=== PATIENT | female | born 1930 | race Caucasian/White ===

== ENCOUNTER 2019-07-16 17:34 | Inpatient (IN) | payer BC ==
[~2019-07-16] VITALS: Ht 167.6 cm; Wt 71.9 kg
[2019-07-16 17:35] VITALS: BP 118/52
[2019-07-16] MEDS ORDERED: Omnipaque-300 100ml vial INJ PRN (18:00)
[2019-07-16 18:04] LABS: HEMATOCRIT 29.1 % (37.0-47.0); HEMOGLOBIN 9.7 G/DL (12.0-16.0); MEAN CORPUSCULAR VOLUME 83 FL (80-99); PLATELET COUNT 836 K/UL (150-450); RED CELL DISTRIBUTION WIDTH 12.9 % (11.6-14.8)
[2019-07-16 18:06] LABS: APPEARANCE,URINE CLOUDY; BILIRUBIN, URINE NEGATIVE (NEGATIVE); COLOR,URINE BROWN; GLUCOSE, URINE (UA) NEGATIVE (NEGATIVE); KETONES,URINE 1+ (NEGATIVE); LEUKOCYTE ESTERASE ,URINE 3+ (NEGATIVE); NITRITE,URINE POSITIVE (NEGATIVE); PH,URINE 5 (4.5-8.0); PROTEIN,URINE 3+ (NEGATIVE); UROBILINOGEN,URINE 1 MG/DL (0.0-1.0)
[2019-07-16 18:11] LABS: WHITE BLOOD COUNT 47.7 K/UL (4.8-10.8)
[2019-07-16 18:21] LABS: ANION GAP 6 mmol/L (5-15); BLOOD UREA NITROGEN 27 mg/dL (7-18); CALCIUM 9.4 MG/DL (8.5-10.1); CARBON DIOXIDE 34 MMOL/L (21-32); CHLORIDE 107 MMOL/L (98-107); CREATININE 0.8 MG/DL (0.55-1.30); SODIUM 146 MMOL/L (136-145)
[2019-07-16 18:22] LABS: AMMONIA 13 umol/L (11-32)
[2019-07-16 18:25] LABS: ALANINE AMINOTRANSFERASE 27 U/L (12-78); ALBUMIN 2.1 G/DL (3.4-5.0); ALBUMIN/GLOBULIN RATIO 0.5 (1.0-2.7); ALKALINE PHOSPHATASE 324 U/L (46-116); ASPARTATE AMINO TRANSFERASE 32 U/L (15-37); BILIRUBIN,TOTAL 0.5 MG/DL (0.2-1.0)
[2019-07-16] MEDS ORDERED: cefTRIAXone 1 GM in NS 55 ML IVPB ONE (19:00)
--- NOTE | 2019-07-16 19:08 | Diagnostic Imaging Report ---
Clinical Indication: Abdominal pain and distention Technique: No oral contrast utilized, per emergency room physician request IV administration nonionic contrast. Venous phase spiral acquisition obtained through the abdomen and pelvis. Multiplanar reconstructions were generated. Total dose length product 1316 mGycm. CTDIvol(s) 20 mGy. Dose reduction achieved using automated exposure control Comparison: none Findings: There is a massive mostly cystic with slight solid component septated mass occupying much of the pelvis and mid to lower abdomen. This measures 33 cm transverse by 14 cm AP by 24 cm craniocaudad. There is an inferior vena cava filter which appears compressed by the mass. It demonstrates a broken off strut that extends into the left common iliac vein. Inferior vena cava appears to be patent. The rectum is distended by feces, measures up to 9.5 cm in diameter. There is no evidence of colonic diverticulosis or diverticulitis. The appendix is not definitely visualized, but no findings to suggest acute appendicitis are evident. No free or loculated intraperitoneal gas or fluid. No small bowel distention. The liver, gallbladder, bile ducts, pancreas, spleen are all unremarkable. The the right adrenal is unremarkable. The left adrenal demonstrates a 2 cm mass which demonstrates nonspecific soft tissue attenuation. Right kidney demonstrates a 7 mm diameter lower pole calyceal calculus. Other smaller calculi are seen in the renal collecting systems bilaterally. There is a left renal cyst. There is mild bilateral hydronephrosis. The bladder is empty, contains a suprapubic catheter. There is bilateral hip and right posterior acetabular surgical hardware. This throws off streak artifact which obscures much of the lower pelvis. The included lung bases demonstrate interstitial septal thickening and groundglass opacity. The heart is enlarged. The bones demonstrate a compression fracture deformity of the L2 vertebral body. There are also compression fracture deformities T7-T8, and large Schmorl's nodes at T11 and 12. 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 Bilateral nonobstructive renal calculi Left renal cyst Postsurgical changes of both hips and the right pelvis Basilar pulmonary interstitial septal thickening and groundglass opacity, may indicate pulmonary edema Mild cardiomegaly Multiple vertebral compression fractures, age indeterminate. Consider MRI for further evaluation if considered clinically relevant This essentially agrees with the preliminary interpretation provided overnight by [facility] service. The CT scanner at [facility] is accredited by the [employer] and the scans are performed using protocols designed to limit radiation exposure to as low as reasonably achievable to attain images of sufficient resolution adequate for diagnostic evaluation.
[2019-07-16 19:55] VITALS: BP 135/45
[2019-07-16] MEDS ORDERED: SYMBICORT 16010.2 G1 IH (20:24)
[2019-07-16] MEDS ORDERED: RISPERDAL0.5 MG ORAL (20:24)
[2019-07-16] MEDS ORDERED: PANTOPRAZOLE SO40 MG ORAL (20:24)
[2019-07-16] MEDS ORDERED: SIMETHICONE80 MG ORAL (20:24)
[2019-07-16] MEDS ORDERED: CELEXA20 MG ORAL (20:24)
[2019-07-16] MEDS ORDERED: ASPIRIN81 MG ORAL (20:24)
[2019-07-16] MEDS ORDERED: PRAVASTATIN SOD20 M1 ORAL (20:24)
[2019-07-16] MEDS ORDERED: CRANBERRY200 M1 PO (20:24)
[2019-07-16 20:40] VITALS: BP 130/59
--- NOTE | 2019-07-16 21:05 | Emergency Room Report ---
History of Present Illness General Chief Complaint: Altered Mental Status Source: Medical Record, EMS Present Illness HPI 89-year-old female presents the ED for evaluation. Brought in by EMS from boarding [facility]. Increased altered level of consciousness x1 day. Also distended abdomen. Unclear how long patient has had a distended abdomen. Afebrile. No signs of distress upon arrival. Unable to find any additional history at this time. No other aggravating relieving factors. Denies any other associated symptoms Allergies: Coded Allergies: No Known Allergies (Unverified , 07/16/19) Patient History Past Medical History: COPD, GERD, dementia Pertinent Family History: none Social History: Denies: smoking, alcohol use, drug use Now: No Immunizations: UTD Reviewed Nursing Documentation: PMH: Agreed; PSxH: Agreed Nursing Documentation-PMH Hx Cardiac Problems: No - pvd Hx COPD: Yes Hx Gastrointestinal Problems: Yes - gerd History Of Psychiatric Problem: Yes - dementia Review of Systems All Other Systems: limited Physical Exam Vital Signs Date Time Temp Pulse Resp B/P (MAP) Pulse Ox O2 Delivery O2 Flow Rate FiO2 07/16/19 17:26 97.5 92 16 118/52 (74) 96 Room Air Sp02 EP Interpretation: reviewed, normal General Appearance: cachetic, lethargic Head: normocephalic Eyes: bilateral eye normal inspection, bilateral eye PERRL ENT: normal ENT inspection Neck: normal inspection Respiratory: chest non-tender, lungs clear, normal breath sounds, speaking full sentences Cardiovascular #1: regular rate, rhythm, no edema Gastrointestinal: normal bowel sounds, non tender, soft, no guarding, no rebound, distended Rectal: deferred Genitourinary: normal inspection Musculoskeletal: back normal Neurologic: other - nonvebral Psychiatric: other - nonverbal Skin: other - see nursing skin notes Lymphatic: normal inspection Medical Decision Making Diagnostic Impression: Primary Impression: AMS (altered mental status) Qualified Codes: R41.82 - Altered mental status, unspecified Additional Impressions: UTI (urinary tract infection) Qualified Codes: N39.0 - Urinary tract infection, site not specified Abdominal mass Qualified Codes: R19.00 - Intra-abdominal and pelvic swelling, mass and lump, unspecified site Sepsis Qualified Codes: A41.9 - Sepsis, unspecified organism ER Course Hospital Course 89 yo F presents with abd distension, AMS Differential diagnoses include: sepsis, dehydration, SBO, ascites Clinical course Patient placed on stretcher. color television console monitor. After initial history and physical I ordered labs, IV fluids, UA, and CT scan Labs - marked leukocytosis, Hb/Hct stable, lactic > 3, UA + bacteria EKG - NSR, no acute ischemic changes interpreted by me CT abdomen and pelvis -large cystic mass. no obstruction Given 30 cc/kg fluid bolus. Given broad-spectrum antibiotics. Patient is DNR/ comfort Case discussed with Dr. Harris and he agreed to accept the patient to his service for further care and support I feel this is a highly complex case requiring extensive working including EKG/ Rhythm strip, Xray/CT/US, Blood/urine lab work, repeat exams while in ED, and administration of strong opiates/narcotics for pain control, admission to hospital or close patient follow up. Diagnosis - AMS, UTI, abdominal mass, sepsis Patient admitted to floor in serious condition Labs Test 07/16/19 17:50 07/16/19 17:57 07/16/19 19:47 White Blood Count 47.7 K/UL (4.8-10.8) Red Blood Count 3.50 M/UL (4.20-5.40) Hemoglobin 9.7 G/DL (12.0-16.0) Hematocrit 29.1 % (37.0-47.0) Mean Corpuscular Volume 83 FL (80-99) Mean Corpuscular Hemoglobin 27.6 PG (27.0-31.0) Mean Corpuscular Hemoglobin Concent 33.3 G/DL (32.0-36.0) Red Cell Distribution Width 12.9 % (11.6-14.8) Platelet Count 836 K/UL (150-450) Mean Platelet Volume 4.7 FL (6.5-10.1) Neutrophils (%) (Auto) % (45.0-75.0) Lymphocytes (%) (Auto) % (20.0-45.0) Monocytes (%) (Auto) % (1.0-10.0) Eosinophils (%) (Auto) % (0.0-3.0) Basophils (%) (Auto) % (0.0-2.0) Differential Total Cells Counted 100 Neutrophils % (Manual) 90 % (45-75) Lymphocytes % (Manual) 6 % (20-45) Monocytes % (Manual) 3 % (1-10) Eosinophils % (Manual) 0 % (0-3) Basophils % (Manual) 0 % (0-2) Band Neutrophils 1 % (0-8) Platelet Estimate Increased Platelet Morphology Normal Polychromasia 1+ Sodium Level 146 MMOL/L (136-145) Potassium Level 4.0 MMOL/L (3.5-5.1) Chloride Level 107 MMOL/L (98-107) Carbon Dioxide Level 34 MMOL/L (21-32) Anion Gap 6 mmol/L (5-15) Blood Urea Nitrogen 27 mg/dL (7-18) Creatinine 0.8 MG/DL (0.55-1.30) Estimat Glomerular Filtration Rate mL/min (>60) Glucose Level 151 MG/DL (74-106) Lactic Acid Level 3.10 mmol/L (0.4-2.0) 3.10 mmol/L (0.66-2.22) Calcium Level 9.4 MG/DL (8.5-10.1) Total Bilirubin 0.5 MG/DL (0.2-1.0) Aspartate Amino Transf (AST/SGOT) 32 U/L (15-37) Alanine Aminotransferase (ALT/SGPT) 27 U/L (12-78) Alkaline Phosphatase 324 U/L (46-116) Ammonia 13 umol/L (11-32) Total Protein 6.6 G/DL (6.4-8.2) Albumin 2.1 G/DL (3.4-5.0) Globulin 4.5 g/dL Albumin/Globulin Ratio 0.5 (1.0-2.7) Lipase 92 U/L (73-393) Urine Color Brown Urine Appearance Cloudy Urine pH 5 (4.5-8.0) Urine Specific [place] 1.015 (1.005-1.035) Urine Protein 3+ (NEGATIVE) Urine Glucose (UA) Negative (NEGATIVE) Urine Ketones 1+ (NEGATIVE) Urine Blood 3+ (NEGATIVE) Urine Nitrite Positive (NEGATIVE) Urine Bilirubin Negative (NEGATIVE) Urine Urobilinogen 1 MG/DL (0.0-1.0) Urine Leukocyte Esterase 3+ (NEGATIVE) Urine RBC 5-10 /HPF (0 - 2) Urine WBC Tntc /HPF (0 - 2) Urine Squamous Epithelial Cells Few /LPF (NONE/OCC) Urine Bacteria Many /HPF (NONE) EKG Diagnostic Results Rate: normal Rhythm: NSR ST Segments: no acute changes ASA given to the pt in ED: No Rhythm Strip Diag. Results EP Interpretation: yes Rhythm: NSR, no PVC's, no ectopy CT/MRI/US Diagnostic Results CT/MRI/US Diagnostic Results : Imaging Test Ordered: CT A/P Impression Impression: Large complex cystic mass measuring 33.3 x 23.6 cm involving the anterior pelvis and abdomen which is difficult to determine its origin but may be arising form an ovary. Additional Findings: Reticular and groundglass opacities within the dependent lower lobes which may be inflammatory or infectious. Hepatic steatosis. Gallbladder is unremarkable. Spleen, pancreas unremarkable. Left adrenal gland nodule measuring up to 2 samaras which is incompletely characterized. Cysts and nonobstructing calculi within both kidneys. Suprapubic Gentile catheter is noted. Uterus is likely surgically absent. Large amount of stool within the rectum which may represent fecal impaction. Appendix is not visualized. IVC filter is noted. Vascular calcifications. Postsurgical changes within the pelvis and both femurs. Last Vital Signs Date Time Temp Pulse Resp B/P (MAP) Pulse Ox O2 Delivery O2 Flow Rate FiO2 07/16/19 19:55 98.5 86 20 135/45 100 Room Air Status: improved Disposition: ADMITTED INPATIENT Condition: Serious Referrals: NON PHYSICIAN (PCP) Medardo Navarro MD Jul 16, 2019 21:05
[2019-07-16 21:34] VITALS: BP 119/78
[2019-07-16] MEDS ORDERED: THEO-24100 MG PO (23:53)
[2019-07-16] MEDS ORDERED: CERTAVITE SR-A1 EACH PO (23:53)
[2019-07-16] MEDS ORDERED: VITAMIN C250 MG ORAL (23:53)
[2019-07-16] MEDS ORDERED: VITAMIN D31000 UNI3 PO (23:53)
[2019-07-17] VITALS (7 sets, daily range): BP systolic 117–161; BP diastolic 55–84
[2019-07-17] MEDS ORDERED: Simethicone 80mg tab ORAL PRN (00:15)
[2019-07-17] MEDS: D5 1/2NS 1,000 ML IV SCH ×2 (00:33→15:59)
[2019-07-17] MEDS ORDERED: Zolpidem 5mg tab ORAL PRN (05:15)
[2019-07-17 05:57] LABS: HEMATOCRIT 24.7 % (37.0-47.0); HEMOGLOBIN 7.7 G/DL (12.0-16.0); MEAN CORPUSCULAR VOLUME 86 FL (80-99); PLATELET COUNT 789 K/UL (150-450); RED BLOOD COUNT 2.88 M/UL (4.20-5.40); RED CELL DISTRIBUTION WIDTH 14.4 % (11.6-14.8)
[2019-07-17 06:05] LABS: WHITE BLOOD COUNT 36.5 K/UL (4.8-10.8)
[2019-07-17 06:19] LABS: ANION GAP 3 mmol/L (5-15); BLOOD UREA NITROGEN 20 mg/dL (7-18); CALCIUM 8.8 MG/DL (8.5-10.1); CARBON DIOXIDE 32 MMOL/L (21-32); CHLORIDE 111 MMOL/L (98-107); CREATININE 0.7 MG/DL (0.55-1.30); SODIUM 146 MMOL/L (136-145)
--- NOTE | 2019-07-17 06:26 | Consultation ---
History of Present Illness General Chief Complaint: Altered Mental Status Present Illness Allergies: Coded Allergies: PENICILLINS (Verified Allergy, Unknown, 07/16/19) Medication History Scheduled Ascorbic Acid* (Vitamin C*), Unknown Dose ORAL DAILY, (Reported) Aspirin* (Aspirin*), 81 MG ORAL DAILY, (Reported) Cholecalciferol (Vitamin D3) (Vitamin D3), 1,000 UNIT PO DAILY, (Reported) Citalopram Hydrobromide* (Celexa*), 20 MG ORAL DAILY, (Reported) Mu-Vits-Min Th/Lycopene/Lutein (Certavite Sr-Antioxidant Tab), 1 EACH PO DAILY, (Reported) Pantoprazole* (Pantoprazole*), 50 MG ORAL DAILY, (Reported) Pravastatin Sod* (Pravastatin Sod*), 40 MG ORAL BEDTIME, (Reported) Risperidone* (Risperdal*), 0.5 MG ORAL DAILY, (Reported) Scheduled PRN Simethicone* (Simethicone*), 125 MG ORAL Q8H PRN for GAS PAIN, (Reported) Miscellaneous Medications Budesonide/Formoterol Fumarate (Symbicort 160-4.5 Mcg Inhaler), 2 PUFF IH, ( Reported) Cranberry Extract (Cranberry), 500 MG PO, (Reported) Theophylline Anhydrous (Christiano-24), Unknown Dose PO, (Reported) Patient History Healthcare decision maker N Resuscitation status Do Not Resuscitate Advanced Directive on File Physical Exam Last 24 Hour Vital Signs Date Time Temp Pulse Resp B/P (MAP) Pulse Ox O2 Delivery O2 Flow Rate FiO2 07/17/19 04:00 99.3 92 20 128/59 (82) 94 07/17/19 00:00 98.4 95 20 123/60 (81) 94 07/16/19 22:45 Room Air 07/16/19 21:35 98.2 80 16 119/78 100 Room Air 07/16/19 21:34 98.2 80 16 119/78 100 Room Air 07/16/19 20:40 98.2 95 20 130/59 (82) 97 07/16/19 19:55 98.5 86 20 135/45 100 Room Air 07/16/19 17:35 92 16 Room Air 07/16/19 17:35 99.6 92 16 118/52 96 Room Air 07/16/19 17:26 97.5 92 16 118/52 (74) 96 Room Air Intake and Output 07/16/19 07/17/19 19:00 07:00 Intake Total 500 ml 1175 ml Output Total 200 ml Balance 300 ml 1175 ml Intake IV Total 500 ml 1175 ml Output Urine Total 200 ml Laboratory Tests Test 07/16/19 17:50 07/16/19 17:57 07/16/19 19:47 07/17/19 04:48 White Blood Count 47.7 K/UL (4.8-10.8) *H 36.5 K/UL (4.8-10.8) *H Red Blood Count 3.50 M/UL (4.20-5.40) L 2.88 M/UL (4.20-5.40) L Hemoglobin 9.7 G/DL (12.0-16.0) L 7.7 G/DL (12.0-16.0) L Hematocrit 29.1 % (37.0-47.0) L 24.7 % (37.0-47.0) L Mean Corpuscular Volume 83 FL (80-99) 86 FL (80-99) Mean Corpuscular Hemoglobin 27.6 PG (27.0-31.0) 26.6 PG (27.0-31.0) L Mean Corpuscular Hemoglobin Concent 33.3 G/DL (32.0-36.0) 31.0 G/DL (32.0-36.0) L Red Cell Distribution Width 12.9 % (11.6-14.8) 14.4 % (11.6-14.8) Platelet Count 836 K/UL (150-450) H 789 K/UL (150-450) H Mean Platelet Volume 4.7 FL (6.5-10.1) L 4.6 FL (6.5-10.1) L Neutrophils (%) (Auto) % (45.0-75.0) % (45.0-75.0) Lymphocytes (%) (Auto) % (20.0-45.0) % (20.0-45.0) Monocytes (%) (Auto) % (1.0-10.0) % (1.0-10.0) Eosinophils (%) (Auto) % (0.0-3.0) % (0.0-3.0) Basophils (%) (Auto) % (0.0-2.0) % (0.0-2.0) Differential Total Cells Counted 100 Neutrophils % (Manual) 90 % (45-75) H Pending Lymphocytes % (Manual) 6 % (20-45) L Pending Monocytes % (Manual) 3 % (1-10) Eosinophils % (Manual) 0 % (0-3) Basophils % (Manual) 0 % (0-2) Band Neutrophils 1 % (0-8) Platelet Estimate Increased H Pending Platelet Morphology Normal Pending Polychromasia 1+ Sodium Level 146 MMOL/L (136-145) H Pending Potassium Level 4.0 MMOL/L (3.5-5.1) Pending Chloride Level 107 MMOL/L (98-107) Pending Carbon Dioxide Level 34 MMOL/L (21-32) H Pending Anion Gap 6 mmol/L (5-15) Blood Urea Nitrogen 27 mg/dL (7-18) H Pending Creatinine 0.8 MG/DL (0.55-1.30) Pending Estimat Glomerular Filtration Rate mL/min (>60) Pending Glucose Level 151 MG/DL (74-106) H Pending Lactic Acid Level 3.10 mmol/L (0.4-2.0) H 3.10 mmol/L (0.66-2.22) H Calcium Level 9.4 MG/DL (8.5-10.1) Pending Total Bilirubin 0.5 MG/DL (0.2-1.0) Aspartate Amino Transf (AST/SGOT) 32 U/L (15-37) Alanine Aminotransferase (ALT/SGPT) 27 U/L (12-78) Alkaline Phosphatase 324 U/L (46-116) H Ammonia 13 umol/L (11-32) Total Protein 6.6 G/DL (6.4-8.2) Albumin 2.1 G/DL (3.4-5.0) L Globulin 4.5 g/dL Albumin/Globulin Ratio 0.5 (1.0-2.7) L Lipase 92 U/L (73-393) Urine Color Brown Urine Appearance Cloudy Urine pH 5 (4.5-8.0) Urine Specific [place] 1.015 (1.005-1.035) Urine Protein 3+ (NEGATIVE) H Urine Glucose (UA) Negative (NEGATIVE) Urine Ketones 1+ (NEGATIVE) H Urine Blood 3+ (NEGATIVE) H Urine Nitrite Positive (NEGATIVE) H Urine Bilirubin Negative (NEGATIVE) Urine Urobilinogen 1 MG/DL (0.0-1.0) H Urine Leukocyte Esterase 3+ (NEGATIVE) H Urine RBC 5-10 /HPF (0 - 2) H Urine WBC Tntc /HPF (0 - 2) H Urine Squamous Epithelial Cells Few /LPF (NONE/OCC) Urine Bacteria Many /HPF (NONE) H Microbiology Date/Time Source Procedure Growth Status 07/16/19 20:25 Rectum Received Height (Feet): 5 Height (Inches): 6.00 Weight (Pounds): 180 Medications Current Medications Medications (Trade) Dose Ordered Sig/Irene Route PRN Reason Start Time Stop Time Status Last Admin Dose Admin Acetaminophen (Tylenol) 650 mg Q8H PRN ORAL Mild Pain/Temp > 100.5 07/17/19 05:15 08/16/19 05:14 Aspirin (ASA) 81 mg DAILY ORAL 07/17/19 09:00 08/16/19 08:59 Budesonide/ Formoterol Fumarate (Symbicort 160/ 4.5) 2 puff BIDRT INH 07/17/19 10:00 08/16/19 09:59 Ceftriaxone Sodium 1 gm/ Dextrose 55 ml @ 110 mls/hr Q24H IVPB 07/17/19 19:00 07/24/19 18:59 Citalopram Hydrobromide (celeXA) 20 mg DAILY ORAL 07/17/19 09:00 08/16/19 08:59 Dextrose/Sodium Chloride 1,000 ml @ 60 mls/hr [id number] IV 07/17/19 00:15 08/16/19 00:14 07/17/19 00:33 Diphenhydramine HCl (Benadryl) 25 mg Q12H PRN ORAL Itching 07/17/19 05:15 08/16/19 05:14 Enoxaparin Sodium (Lovenox) 40 mg DAILY SUBQ 07/17/19 09:00 08/16/19 08:59 Iohexol (OMNIPAQUE-300 100ml) 100 ml NOW PRN INJ Radiology Procedure 07/16/19 18:00 07/18/19 17:46 Pantoprazole (Protonix) 40 mg DAILY@0630 ORAL 07/17/19 06:30 08/16/19 06:29 Pravastatin Sodium (Pravachol) 40 mg BEDTIME ORAL 07/17/19 21:00 08/16/19 20:59 Risperidone (RisperDAL) 0.5 mg DAILY ORAL 07/17/19 09:00 08/16/19 08:59 Simethicone (Mylicon) 125 mg Q8H PRN ORAL GAS PAIN 07/17/19 00:15 08/16/19 00:14 Zolpidem Tartrate (Ambien) 5 mg HSPRN PRN ORAL Insomnia 07/17/19 05:15 07/24/19 05:14 Assessment/Plan Assessment/Plan: Oncology Consult Source: Medical Record, EMS REQ MD: Felix Harris DOS: 07/17/19 RFC: Cystic mass eval ID 89-year-old female presents the ED for evaluation. Brought in by EMS from boarding care. Increased altered level of consciousness x1 day. Also distended abdomen. Unclear how long patient has had a distended abdomen. Afebrile. No signs of distress upon arrival. Unable to find any additional history at this time. No other aggravating relieving factors. Denies any other associated symptoms, imaging has been reviewed. Allergies: No Known Allergies (Unverified , 07/16/19) Patient History Past Medical History: COPD, GERD, dementia Pertinent Family History: none Social History: Denies: smoking, alcohol use, drug use Now: No Immunizations: UTD Reviewed Nursing Documentation: PMH: Agreed; PSxH: Agreed Nursing Documentation-PMH Hx Cardiac Problems: No - pvd Hx COPD: Yes Hx Gastrointestinal Problems: Yes - gerd History Of Psychiatric Problem: Yes - dementia Review of Systems All Other Systems: limited PE General: cachetic, lethargic, sleepy difficult to wake up Respiratory: ctab, no cwr Cardiovascular: regular rate, rhythm, no edema Gastrointestinal: soft, nt, nd Musculoskeletal: back normal Neurologic: other - nonvebral Lymphatic: normal inspection Labs: have been reviewed Imaging: reviewed Assessment and Recs: # Large cystic adexnal mass, likely c/w ovarian or gynecological primary --> apparently has had eval in the past --> imaging has been reviewed --> is on dnr/comfort care for this # Leukocytosis is related to underlying uti with septic shock --> wbc trend 48-->37 --> on abx as per id --> smear has been reviewed --> lactic acid remains high --> ivf have been started # Anemia of chronic disease --> panel ordered --> transfuse if hgb drops further, hgb 7.7 # AMS (altered mental status) --> likely related to underlying uti --> on abx as per id # UTI (urinary tract infection) --> lactic > 3, UA + bacteria # Abdominal mass # Sepsis # Dvt ppx scds Appreciate consultation and dw Gonzalo Dickey MD Jul 17, 2019 06:26
--- NOTE | 2019-07-17 07:03 | CDS Physician Query ---
Clarification is required for compliance, coding accuracy, and to reflect severity of illness for this patient Dear Gonzalo Cruz MD Date: 07/17/2019 Legal Support Specialist/CDS Name: Austin Kaiser 89-year-old female presents the ED for evaluation. Brought in by EMS from the [facility]. Increased altered level of consciousness x1 day. Also distended abdomen. Unclear how long patient has had a distended abdomen. "Altered Mental Status" documented in Consultation notes Please indicate the nature and chronicity of the condition below: [] Metabolic Encephalopathy [] Toxic Encephalopathy [] Toxic - Metabolic Encephalopathy [] Encephalopathy, Other [] Dementia with Delirium [] Hypoxic encephalopathy [] Posterior reversible encephalopathy syndrome [] Other: [] Not Applicable Present on Admission: [] Yes [] No [] Clinically Undetermined Physician signature Date Please also document in your Progress Notes and/or Discharge Summary and indicate if the condition was present on admission. MTDD
[2019-07-17 07:47] LABS: FERRITIN 317 NG/ML (8-388)
[2019-07-17 08:19] LABS: % IRON SATURATION 8 % (15-50); IRON 9 ug/dL (50-175); TOTAL IRON BINDING CAPACITY 115 ug/dL (250-450)
[2019-07-17] MEDS: Citalopram Hydrobromide 10mg Tab ORAL SCH (09:28)
[2019-07-17] MEDS: Aspirin Baby 81mg ORAL SCH (09:28)
[2019-07-17] MEDS: Enoxaparin 40mg Inj SUBQ SCH (09:29)
--- NOTE | 2019-07-17 12:13 | Consultation ---
History of Present Illness General Date patient seen: Jul 17, 2019 Chief Complaint: Altered Mental Status Present Illness HPI 89 y/o F with hx of COPD, GERD, PVD, Dementia presented to ED on 07/16 with 1 days of altered level of consciousness, distended abdomen Allergies: Coded Allergies: PENICILLINS (Verified Allergy, Unknown, 07/17/19) tolerates Ceftriaxone Medication History Scheduled Ascorbic Acid* (Vitamin C*), Unknown Dose ORAL DAILY, (Reported) Aspirin* (Aspirin*), 81 MG ORAL DAILY, (Reported) Cholecalciferol (Vitamin D3) (Vitamin D3), 1,000 UNIT PO DAILY, (Reported) Citalopram Hydrobromide* (Celexa*), 20 MG ORAL DAILY, (Reported) Mu-Vits-Min Th/Lycopene/Lutein (Certavite Sr-Antioxidant Tab), 1 EACH PO DAILY, (Reported) Pantoprazole* (Pantoprazole*), 50 MG ORAL DAILY, (Reported) Pravastatin Sod* (Pravastatin Sod*), 40 MG ORAL BEDTIME, (Reported) Risperidone* (Risperdal*), 0.5 MG ORAL DAILY, (Reported) Scheduled PRN Simethicone* (Simethicone*), 125 MG ORAL Q8H PRN for GAS PAIN, (Reported) Miscellaneous Medications Budesonide/Formoterol Fumarate (Symbicort 160-4.5 Mcg Inhaler), 2 PUFF IH, ( Reported) Cranberry Extract (Cranberry), 500 MG PO, (Reported) Theophylline Anhydrous (Christiano-24), Unknown Dose PO, (Reported) Patient History Healthcare decision maker N Resuscitation status Do Not Resuscitate Advanced Directive on File Patient History Narrative Pmhx: as above Shx: Denies: smoking, alcohol use, drug use Fhx: non contributory Physical Exam Physical Exam Narrative General Appearance: cachetic, lethargic Head: normocephalic Eyes: bilateral eye normal inspection, bilateral eye PERRL ENT: normal ENT inspection Neck: normal inspection Respiratory: chest non-tender, lungs clear, normal breath sounds, speaking full sentences Cardiovascular #1: regular rate, rhythm, no edema Gastrointestinal: normal bowel sounds, non tender, soft, no guarding, no rebound, distended Genitourinary: normal inspection Musculoskeletal: back normal Neurologic: other - nonvebral Psychiatric: other - nonverbal Skin: other - see nursing skin notes Lymphatic: normal inspection Last 24 Hour Vital Signs Date Time Temp Pulse Resp B/P (MAP) Pulse Ox O2 Delivery O2 Flow Rate FiO2 07/17/19 09:00 Room Air 07/17/19 08:00 97.7 102 18 143/55 (84) 94 07/17/19 04:00 99.3 92 20 128/59 (82) 94 07/17/19 00:00 98.4 95 20 123/60 (81) 94 07/16/19 22:45 Room Air 07/16/19 21:35 98.2 80 16 119/78 100 Room Air 07/16/19 21:34 98.2 80 16 119/78 100 Room Air 07/16/19 20:40 98.2 95 20 130/59 (82) 97 07/16/19 19:55 98.5 86 20 135/45 100 Room Air 07/16/19 17:35 92 16 Room Air 07/16/19 17:35 99.6 92 16 118/52 96 Room Air 07/16/19 17:26 97.5 92 16 118/52 (74) 96 Room Air Intake and Output 07/16/19 07/17/19 19:00 07:00 Intake Total 500 ml 1175 ml Output Total 200 ml 500 ml Balance 300 ml 675 ml Intake IV Total 500 ml 1175 ml Output Urine Total 200 ml 500 ml Laboratory Tests Test 07/16/19 17:50 07/16/19 17:57 07/16/19 19:47 07/17/19 04:48 White Blood Count 47.7 K/UL (4.8-10.8) *H 36.5 K/UL (4.8-10.8) *H Red Blood Count 3.50 M/UL (4.20-5.40) L 2.88 M/UL (4.20-5.40) L Hemoglobin 9.7 G/DL (12.0-16.0) L 7.7 G/DL (12.0-16.0) L Hematocrit 29.1 % (37.0-47.0) L 24.7 % (37.0-47.0) L Mean Corpuscular Volume 83 FL (80-99) 86 FL (80-99) Mean Corpuscular Hemoglobin 27.6 PG (27.0-31.0) 26.6 PG (27.0-31.0) L Mean Corpuscular Hemoglobin Concent 33.3 G/DL (32.0-36.0) 31.0 G/DL (32.0-36.0) L Red Cell Distribution Width 12.9 % (11.6-14.8) 14.4 % (11.6-14.8) Platelet Count 836 K/UL (150-450) H 789 K/UL (150-450) H Mean Platelet Volume 4.7 FL (6.5-10.1) L 4.6 FL (6.5-10.1) L Neutrophils (%) (Auto) % (45.0-75.0) % (45.0-75.0) Lymphocytes (%) (Auto) % (20.0-45.0) % (20.0-45.0) Monocytes (%) (Auto) % (1.0-10.0) % (1.0-10.0) Eosinophils (%) (Auto) % (0.0-3.0) % (0.0-3.0) Basophils (%) (Auto) % (0.0-2.0) % (0.0-2.0) Differential Total Cells Counted 100 100 Neutrophils % (Manual) 90 % (45-75) H 90 % (45-75) H Lymphocytes % (Manual) 6 % (20-45) L 4 % (20-45) L Monocytes % (Manual) 3 % (1-10) 6 % (1-10) Eosinophils % (Manual) 0 % (0-3) 0 % (0-3) Basophils % (Manual) 0 % (0-2) 0 % (0-2) Band Neutrophils 1 % (0-8) 0 % (0-8) Platelet Estimate Increased H Increased H Platelet Morphology Normal Normal Polychromasia 1+ Sodium Level 146 MMOL/L (136-145) H 146 MMOL/L (136-145) H Potassium Level 4.0 MMOL/L (3.5-5.1) 3.0 MMOL/L (3.5-5.1) L Chloride Level 107 MMOL/L (98-107) 111 MMOL/L (98-107) H Carbon Dioxide Level 34 MMOL/L (21-32) H 32 MMOL/L (21-32) Anion Gap 6 mmol/L (5-15) 3 mmol/L (5-15) L Blood Urea Nitrogen 27 mg/dL (7-18) H 20 mg/dL (7-18) H Creatinine 0.8 MG/DL (0.55-1.30) 0.7 MG/DL (0.55-1.30) Estimat Glomerular Filtration Rate mL/min (>60) mL/min (>60) Glucose Level 151 MG/DL (74-106) H 105 MG/DL (74-106) Lactic Acid Level 3.10 mmol/L (0.4-2.0) H 3.10 mmol/L (0.66-2.22) H Calcium Level 9.4 MG/DL (8.5-10.1) 8.8 MG/DL (8.5-10.1) Total Bilirubin 0.5 MG/DL (0.2-1.0) Aspartate Amino Transf (AST/SGOT) 32 U/L (15-37) Alanine Aminotransferase (ALT/SGPT) 27 U/L (12-78) Alkaline Phosphatase 324 U/L (46-116) H Ammonia 13 umol/L (11-32) Total Protein 6.6 G/DL (6.4-8.2) Albumin 2.1 G/DL (3.4-5.0) L Globulin 4.5 g/dL Albumin/Globulin Ratio 0.5 (1.0-2.7) L Lipase 92 U/L (73-393) Urine Color Brown Urine Appearance Cloudy Urine pH 5 (4.5-8.0) Urine Specific [place] 1.015 (1.005-1.035) Urine Protein 3+ (NEGATIVE) H Urine Glucose (UA) Negative (NEGATIVE) Urine Ketones 1+ (NEGATIVE) H Urine Blood 3+ (NEGATIVE) H Urine Nitrite Positive (NEGATIVE) H Urine Bilirubin Negative (NEGATIVE) Urine Urobilinogen 1 MG/DL (0.0-1.0) H Urine Leukocyte Esterase 3+ (NEGATIVE) H Urine RBC 5-10 /HPF (0 - 2) H Urine WBC Tntc /HPF (0 - 2) H Urine Squamous Epithelial Cells Few /LPF (NONE/OCC) Urine Bacteria Many /HPF (NONE) H Hypochromasia 3+ Anisocytosis 1+ Test 07/17/19 06:50 Reticulocyte Count 1.6 % (0.5-2.0) Iron Level 9 ug/dL (50-175) L Total Iron Binding Capacity 115 ug/dL (250-450) L Percent Iron Saturation 8 % (15-50) L Unsaturated Iron Binding 106 ug/dL (112-346) L Ferritin 317 NG/ML (8-388) Vitamin B12 Level 1773 PG/ML (193-986) H Microbiology Date/Time Source Procedure Growth Status 07/16/19 20:25 Rectum Received Height (Feet): 5 Height (Inches): 6.00 Weight (Pounds): 158 Medications Current Medications Medications (Trade) Dose Ordered Sig/Irene Route PRN Reason Start Time Stop Time Status Last Admin Dose Admin Acetaminophen (Tylenol) 650 mg Q8H PRN ORAL Mild Pain/Temp > 100.5 07/17/19 05:15 08/16/19 05:14 Aspirin (ASA) 81 mg DAILY ORAL 07/17/19 09:00 08/16/19 08:59 07/17/19 09:28 Budesonide/ Formoterol Fumarate (Symbicort 160/ 4.5) 2 puff BIDRT INH 07/17/19 10:00 08/16/19 09:59 07/17/19 09:33 Ceftriaxone Sodium 1 gm/ Dextrose 55 ml @ 110 mls/hr Q24H IVPB 07/17/19 19:00 07/24/19 18:59 Citalopram Hydrobromide (celeXA) 20 mg DAILY ORAL 07/17/19 09:00 08/16/19 08:59 07/17/19 09:28 Dextrose/Sodium Chloride 1,000 ml @ 60 mls/hr [id number] IV 07/17/19 00:15 08/16/19 00:14 07/17/19 00:33 Diphenhydramine HCl (Benadryl) 25 mg Q12H PRN ORAL Itching 07/17/19 05:15 08/16/19 05:14 Enoxaparin Sodium (Lovenox) 40 mg DAILY SUBQ 07/17/19 09:00 08/16/19 08:59 07/17/19 09:29 Iohexol (OMNIPAQUE-300 100ml) 100 ml NOW PRN INJ Radiology Procedure 07/16/19 18:00 07/18/19 17:46 Pantoprazole (Protonix) 40 mg DAILY@0630 ORAL 07/17/19 06:30 08/16/19 06:29 07/17/19 06:24 Pravastatin Sodium (Pravachol) 40 mg BEDTIME ORAL 07/17/19 21:00 08/16/19 20:59 Risperidone (RisperDAL) 0.5 mg DAILY ORAL 07/17/19 09:00 08/16/19 08:59 07/17/19 09:28 Simethicone (Mylicon) 125 mg Q8H PRN ORAL GAS PAIN 07/17/19 00:15 08/16/19 00:14 Zolpidem Tartrate (Ambien) 5 mg HSPRN PRN ORAL Insomnia 07/17/19 05:15 07/24/19 05:14 Assessment/Plan Assessment/Plan: Abx: Ceftriaxone 07/16- Assessment: Sepsis 2ry to UTI -u/a wbc tnct, nit +, leuk +3 Afebrile Hyperleukocytosis; improving Abd distention 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 Inferior vena cava filter, compressed by the mass and demonstrating a broken off strut. Evidence of rectal fecal impaction. 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 Bilateral nonobstructive renal calculi. Left renal cyst. Postsurgical changes of both hips and the right pelvis. Basilar pulmonary interstitial septal thickening and groundglass opacity, may indicate pulmonary edema. Mild cardiomegaly. Multiple vertebral compression fractures, age indeterminate. COPD GERD PVD Dementia Plan: -Continue empiric Ceftriaxone #2 pending urine culture -if HD unstable, switch to Meropenem -f/u cx -Monitor CBC/CMP, temperatures Thank you for this consultation. Will continue to follow along with you. Discussed with Shameka Nuñez M.D. Jul 17, 2019 12:13
--- NOTE | 2019-07-17 12:37 | GI Initial Consult Note ---
History of Present Illness General Date patient seen: Jul 17, 2019 Time patient seen: 12:37 Reason for Hospitalization: Altered Mental Status Referring physician: RADHA VITALE Reason for Consultation: Abdominal distention Present Illness HPI 89-year-old female presents the ED for evaluation. Brought in by EMS from boarding care. Increased altered level of consciousness x1 day. Also distended abdomen. Unclear how long patient has had a distended abdomen. Afebrile. No signs of distress upon arrival. Unable to find any additional history at this time. No other aggravating relieving factors. Denies any other associated symptoms. GI consulted for reported abdominal distention. ROS limited, patient with history of dementia. Patient seen, awake alert no apparent distress with no active signs or symptoms of any nausea vomiting. Patient's currently tolerating a regular diet without any complications noted. Abdominal pelvis CT was performed noted that the patient had a 33 x 14 x 24 cm complex cystic mass in the lower abdomen and upper pelvis which most likely represented malignancy of ovarian origin. In addition, the CT showed evidence of a rectal fecal impaction. Unknown history of endoscopic or colonoscopy. Laboratory review shows iron deficiency and elevated alkaline phosphatase. Home Meds Reported Medications Ascorbic Acid* (VITAMIN C*) 250 Mg Tablet, ORAL DAILY, #30 TAB 0 Refills 07/16/19 Mu-Vits-Min Th/Lycopene/Lutein (CERTAVITE SR-ANTIOXIDANT TAB) 1 Each Tablet, 1 EACH PO DAILY, TAB 07/16/19 Theophylline Anhydrous (JUANJOSE-24) 100 Mg Cap.er.24h, PO, CAP 07/16/19 Cholecalciferol (Vitamin D3) (VITAMIN D3) 1,000 Unit Tab.chew, 1000 UNIT PO DAILY, TAB 07/16/19 Budesonide/Formoterol Fumarate (SYMBICORT 160-4.5 MCG INHALER) 10.2 Gm Hfa.aer.ad, 2 PUFF IH, #1 INH 0 Refills 07/16/19 Simethicone* (SIMETHICONE*) 80 Mg Tab.chew, 125 MG ORAL Q8H PRN for GAS PAIN, # 20 TAB 0 Refills 07/16/19 Aspirin* (ASPIRIN*) 81 Mg Tab.chew, 81 MG ORAL DAILY, TAB 07/16/19 Pravastatin Sod* (PRAVASTATIN SOD*) 20 Mg Tablet, 40 MG ORAL BEDTIME, TAB 07/16/19 Citalopram Hydrobromide* (CELEXA*) 20 Mg Tablet, 20 MG ORAL DAILY, TAB 07/16/19 Cranberry Extract (CRANBERRY) 200 Mg Capsule, 500 MG PO, CAP 07/16/19 Risperidone* (RISPERDAL*) 0.5 Mg Tablet, 0.5 MG ORAL DAILY, #30 TAB 0 Refills 07/16/19 Pantoprazole* (PANTOPRAZOLE*) 40 Mg Tablet.dr, 50 MG ORAL DAILY, TAB 07/16/19 Med list reviewed/reconciled: Yes Allergies: Coded Allergies: PENICILLINS (Verified Allergy, Unknown, 07/17/19) tolerates Ceftriaxone Patient History Limited by: medical condition History Provided By: Medical Record PMH Narrative Past Medical History: COPD, GERD, dementia Pertinent Family History: none Social History: Denies: smoking, alcohol use, drug use Now: No Immunizations: UTD Reviewed Nursing Documentation: PMH: Agreed; PSxH: Agreed Nursing Documentation-PMH Hx Cardiac Problems: No - pvd Hx COPD: Yes Hx Gastrointestinal Problems: Yes - gerd History Of Psychiatric Problem: Yes - dementia Social History: Denies: smoking, alcohol use, drug use, other Review of Systems All Other Systems: limited Physical Exam Vital Signs Date Time Temp Pulse Resp B/P (MAP) Pulse Ox O2 Delivery O2 Flow Rate FiO2 07/16/19 17:26 97.5 92 16 118/52 (74) 96 Room Air Sp02 EP Interpretation: reviewed Labs Laboratory Tests Test 07/16/19 17:50 07/16/19 17:57 07/16/19 19:47 07/17/19 04:48 White Blood Count 47.7 K/UL (4.8-10.8) *H 36.5 K/UL (4.8-10.8) *H Red Blood Count 3.50 M/UL (4.20-5.40) L 2.88 M/UL (4.20-5.40) L Hemoglobin 9.7 G/DL (12.0-16.0) L 7.7 G/DL (12.0-16.0) L Hematocrit 29.1 % (37.0-47.0) L 24.7 % (37.0-47.0) L Mean Corpuscular Volume 83 FL (80-99) 86 FL (80-99) Mean Corpuscular Hemoglobin 27.6 PG (27.0-31.0) 26.6 PG (27.0-31.0) L Mean Corpuscular Hemoglobin Concent 33.3 G/DL (32.0-36.0) 31.0 G/DL (32.0-36.0) L Red Cell Distribution Width 12.9 % (11.6-14.8) 14.4 % (11.6-14.8) Platelet Count 836 K/UL (150-450) H 789 K/UL (150-450) H Mean Platelet Volume 4.7 FL (6.5-10.1) L 4.6 FL (6.5-10.1) L Neutrophils (%) (Auto) % (45.0-75.0) % (45.0-75.0) Lymphocytes (%) (Auto) % (20.0-45.0) % (20.0-45.0) Monocytes (%) (Auto) % (1.0-10.0) % (1.0-10.0) Eosinophils (%) (Auto) % (0.0-3.0) % (0.0-3.0) Basophils (%) (Auto) % (0.0-2.0) % (0.0-2.0) Differential Total Cells Counted 100 100 Neutrophils % (Manual) 90 % (45-75) H 90 % (45-75) H Lymphocytes % (Manual) 6 % (20-45) L 4 % (20-45) L Monocytes % (Manual) 3 % (1-10) 6 % (1-10) Eosinophils % (Manual) 0 % (0-3) 0 % (0-3) Basophils % (Manual) 0 % (0-2) 0 % (0-2) Band Neutrophils 1 % (0-8) 0 % (0-8) Platelet Estimate Increased H Increased H Platelet Morphology Normal Normal Polychromasia 1+ Sodium Level 146 MMOL/L (136-145) H 146 MMOL/L (136-145) H Potassium Level 4.0 MMOL/L (3.5-5.1) 3.0 MMOL/L (3.5-5.1) L Chloride Level 107 MMOL/L (98-107) 111 MMOL/L (98-107) H Carbon Dioxide Level 34 MMOL/L (21-32) H 32 MMOL/L (21-32) Anion Gap 6 mmol/L (5-15) 3 mmol/L (5-15) L Blood Urea Nitrogen 27 mg/dL (7-18) H 20 mg/dL (7-18) H Creatinine 0.8 MG/DL (0.55-1.30) 0.7 MG/DL (0.55-1.30) Estimat Glomerular Filtration Rate mL/min (>60) mL/min (>60) Glucose Level 151 MG/DL (74-106) H 105 MG/DL (74-106) Lactic Acid Level 3.10 mmol/L (0.4-2.0) H 3.10 mmol/L (0.66-2.22) H Calcium Level 9.4 MG/DL (8.5-10.1) 8.8 MG/DL (8.5-10.1) Total Bilirubin 0.5 MG/DL (0.2-1.0) Aspartate Amino Transf (AST/SGOT) 32 U/L (15-37) Alanine Aminotransferase (ALT/SGPT) 27 U/L (12-78) Alkaline Phosphatase 324 U/L (46-116) H Ammonia 13 umol/L (11-32) Total Protein 6.6 G/DL (6.4-8.2) Albumin 2.1 G/DL (3.4-5.0) L Globulin 4.5 g/dL Albumin/Globulin Ratio 0.5 (1.0-2.7) L Lipase 92 U/L (73-393) Urine Color Brown Urine Appearance Cloudy Urine pH 5 (4.5-8.0) Urine Specific [place] 1.015 (1.005-1.035) Urine Protein 3+ (NEGATIVE) H Urine Glucose (UA) Negative (NEGATIVE) Urine Ketones 1+ (NEGATIVE) H Urine Blood 3+ (NEGATIVE) H Urine Nitrite Positive (NEGATIVE) H Urine Bilirubin Negative (NEGATIVE) Urine Urobilinogen 1 MG/DL (0.0-1.0) H Urine Leukocyte Esterase 3+ (NEGATIVE) H Urine RBC 5-10 /HPF (0 - 2) H Urine WBC Tntc /HPF (0 - 2) H Urine Squamous Epithelial Cells Few /LPF (NONE/OCC) Urine Bacteria Many /HPF (NONE) H Hypochromasia 3+ Anisocytosis 1+ Test 07/17/19 06:50 Reticulocyte Count 1.6 % (0.5-2.0) Iron Level 9 ug/dL (50-175) L Total Iron Binding Capacity 115 ug/dL (250-450) L Percent Iron Saturation 8 % (15-50) L Unsaturated Iron Binding 106 ug/dL (112-346) L Ferritin 317 NG/ML (8-388) Vitamin B12 Level 1773 PG/ML (193-986) H General Appearance: no apparent distress Head: normocephalic EENT: normal ENT inspection Neck: supple Respiratory: normal breath sounds Cardiovascular: normal rate Gastrointestinal: distended, other - See HPI Rectal: other - CT Skin: normal inspection, normal color, no rash, warm/dry Lymphatic: normal inspection Current Medications Current Medications Medications (Trade) Dose Ordered Sig/Irene Route PRN Reason Start Time Stop Time Status Last Admin Dose Admin Acetaminophen (Tylenol) 650 mg Q8H PRN ORAL Mild Pain/Temp > 100.5 07/17/19 05:15 08/16/19 05:14 Aspirin (ASA) 81 mg DAILY ORAL 07/17/19 09:00 08/16/19 08:59 07/17/19 09:28 Budesonide/ Formoterol Fumarate (Symbicort 160/ 4.5) 2 puff BIDRT INH 07/17/19 10:00 08/16/19 09:59 07/17/19 09:33 Ceftriaxone Sodium 1 gm/ Dextrose 55 ml @ 110 mls/hr Q24H IVPB 07/17/19 19:00 07/24/19 18:59 Citalopram Hydrobromide (celeXA) 20 mg DAILY ORAL 07/17/19 09:00 08/16/19 08:59 07/17/19 09:28 Dextrose/Sodium Chloride 1,000 ml @ 60 mls/hr [id number] IV 07/17/19 00:15 08/16/19 00:14 07/17/19 00:33 Diphenhydramine HCl (Benadryl) 25 mg Q12H PRN ORAL Itching 07/17/19 05:15 08/16/19 05:14 Enoxaparin Sodium (Lovenox) 40 mg DAILY SUBQ 07/17/19 09:00 08/16/19 08:59 07/17/19 09:29 Iohexol (OMNIPAQUE-300 100ml) 100 ml NOW PRN INJ Radiology Procedure 07/16/19 18:00 07/18/19 17:46 Pantoprazole (Protonix) 40 mg DAILY@0630 ORAL 07/17/19 06:30 08/16/19 06:29 07/17/19 06:24 Pravastatin Sodium (Pravachol) 40 mg BEDTIME ORAL 07/17/19 21:00 08/16/19 20:59 Risperidone (RisperDAL) 0.5 mg DAILY ORAL 07/17/19 09:00 08/16/19 08:59 07/17/19 09:28 Simethicone (Mylicon) 125 mg Q8H PRN ORAL GAS PAIN 07/17/19 00:15 08/16/19 00:14 Zolpidem Tartrate (Ambien) 5 mg HSPRN PRN ORAL Insomnia 07/17/19 05:15 07/24/19 05:14 GI: Plan Problems: (1) Fecal impaction (2) Pelvic mass (3) Abdominal mass (4) Abdominal pain Plan No plans for any GI procedures at this time Follow-up oncology recommendations given cystic mass Start mineral oil daily and mineral oil enema x1 for fecal impaction Colace plus MiraLAX Consider digital disimpaction if medical management fails Monitor H&H, as needed transfusions Sent for fecal occult blood stool to rule out any GI bleed PPI We will follow along on a daily basis with any additional recommendations Discussed with Dr. Lainez. Thank you for this patient referral, we will follow. The patient was seen and examined at bedside and all new and available data was reviewed in the patients chart. I agree with the above findings, impression and plan. (Patient seen earlier today. Signature stamp does not reflect patient encounter time.). - MD Nicole Story,[facility] MEAT MANAGER Jul 17, 2019 12:37
[2019-07-17] MEDS ORDERED: Fleet's Mineral Oil Enema RECTAL SCH (12:45)
[2019-07-17] MEDS ORDERED: Miralax 17gm pkt ORAL PRN (12:45)
[2019-07-17] MEDS ORDERED: Mineral Oil 30ml ud ORAL PRN (12:45)
--- NOTE | 2019-07-17 12:48 | Cardiology Report ---
APPROVED REPORT EKG Measurement Heart [id number] Sinus rhythm with premature supraventricular complexes Nonspecific ST and T wave abnormality Abnormal ECG
[2019-07-17] MEDS: Docusate 100mg cap ORAL SCH ×2 (13:00→17:16)
--- NOTE | 2019-07-17 15:15 | History and Physical Report ---
DATE OF ADMISSION: 07/16/2019 TIME SEEN: 11 a.m. CONSULTANTS: 1. Sterling Kaiser M.D. 2. Kobi Lainez M.D. 3. Dr. Frankel. 4. Jessica Lima M.D.. 5. . CHIEF COMPLAINT: Altered mental status. BRIEF HISTORY: This is an 89-year-old female from an assisted living presented to [facility] last night with the above-mentioned diagnosis, also slight abdominal pain, distention was diagnosed UTI and sepsis and admitted to medical floor. Currently, very sleepy in bed, not answering questions. REVIEW OF SYSTEMS: Unavailable. PAST MEDICAL HISTORY: Altered mental status it looks like. PAST SURGICAL HISTORY: Unknown. ALLERGIES: Penicillin. SOCIAL HISTORY: Unable to obtain secondary to the patient's condition. OBJECTIVE: GENERAL: Lethargic in bed, sleepy, refusing to answer questions. VITAL SIGNS: Temperature 97, pulse 102, respiratory rate 18, blood pressure 143/55. CARDIOVASCULAR: No murmurs. LUNGS: Distant and clear. ABDOMEN: Bowel sound positive. Nontender. Nondistended. EXTREMITIES: No cyanosis or edema. NEUROLOGIC: The patient slightly lethargic in bed, not talking much. LABORATORY AND DIAGNOSTIC DATA: White count 36, hemoglobin and hematocrit 7.7 and 24, platelets is 789. BMP shows sodium 146, potassium 3.0, chloride 111, BUN 20. Albumin 2.1. Urinalysis show 3+ leukocyte esterase. ASSESSMENT: 1. Altered mental status. 2. Abdominal pain. 3. Abdominal distention. 4. UTI. 5. Sepsis. 6. Malnutrition. 7. 8. Anemia. 9. Thrombocytosis. PLAN: 1. PT and dietary evaluation. 2. CBC and BMP in the morning. 3. Resume home medications. 4. Antibiotics per Infectious Disease. 5. We will continue to follow the patient. Allen Harris D.O. DR: Gordo JOB#: [id number] CC:
--- NOTE | 2019-07-17 15:47 | Consultation ---
History of Present Illness General Date patient seen: Jul 17, 2019 Chief Complaint: Altered Mental Status Referring physician: RADHA VITALE Reason for Consultation: Abdominal distention Present Illness HPI This is a 89-year-old female with multiple medical comorbidities who is a alf resident that presented to the emergency department [facility] for evaluation of altered mental status and was identified to have abdominal distention. Patient was admitted for further care and management. Abnormal labs. Surgery called to evaluate and assist with care. Patient seen, patient evaluated, chart reviewed. Patient is arousable but cannot provide review of systems or history. She does identify some discomfort on palpation of the abdomen. No nausea vomiting per report. Unsure of last bowel movement. Unsure flatus. On examination identified to have a prior G- tube site which is well-healed Allergies: Coded Allergies: PENICILLINS (Verified Allergy, Unknown, 07/17/19) tolerates Ceftriaxone Medication History Scheduled Ascorbic Acid* (Vitamin C*), Unknown Dose ORAL DAILY, (Reported) Aspirin* (Aspirin*), 81 MG ORAL DAILY, (Reported) Cholecalciferol (Vitamin D3) (Vitamin D3), 1,000 UNIT PO DAILY, (Reported) Citalopram Hydrobromide* (Celexa*), 20 MG ORAL DAILY, (Reported) Mu-Vits-Min Th/Lycopene/Lutein (Certavite Sr-Antioxidant Tab), 1 EACH PO DAILY, (Reported) Pantoprazole* (Pantoprazole*), 50 MG ORAL DAILY, (Reported) Pravastatin Sod* (Pravastatin Sod*), 40 MG ORAL BEDTIME, (Reported) Risperidone* (Risperdal*), 0.5 MG ORAL DAILY, (Reported) Scheduled PRN Simethicone* (Simethicone*), 125 MG ORAL Q8H PRN for GAS PAIN, (Reported) Miscellaneous Medications Budesonide/Formoterol Fumarate (Symbicort 160-4.5 Mcg Inhaler), 2 PUFF IH, ( Reported) Cranberry Extract (Cranberry), 500 MG PO, (Reported) Theophylline Anhydrous (Christiano-24), Unknown Dose PO, (Reported) Patient History Limited by: medical condition History Provided By: Medical Record, PMD Healthcare decision maker N Resuscitation status Do Not Resuscitate Advanced Directive on File Past Medical/Surgical History Past Medical/Surgical History: (1) Abdominal mass (2) Sepsis (3) UTI (urinary tract infection) (4) AMS (altered mental status) (5) Fecal impaction (6) Pelvic mass (7) Abdominal pain Review of Systems ROS Narrative Cannot obtain given patient's medical condition Physical Exam General Appearance: no apparent distress Lines, tubes and drains: peripheral HEENT: mucous membranes moist Neck: normal inspection Respiratory/Chest: normal breath sounds, no respiratory distress, no accessory muscle use Cardiovascular/Chest: normal rate Abdomen: soft, hypoactive bowel sounds, distended, mass, other - Prior G-tube site well-healed in the left upper abdomen Extremities: normal inspection Skin Exam: warm/dry Neurologic: alert, responsive Last 24 Hour Vital Signs Date Time Temp Pulse Resp B/P (MAP) Pulse Ox O2 Delivery O2 Flow Rate FiO2 07/17/19 13:25 99.1 100 20 117/64 (81) 96 07/17/19 12:00 100.1 110 17 161/84 (109) 95 07/17/19 09:00 Room Air 07/17/19 08:00 97.7 102 18 143/55 (84) 94 07/17/19 04:00 99.3 92 20 128/59 (82) 94 07/17/19 00:00 98.4 95 20 123/60 (81) 94 07/16/19 22:45 Room Air 07/16/19 21:35 98.2 80 16 119/78 100 Room Air 07/16/19 21:34 98.2 80 16 119/78 100 Room Air 07/16/19 20:40 98.2 95 20 130/59 (82) 97 07/16/19 19:55 98.5 86 20 135/45 100 Room Air 07/16/19 17:35 92 16 Room Air 07/16/19 17:35 99.6 92 16 118/52 96 Room Air 07/16/19 17:26 97.5 92 16 118/52 (74) 96 Room Air Intake and Output 07/16/19 07/17/19 19:00 07:00 Intake Total 500 ml 1175 ml Output Total 200 ml 500 ml Balance 300 ml 675 ml Intake IV Total 500 ml 1175 ml Output Urine Total 200 ml 500 ml Laboratory Tests Test 07/16/19 17:50 07/16/19 17:57 07/16/19 19:47 07/17/19 04:48 White Blood Count 47.7 K/UL (4.8-10.8) *H 36.5 K/UL (4.8-10.8) *H Red Blood Count 3.50 M/UL (4.20-5.40) L 2.88 M/UL (4.20-5.40) L Hemoglobin 9.7 G/DL (12.0-16.0) L 7.7 G/DL (12.0-16.0) L Hematocrit 29.1 % (37.0-47.0) L 24.7 % (37.0-47.0) L Mean Corpuscular Volume 83 FL (80-99) 86 FL (80-99) Mean Corpuscular Hemoglobin 27.6 PG (27.0-31.0) 26.6 PG (27.0-31.0) L Mean Corpuscular Hemoglobin Concent 33.3 G/DL (32.0-36.0) 31.0 G/DL (32.0-36.0) L Red Cell Distribution Width 12.9 % (11.6-14.8) 14.4 % (11.6-14.8) Platelet Count 836 K/UL (150-450) H 789 K/UL (150-450) H Mean Platelet Volume 4.7 FL (6.5-10.1) L 4.6 FL (6.5-10.1) L Neutrophils (%) (Auto) % (45.0-75.0) % (45.0-75.0) Lymphocytes (%) (Auto) % (20.0-45.0) % (20.0-45.0) Monocytes (%) (Auto) % (1.0-10.0) % (1.0-10.0) Eosinophils (%) (Auto) % (0.0-3.0) % (0.0-3.0) Basophils (%) (Auto) % (0.0-2.0) % (0.0-2.0) Differential Total Cells Counted 100 100 Neutrophils % (Manual) 90 % (45-75) H 90 % (45-75) H Lymphocytes % (Manual) 6 % (20-45) L 4 % (20-45) L Monocytes % (Manual) 3 % (1-10) 6 % (1-10) Eosinophils % (Manual) 0 % (0-3) 0 % (0-3) Basophils % (Manual) 0 % (0-2) 0 % (0-2) Band Neutrophils 1 % (0-8) 0 % (0-8) Platelet Estimate Increased H Increased H Platelet Morphology Normal Normal Polychromasia 1+ Sodium Level 146 MMOL/L (136-145) H 146 MMOL/L (136-145) H Potassium Level 4.0 MMOL/L (3.5-5.1) 3.0 MMOL/L (3.5-5.1) L Chloride Level 107 MMOL/L (98-107) 111 MMOL/L (98-107) H Carbon Dioxide Level 34 MMOL/L (21-32) H 32 MMOL/L (21-32) Anion Gap 6 mmol/L (5-15) 3 mmol/L (5-15) L Blood Urea Nitrogen 27 mg/dL (7-18) H 20 mg/dL (7-18) H Creatinine 0.8 MG/DL (0.55-1.30) 0.7 MG/DL (0.55-1.30) Estimat Glomerular Filtration Rate mL/min (>60) mL/min (>60) Glucose Level 151 MG/DL (74-106) H 105 MG/DL (74-106) Lactic Acid Level 3.10 mmol/L (0.4-2.0) H 3.10 mmol/L (0.66-2.22) H Calcium Level 9.4 MG/DL (8.5-10.1) 8.8 MG/DL (8.5-10.1) Total Bilirubin 0.5 MG/DL (0.2-1.0) Aspartate Amino Transf (AST/SGOT) 32 U/L (15-37) Alanine Aminotransferase (ALT/SGPT) 27 U/L (12-78) Alkaline Phosphatase 324 U/L (46-116) H Ammonia 13 umol/L (11-32) Total Protein 6.6 G/DL (6.4-8.2) Albumin 2.1 G/DL (3.4-5.0) L Globulin 4.5 g/dL Albumin/Globulin Ratio 0.5 (1.0-2.7) L Lipase 92 U/L (73-393) Urine Color Brown Urine Appearance Cloudy Urine pH 5 (4.5-8.0) Urine Specific Varney 1.015 (1.005-1.035) Urine Protein 3+ (NEGATIVE) H Urine Glucose (UA) Negative (NEGATIVE) Urine Ketones 1+ (NEGATIVE) H Urine Blood 3+ (NEGATIVE) H Urine Nitrite Positive (NEGATIVE) H Urine Bilirubin Negative (NEGATIVE) Urine Urobilinogen 1 MG/DL (0.0-1.0) H Urine Leukocyte Esterase 3+ (NEGATIVE) H Urine RBC 5-10 /HPF (0 - 2) H Urine WBC Tntc /HPF (0 - 2) H Urine Squamous Epithelial Cells Few /LPF (NONE/OCC) Urine Bacteria Many /HPF (NONE) H Hypochromasia 3+ Anisocytosis 1+ Test 07/17/19 06:50 Reticulocyte Count 1.6 % (0.5-2.0) Iron Level 9 ug/dL (50-175) L Total Iron Binding Capacity 115 ug/dL (250-450) L Percent Iron Saturation 8 % (15-50) L Unsaturated Iron Binding 106 ug/dL (112-346) L Ferritin 317 NG/ML (8-388) Vitamin B12 Level 1773 PG/ML (193-986) H Microbiology Date/Time Source Procedure Growth Status 07/16/19 20:25 Rectum Received Height (Feet): 5 Height (Inches): 6.00 Weight (Pounds): 158 Medications Current Medications Medications (Trade) Dose Ordered Sig/Irene Route PRN Reason Start Time Stop Time Status Last Admin Dose Admin Acetaminophen (Tylenol) 650 mg Q8H PRN ORAL Mild Pain/Temp > 100.5 07/17/19 05:15 08/16/19 05:14 Aspirin (ASA) 81 mg DAILY ORAL 07/17/19 09:00 08/16/19 08:59 07/17/19 09:28 Budesonide/ Formoterol Fumarate (Symbicort 160/ 4.5) 2 puff BIDRT INH 07/17/19 10:00 08/16/19 09:59 07/17/19 09:33 Ceftriaxone Sodium 1 gm/ Dextrose 55 ml @ 110 mls/hr Q24H IVPB 07/17/19 19:00 07/24/19 18:59 Citalopram Hydrobromide (celeXA) 20 mg DAILY ORAL 07/17/19 09:00 08/16/19 08:59 07/17/19 09:28 Dextrose/Sodium Chloride 1,000 ml @ 60 mls/hr [id number] IV 07/17/19 00:15 08/16/19 00:14 07/17/19 00:33 Diphenhydramine HCl (Benadryl) 25 mg Q12H PRN ORAL Itching 07/17/19 05:15 08/16/19 05:14 Docusate Sodium (Colace) 100 mg THREE TIMES A DAY ORAL 07/17/19 13:00 08/16/19 12:59 Enoxaparin Sodium (Lovenox) 40 mg DAILY SUBQ 07/17/19 09:00 08/16/19 08:59 07/17/19 09:29 Iohexol (OMNIPAQUE-300 100ml) 100 ml NOW PRN INJ Radiology Procedure 07/16/19 18:00 07/18/19 17:46 Iron Sucrose 100 mg/Sodium Chloride 60 ml @ 240 mls/hr BEDTIME IV 07/17/19 21:00 07/19/19 21:14 Mineral Oil (Mineral Oil) 30 ml DAILYPRN PRN ORAL Constipation 07/17/19 12:45 08/16/19 12:44 Pantoprazole (Protonix) 40 mg DAILY@0630 ORAL 07/17/19 06:30 08/16/19 06:29 07/17/19 06:24 Polyethylene Glycol (Miralax) 17 gm DAILYPRN PRN ORAL Constipation 07/17/19 12:45 08/16/19 12:44 Pravastatin Sodium (Pravachol) 40 mg BEDTIME ORAL 07/17/19 21:00 08/16/19 20:59 Risperidone (RisperDAL) 0.5 mg DAILY ORAL 07/17/19 09:00 08/16/19 08:59 07/17/19 09:28 Simethicone (Mylicon) 125 mg Q8H PRN ORAL GAS PAIN 07/17/19 00:15 08/16/19 00:14 Zolpidem Tartrate (Ambien) 5 mg HSPRN PRN ORAL Insomnia 07/17/19 05:15 07/24/19 05:14 Assessment/Plan Problem List: (1) Abdominal mass Assessment & Plan: Findings: There is a massive mostly cystic with slight solid component septated mass occupying much of the pelvis and mid to lower abdomen. This measures 33 cm transverse by 14 cm AP by 24 cm craniocaudad. There is an inferior vena cava filter which appears compressed by the mass. It demonstrates a broken off strut that extends into the left common iliac vein. Inferior vena cava appears to be patent. The rectum is distended by feces, measures up to 9.5 cm in diameter. There is no evidence of colonic diverticulosis or diverticulitis. The appendix is not definitely visualized, but no findings to suggest acute appendicitis are evident. No free or loculated intraperitoneal gas or fluid. No small bowel distention. The liver, gallbladder, bile ducts, pancreas, spleen are all unremarkable. The the right adrenal is unremarkable. The left adrenal demonstrates a 2 cm mass which demonstrates nonspecific soft tissue attenuation. Right kidney demonstrates a 7 mm diameter lower pole calyceal calculus. Other smaller calculi are seen in the renal collecting systems bilaterally. There is a left renal cyst. There is mild bilateral hydronephrosis. The bladder is empty, contains a suprapubic catheter. There is bilateral hip and right posterior acetabular surgical hardware. This throws off streak artifact which obscures much of the lower pelvis. The included lung bases demonstrate interstitial septal thickening and groundglass opacity. The heart is enlarged. The bones demonstrate a compression fracture deformity of the L2 vertebral body. There are also compression fracture deformities T7-T8, and large Schmorl's nodes at T11 and 12. 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 Bilateral nonobstructive renal calculi Left renal cyst Postsurgical changes of both hips and the right pelvis Basilar pulmonary interstitial septal thickening and groundglass opacity, may indicate pulmonary edema Mild cardiomegaly Multiple vertebral compression fractures, age indeterminate. Consider MRI for further evaluation if considered clinically relevant ICD Codes: R19.00 - Intra-abdominal and pelvic swelling, mass and lump, unspecified site SNOMED: 709547199 Qualifiers: Qualified Codes: R19.00 - Intra-abdominal and pelvic swelling, mass and lump , unspecified site (2) Abdominal pain Assessment & Plan: Patient presented with abdominal distention and discomfort. No nausea vomiting fever chills. Significant leukocytosis. Abnormal labs. CT identified as above with large cystic mass ovarian origin. UTI Okay for diet from surgical standpoint IV fluids IV antibiotics Labs ordered A.m. KUB We will follow with serial abdominal examinations No acute surgical mention recommend at this time Thank you for let me participate in patient's care ICD Codes: R10.9 - Unspecified abdominal pain SNOMED: 11533566 (3) Decubitus skin ulcer Assessment & Plan: Pt presented on admission with multiple pressure injuries. DTPI noted to L buttocks. Base of wound is maroon and indurated with marginal erythema(L)(L)7cm x (W)4.3cm. Non-blanching erythema without induration or fluctuance noted to R buttocks (L) 8cm x (W)6.5cm.. R heel is boggy with non-blanching erythema. L heel is boggy with non-blanching erythema. Small dry callus noted to distal/lateral L foot .No other skin concerns noted. Tx.Plan: Apply Moisture Barrier Paste to R and L buttocks. Cover affected areas with Optifoam drsgs. Change every 3 days and prn. Apply Cavilon Skin Barrier to both heels. Cover each heel with Optifoam drsg. Change every 7 days and prn. Reposition at least every 2 hours or as tolerated. Off-load heels with pillow. Nutritional optimization when ready Thank you ICD Codes: L89.90 - Pressure ulcer of unspecified site, unspecified stage SNOMED: [id number] Alon Denise Jul 17, 2019 15:47
[2019-07-17] MEDS: cefTRIAXone 1 GM in D5W 55 ML IVPB SCH (18:19)
[2019-07-17] MEDS ORDERED: Iron Sucrose 100 MG in NS 55 ML IV SCH (21:00)
[2019-07-18] VITALS: BP 128/67
[2019-07-18 04:00] VITALS: BP 110/58
[2019-07-18 07:13] LABS: BASOPHILS % (AUTO) 0.7 % (0.0-2.0); EOSINOPHILS % (AUTO) 3.9 % (0.0-3.0); HEMATOCRIT 29.8 % (37.0-47.0); LYMPHOCYTES % (AUTO) 20.8 % (20.0-45.0); MEAN CORPUSCULAR VOLUME 85 FL (80-99); MONOCYTES % (AUTO) 10.5 % (1.0-10.0); NEUTROPHILS % (AUTO) 64.1 % (45.0-75.0); PLATELET COUNT 233 K/UL (150-450); RED BLOOD COUNT 3.49 M/UL (4.20-5.40); RED CELL DISTRIBUTION WIDTH 13.4 % (11.6-14.8); WHITE BLOOD COUNT 10.5 K/UL (4.8-10.8)
[2019-07-18 07:24] LABS: ALANINE AMINOTRANSFERASE 18 U/L (12-78); ALBUMIN 3.3 G/DL (3.4-5.0); ALBUMIN/GLOBULIN RATIO 0.8 (1.0-2.7); ALKALINE PHOSPHATASE 78 U/L (46-116); ANION GAP 11 mmol/L (5-15); ASPARTATE AMINO TRANSFERASE 18 U/L (15-37); BILIRUBIN,TOTAL 0.4 MG/DL (0.2-1.0); BLOOD UREA NITROGEN 39 mg/dL (7-18); CALCIUM 8.6 MG/DL (8.5-10.1); CARBON DIOXIDE 27 MMOL/L (21-32); CHLORIDE 102 MMOL/L (98-107); POTASSIUM 3.3 MMOL/L (3.5-5.1); SODIUM 140 MMOL/L (136-145)
[2019-07-18 08:00] VITALS: BP 149/69
[2019-07-18] MEDS: Citalopram Hydrobromide 10mg Tab ORAL SCH (09:33)
[2019-07-18] MEDS: Docusate 100mg cap ORAL SCH ×3 (09:34→18:47)
[2019-07-18] MEDS: Aspirin Baby 81mg ORAL SCH (09:34)
[2019-07-18] MEDS: Enoxaparin 40mg Inj SUBQ SCH (09:35)
[2019-07-18] MEDS: D5 1/2NS 1,000 ML IV SCH (09:43)
--- NOTE | 2019-07-18 09:44 | General Progress Note ---
Assessment/Plan Problem List: (1) Abdominal mass ICD Codes: R19.00 - Intra-abdominal and pelvic swelling, mass and lump, unspecified site SNOMED: 099546510 Qualifiers: Qualified Codes: R19.00 - Intra-abdominal and pelvic swelling, mass and lump , unspecified site (2) Sepsis ICD Codes: A41.9 - Sepsis, unspecified organism SNOMED: [id number] Qualifiers: Qualified Codes: A41.9 - Sepsis, unspecified organism (3) UTI (urinary tract infection) ICD Codes: N39.0 - Urinary tract infection, site not specified SNOMED: 64398341 Qualifiers: Qualified Codes: N39.0 - Urinary tract infection, site not specified (4) Fecal impaction ICD Codes: K56.41 - Fecal impaction SNOMED: 14446305 (5) Pelvic mass ICD Codes: R19.00 - Intra-abdominal and pelvic swelling, mass and lump, unspecified site SNOMED: 29148620 (6) Abdominal pain ICD Codes: R10.9 - Unspecified abdominal pain SNOMED: 91072175 (7) AMS (altered mental status) ICD Codes: R41.82 - Altered mental status, unspecified SNOMED: 672193393 Qualifiers: Qualified Codes: R41.82 - Altered mental status, unspecified (8) Decubitus skin ulcer ICD Codes: L89.90 - Pressure ulcer of unspecified site, unspecified stage SNOMED: 232556755 Status: unchanged Assessment/Plan: pt diet wound care abx gi f/u cbc bmp am Subjective Constitutional: Reports: weakness Allergies: Coded Allergies: PENICILLINS (Verified Allergy, Unknown, 07/17/19) tolerates Ceftriaxone All Systems: reviewed and negative except above Subjective sleepy calm Objective Last 24 Hour Vital Signs Date Time Temp Pulse Resp B/P (MAP) Pulse Ox O2 Delivery O2 Flow Rate FiO2 07/18/19 08:00 97.6 89 19 149/69 (95) 100 07/18/19 04:00 98.2 90 16 110/58 (75) 96 07/18/19 00:00 97.8 81 19 128/67 (87) 96 07/17/19 21:00 Room Air 07/17/19 20:09 98.2 07/17/19 20:00 100.0 107 19 141/81 (101) 96 07/17/19 16:20 96 07/17/19 16:00 99.0 96 23 129/62 (84) 93 07/17/19 13:25 99.1 100 20 117/64 (81) 96 07/17/19 12:00 100.1 110 17 161/84 (109) 95 Intake and Output 07/17/19 07/18/19 19:00 07:00 Intake Total 660 ml 2040 ml Output Total 350 ml 900 ml Balance 310 ml 1140 ml Intake Oral 600 ml 1200 ml IV Total 60 ml 540 ml Blood Product 300 ml Output Urine Total 350 ml 900 ml Laboratory Tests 07/18/19 06:45: White Blood Count 10.5#, Red Blood Count 3.49L, Hemoglobin 10.0L, Hematocrit 29.8L, Mean Corpuscular Volume 85, Mean Corpuscular Hemoglobin 28.6, Mean Corpuscular Hemoglobin Concent 33.5, Red Cell Distribution Width 13.4, Platelet Count 233#, Mean Platelet Volume 5.9L, Neutrophils (%) (Auto) 64.1, Lymphocytes (%) (Auto) 20.8, Monocytes (%) (Auto) 10.5H, Eosinophils (%) (Auto) 3.9H, Basophils (%) (Auto) 0.7, Sodium Level 140, Potassium Level 3.3L, Chloride Level 102, Carbon Dioxide Level 27, Anion Gap 11, Blood Urea Nitrogen 39H, Creatinine 8.0#H, Estimat Glomerular Filtration Rate , Glucose Level 90, Calcium Level 8.6, Total Bilirubin 0.4, Aspartate Amino Transf (AST/SGOT) 18, Alanine Aminotransferase (ALT/SGPT) 18, Alkaline Phosphatase 78, Total Protein 7.3, Albumin 3.3L, Globulin 4.0, Albumin/Globulin Ratio 0.8L Height (Feet): 5 Height (Inches): 6.00 Weight (Pounds): 158 General Appearance: lethargic EENT: normal ENT inspection Neck: normal alignment Cardiovascular: normal peripheral pulses, normal rate, regular rhythm Respiratory/Chest: chest wall non-tender, lungs clear, normal breath sounds Abdomen: normal bowel sounds, non tender, soft Extremities: normal inspection Edema: no edema noted Arm (L), no edema noted Arm (R), no edema noted Leg (L), no edema noted Leg (R), no edema noted Pedal (L), no edema noted Pedal (R), no edema noted Generalized Neurologic: motor weakness Skin: normal pigmentation, warm/dry Allen Harris DO Jul 18, 2019 09:44
--- NOTE | 2019-07-18 11:28 | Hematology/Onc Progress Note ---
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 --> apparently has had eval in the past --> imaging has been reviewed --> is on dnr/comfort care for this # Leukocytosis is related to underlying uti with septic shock --> wbc trend 48-->37->11 --> on abx as per id --> smear has been reviewed --> lactic acid remains high --> ivf have been started # Anemia of chronic disease --> panel ordered --> transfuse if hgb drops further, hgb 7.7-->8-->10 # AMS (altered mental status) --> likely related to underlying uti --> on abx as per id # UTI (urinary tract infection) --> lactic > 3, UA + bacteria # Abdominal mass # Sepsis # Dvt ppx scds Appreciate consultation and dw RN Subjective Constitutional: Denies: no symptoms, chills, fever, malaise, weakness, other HEENT: Denies: no symptoms, eye pain, blurred vision, tearing, double vision, ear pain, ear discharge, nose pain, nose congestion, throat pain, throat swelling, mouth pain, mouth swelling, other Cardiovascular: Denies: no symptoms, chest pain, edema, irregular heart rate, lightheadedness, palpitations, syncope, other Respiratory: Denies: no symptoms, cough, shortness of breath, SOB with excertion, SOB at rest, sputum, wheezing, other Gastrointestinal/Abdominal: Denies: no symptoms, abdomen distended, abdominal pain, black stools, tarry stools, blood in stool, constipated, diarrhea, difficulty swallowing, nausea, poor appetite, poor fluid intake, rectal bleeding , vomiting, other Genitourinary: Denies: no symptoms, burning, discharge, frequency, flank pain, hematuria, incontinence, pain, urgency, other Neurologic/Psychiatric: Denies: no symptoms, anxiety, depressed, emotional problems, headache, numbness, paresthesia, pre-existing deficit, seizure, tingling, tremors, weakness, other Endocrine: Denies: no symptoms, excessive sweating, flushing, intolerance to cold, intolerance to heat, increased hunger, increased thirst, increased urine, unexplained weight gain, unexplained weight loss, other Allergies: Coded Allergies: PENICILLINS (Verified Allergy, Unknown, 07/17/19) tolerates Ceftriaxone Subjective 07/18: no events, no bleeding, no f/c, no night sweats Objective Objective Current Medications Medications (Trade) Dose Ordered Sig/Irene Route PRN Reason Start Time Stop Time Status Last Admin Dose Admin Acetaminophen (Tylenol) 650 mg Q8H PRN ORAL Mild Pain/Temp > 100.5 07/17/19 05:15 08/16/19 05:14 07/17/19 19:39 Aspirin (ASA) 81 mg DAILY ORAL 07/17/19 09:00 08/16/19 08:59 07/18/19 09:34 Budesonide/ Formoterol Fumarate (Symbicort 160/ 4.5) 2 puff BIDRT INH 07/17/19 10:00 08/16/19 09:59 07/18/19 07:58 Ceftriaxone Sodium 1 gm/ Dextrose 55 ml @ 110 mls/hr Q24H IVPB 07/17/19 19:00 07/24/19 18:59 07/17/19 18:19 Citalopram Hydrobromide (celeXA) 20 mg DAILY ORAL 07/17/19 09:00 08/16/19 08:59 07/18/19 09:33 Dextrose/Sodium Chloride 1,000 ml @ 60 mls/hr [id number] IV 07/17/19 00:15 08/16/19 00:14 07/18/19 09:43 Diphenhydramine HCl (Benadryl) 25 mg Q12H PRN ORAL Itching 07/17/19 05:15 08/16/19 05:14 Docusate Sodium (Colace) 100 mg THREE TIMES A DAY ORAL 07/17/19 13:00 08/16/19 12:59 07/18/19 09:34 Enoxaparin Sodium (Lovenox) 40 mg DAILY SUBQ 07/17/19 09:00 08/16/19 08:59 07/18/19 09:35 Iohexol (OMNIPAQUE-300 100ml) 100 ml NOW PRN INJ Radiology Procedure 07/16/19 18:00 07/18/19 17:46 Iron Sucrose 100 mg/Sodium Chloride 60 ml @ 240 mls/hr BEDTIME IV 07/18/19 21:00 07/20/19 21:14 Mineral Oil (Mineral Oil) 30 ml DAILYPRN PRN ORAL Constipation 07/17/19 12:45 08/16/19 12:44 Ondansetron HCl (Zofran) 4 mg Q6H PRN IVP Nausea & Vomiting 07/17/19 20:30 08/16/19 18:29 Pantoprazole (Protonix) 40 mg DAILY@0630 ORAL 07/17/19 06:30 08/16/19 06:29 07/18/19 05:56 Polyethylene Glycol (Miralax) 17 gm DAILYPRN PRN ORAL Constipation 07/17/19 12:45 08/16/19 12:44 Pravastatin Sodium (Pravachol) 40 mg BEDTIME ORAL 07/17/19 21:00 08/16/19 20:59 07/17/19 20:26 Prochlorperazine (Compazine) 5 mg Q8H PRN IVP Nausea & Vomiting 07/17/19 20:30 08/16/19 20:29 Risperidone (RisperDAL) 0.5 mg DAILY ORAL 07/17/19 09:00 08/16/19 08:59 07/18/19 09:34 Simethicone (Mylicon) 125 mg Q8H PRN ORAL GAS PAIN 07/17/19 00:15 08/16/19 00:14 Zolpidem Tartrate (Ambien) 5 mg HSPRN PRN ORAL Insomnia 07/17/19 05:15 07/24/19 05:14 Last 24 Hour Vital Signs Date Time Temp Pulse Resp B/P (MAP) Pulse Ox O2 Delivery O2 Flow Rate FiO2 07/18/19 08:00 97.6 89 19 149/69 (95) 100 07/18/19 04:00 98.2 90 16 110/58 (75) 96 07/18/19 00:00 97.8 81 19 128/67 (87) 96 07/17/19 21:00 Room Air 07/17/19 20:09 98.2 07/17/19 20:00 100.0 107 19 141/81 (101) 96 07/17/19 16:20 96 07/17/19 16:00 99.0 96 23 129/62 (84) 93 07/17/19 13:25 99.1 100 20 117/64 (81) 96 07/17/19 12:00 100.1 110 17 161/84 (109) 95 07/17/19 09:00 Room Air 07/17/19 08:00 97.7 102 18 143/55 (84) 94 07/17/19 04:00 99.3 92 20 128/59 (82) 94 07/17/19 00:00 98.4 95 20 123/60 (81) 94 07/16/19 22:45 Room Air 07/16/19 21:35 98.2 80 16 119/78 100 Room Air 07/16/19 21:34 98.2 80 16 119/78 100 Room Air 07/16/19 20:40 98.2 95 20 130/59 (82) 97 07/16/19 19:55 98.5 86 20 135/45 100 Room Air 07/16/19 17:35 92 16 Room Air 07/16/19 17:35 99.6 92 16 118/52 96 Room Air 07/16/19 17:26 97.5 92 16 118/52 (74) 96 Room Air Intake and Output 07/17/19 07/18/19 19:00 07:00 Intake Total 660 ml 2040 ml Output Total 350 ml 900 ml Balance 310 ml 1140 ml Intake Oral 600 ml 1200 ml IV Total 60 ml 540 ml Blood Product 300 ml Output Urine Total 350 ml 900 ml Labs Test 07/16/19 17:50 07/16/19 17:57 07/16/19 19:47 07/17/19 04:48 White Blood Count 47.7 K/UL (4.8-10.8) 36.5 K/UL (4.8-10.8) Red Blood Count 3.50 M/UL (4.20-5.40) 2.88 M/UL (4.20-5.40) Hemoglobin 9.7 G/DL (12.0-16.0) 7.7 G/DL (12.0-16.0) Hematocrit 29.1 % (37.0-47.0) 24.7 % (37.0-47.0) Mean Corpuscular Volume 83 FL (80-99) 86 FL (80-99) Mean Corpuscular Hemoglobin 27.6 PG (27.0-31.0) 26.6 PG (27.0-31.0) Mean Corpuscular Hemoglobin Concent 33.3 G/DL (32.0-36.0) 31.0 G/DL (32.0-36.0) Red Cell Distribution Width 12.9 % (11.6-14.8) 14.4 % (11.6-14.8) Platelet Count 836 K/UL (150-450) 789 K/UL (150-450) Mean Platelet Volume 4.7 FL (6.5-10.1) 4.6 FL (6.5-10.1) Neutrophils (%) (Auto) % (45.0-75.0) % (45.0-75.0) Lymphocytes (%) (Auto) % (20.0-45.0) % (20.0-45.0) Monocytes (%) (Auto) % (1.0-10.0) % (1.0-10.0) Eosinophils (%) (Auto) % (0.0-3.0) % (0.0-3.0) Basophils (%) (Auto) % (0.0-2.0) % (0.0-2.0) Differential Total Cells Counted 100 100 Neutrophils % (Manual) 90 % (45-75) 90 % (45-75) Lymphocytes % (Manual) 6 % (20-45) 4 % (20-45) Monocytes % (Manual) 3 % (1-10) 6 % (1-10) Eosinophils % (Manual) 0 % (0-3) 0 % (0-3) Basophils % (Manual) 0 % (0-2) 0 % (0-2) Band Neutrophils 1 % (0-8) 0 % (0-8) Platelet Estimate Increased Increased Platelet Morphology Normal Normal Polychromasia 1+ Sodium Level 146 MMOL/L (136-145) 146 MMOL/L (136-145) Potassium Level 4.0 MMOL/L (3.5-5.1) 3.0 MMOL/L (3.5-5.1) Chloride Level 107 MMOL/L (98-107) 111 MMOL/L (98-107) Carbon Dioxide Level 34 MMOL/L (21-32) 32 MMOL/L (21-32) Anion Gap 6 mmol/L (5-15) 3 mmol/L (5-15) Blood Urea Nitrogen 27 mg/dL (7-18) 20 mg/dL (7-18) Creatinine 0.8 MG/DL (0.55-1.30) 0.7 MG/DL (0.55-1.30) Estimat Glomerular Filtration Rate mL/min (>60) mL/min (>60) Glucose Level 151 MG/DL (74-106) 105 MG/DL (74-106) Lactic Acid Level 3.10 mmol/L (0.4-2.0) 3.10 mmol/L (0.66-2.22) Calcium Level 9.4 MG/DL (8.5-10.1) 8.8 MG/DL (8.5-10.1) Total Bilirubin 0.5 MG/DL (0.2-1.0) Aspartate Amino Transf (AST/SGOT) 32 U/L (15-37) Alanine Aminotransferase (ALT/SGPT) 27 U/L (12-78) Alkaline Phosphatase 324 U/L (46-116) Ammonia 13 umol/L (11-32) Total Protein 6.6 G/DL (6.4-8.2) Albumin 2.1 G/DL (3.4-5.0) Globulin 4.5 g/dL Albumin/Globulin Ratio 0.5 (1.0-2.7) Lipase 92 U/L (73-393) Urine Color Brown Urine Appearance Cloudy Urine pH 5 (4.5-8.0) Urine Specific [place] 1.015 (1.005-1.035) Urine Protein 3+ (NEGATIVE) Urine Glucose (UA) Negative (NEGATIVE) Urine Ketones 1+ (NEGATIVE) Urine Blood 3+ (NEGATIVE) Urine Nitrite Positive (NEGATIVE) Urine Bilirubin Negative (NEGATIVE) Urine Urobilinogen 1 MG/DL (0.0-1.0) Urine Leukocyte Esterase 3+ (NEGATIVE) Urine RBC 5-10 /HPF (0 - 2) Urine WBC Tntc /HPF (0 - 2) Urine Squamous Epithelial Cells Few /LPF (NONE/OCC) Urine Bacteria Many /HPF (NONE) Hypochromasia 3+ Anisocytosis 1+ Test 07/17/19 06:50 07/18/19 06:45 Reticulocyte Count 1.6 % (0.5-2.0) Iron Level 9 ug/dL (50-175) Total Iron Binding Capacity 115 ug/dL (250-450) Percent Iron Saturation 8 % (15-50) Unsaturated Iron Binding 106 ug/dL (112-346) Ferritin 317 NG/ML (8-388) Vitamin B12 Level 1773 PG/ML (193-986) White Blood Count 10.5 K/UL (4.8-10.8) Red Blood Count 3.49 M/UL (4.20-5.40) Hemoglobin 10.0 G/DL (12.0-16.0) Hematocrit 29.8 % (37.0-47.0) Mean Corpuscular Volume 85 FL (80-99) Mean Corpuscular Hemoglobin 28.6 PG (27.0-31.0) Mean Corpuscular Hemoglobin Concent 33.5 G/DL (32.0-36.0) Red Cell Distribution Width 13.4 % (11.6-14.8) Platelet Count 233 K/UL (150-450) Mean Platelet Volume 5.9 FL (6.5-10.1) Neutrophils (%) (Auto) 64.1 % (45.0-75.0) Lymphocytes (%) (Auto) 20.8 % (20.0-45.0) Monocytes (%) (Auto) 10.5 % (1.0-10.0) Eosinophils (%) (Auto) 3.9 % (0.0-3.0) Basophils (%) (Auto) 0.7 % (0.0-2.0) Sodium Level 140 MMOL/L (136-145) Potassium Level 3.3 MMOL/L (3.5-5.1) Chloride Level 102 MMOL/L (98-107) Carbon Dioxide Level 27 MMOL/L (21-32) Anion Gap 11 mmol/L (5-15) Blood Urea Nitrogen 39 mg/dL (7-18) Creatinine 8.0 MG/DL (0.55-1.30) Estimat Glomerular Filtration Rate mL/min (>60) Glucose Level 90 MG/DL (74-106) Calcium Level 8.6 MG/DL (8.5-10.1) Total Bilirubin 0.4 MG/DL (0.2-1.0) Aspartate Amino Transf (AST/SGOT) 18 U/L (15-37) Alanine Aminotransferase (ALT/SGPT) 18 U/L (12-78) Alkaline Phosphatase 78 U/L (46-116) Total Protein 7.3 G/DL (6.4-8.2) Albumin 3.3 G/DL (3.4-5.0) Globulin 4.0 g/dL Albumin/Globulin Ratio 0.8 (1.0-2.7) Height (Feet): 5 Height (Inches): 6.00 Weight (Pounds): 158 Objective PE General: cachetic, lethargic, sleepy difficult to wake up Respiratory: ctab, no cwr Cardiovascular: regular rate, rhythm, no edema Gastrointestinal: soft, nt, nd Musculoskeletal: back normal Neurologic: other - nonvebral Lymphatic: normal inspection Gonzalo Frankel MD Jul 18, 2019 11:28
--- NOTE | 2019-07-18 11:56 | Diagnostic Imaging Report ---
Indication: Abdominal pain Technique: One view of the chest Comparison: none Findings: Central abdominal hyperdensity presumably represents massive cystic mass described on recent CT scan. Bowel gas pattern is unremarkable, with moderate gas is seen in the ascending and transverse colon, moderate stool in the right-sided colon, no small bowel distention.. Surgical hardware is seen in the bilateral hips and femurs. Surgical hardware is also seen in the right side of the pelvis. There is an inferior vena cava filter. Impression: Central abdominal hyperdensity, consistent with large cystic mass described on recent CT scan No definite acute process Other findings as noted
[2019-07-18 12:00] VITALS: BP 139/62
--- NOTE | 2019-07-18 12:35 | Infectious Diseases Prog Note ---
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 Inferior vena cava filter, compressed by the mass and demonstrating a broken off strut. Evidence of rectal fecal impaction. 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 Bilateral nonobstructive renal calculi. Left renal cyst. Postsurgical changes of both hips and the right pelvis. Basilar pulmonary interstitial septal thickening and groundglass opacity, may indicate pulmonary edema. Mild cardiomegaly. Multiple vertebral compression fractures, age indeterminate. COPD GERD PVD Dementia Plan: -Continue empiric Ceftriaxone #3 pending urine culture -if HD unstable, switch to Meropenem -f/u cx -Monitor CBC/CMP, temperatures -Repeat STAT BMP -REnal US and Renal eval Thank you for this consultation. Will continue to follow along with you. Discussed with RN Subjective Allergies: Coded Allergies: PENICILLINS (Verified Allergy, Unknown, 07/17/19) tolerates Ceftriaxone Subjective afebrile leukocytosis resolved Bcx NTD Cr jumped from 0.7 to 8.0 Objective Vital Signs Last 24 Hour Vital Signs Date Time Temp Pulse Resp B/P (MAP) Pulse Ox O2 Delivery O2 Flow Rate FiO2 07/18/19 09:00 Room Air 07/18/19 08:00 97.6 89 19 149/69 (95) 100 07/18/19 04:00 98.2 90 16 110/58 (75) 96 07/18/19 00:00 97.8 81 19 128/67 (87) 96 07/17/19 21:00 Room Air 07/17/19 20:09 98.2 07/17/19 20:00 100.0 107 19 141/81 (101) 96 07/17/19 16:20 96 07/17/19 16:00 99.0 96 23 129/62 (84) 93 07/17/19 13:25 99.1 100 20 117/64 (81) 96 Height (Feet): 5 Height (Inches): 6.00 Weight (Pounds): 158 Objective General Appearance: cachetic, lethargic Head: normocephalic Eyes: bilateral eye normal inspection, bilateral eye PERRL ENT: normal ENT inspection Neck: normal inspection Respiratory: chest non-tender, lungs clear, normal breath sounds, speaking full sentences Cardiovascular #1: regular rate, rhythm, no edema Gastrointestinal: normal bowel sounds, non tender, soft, no guarding, no rebound, distended Neurologic: other - nonvebral Skin: other - see nursing skin notes Microbiology Date/Time Source Procedure Growth Status 07/16/19 17:50 Blood Blood Culture - Preliminary NO GROWTH AFTER 24 HOURS Resulted 07/16/19 17:45 Blood Blood Culture - Preliminary NO GROWTH AFTER 24 HOURS Resulted 07/16/19 20:25 Rectum Received Laboratory Tests Test 07/18/19 06:45 White Blood Count 10.5 K/UL (4.8-10.8) # Red Blood Count 3.49 M/UL (4.20-5.40) L Hemoglobin 10.0 G/DL (12.0-16.0) L Hematocrit 29.8 % (37.0-47.0) L Mean Corpuscular Volume 85 FL (80-99) Mean Corpuscular Hemoglobin 28.6 PG (27.0-31.0) Mean Corpuscular Hemoglobin Concent 33.5 G/DL (32.0-36.0) Red Cell Distribution Width 13.4 % (11.6-14.8) Platelet Count 233 K/UL (150-450) # Mean Platelet Volume 5.9 FL (6.5-10.1) L Neutrophils (%) (Auto) 64.1 % (45.0-75.0) Lymphocytes (%) (Auto) 20.8 % (20.0-45.0) Monocytes (%) (Auto) 10.5 % (1.0-10.0) H Eosinophils (%) (Auto) 3.9 % (0.0-3.0) H Basophils (%) (Auto) 0.7 % (0.0-2.0) Sodium Level 140 MMOL/L (136-145) Potassium Level 3.3 MMOL/L (3.5-5.1) L Chloride Level 102 MMOL/L (98-107) Carbon Dioxide Level 27 MMOL/L (21-32) Anion Gap 11 mmol/L (5-15) Blood Urea Nitrogen 39 mg/dL (7-18) H Creatinine 8.0 MG/DL (0.55-1.30) #H Estimat Glomerular Filtration Rate mL/min (>60) Glucose Level 90 MG/DL (74-106) Calcium Level 8.6 MG/DL (8.5-10.1) Total Bilirubin 0.4 MG/DL (0.2-1.0) Aspartate Amino Transf (AST/SGOT) 18 U/L (15-37) Alanine Aminotransferase (ALT/SGPT) 18 U/L (12-78) Alkaline Phosphatase 78 U/L (46-116) Total Protein 7.3 G/DL (6.4-8.2) Albumin 3.3 G/DL (3.4-5.0) L Globulin 4.0 g/dL Albumin/Globulin Ratio 0.8 (1.0-2.7) L Current Medications Medications (Trade) Dose Ordered Sig/Irene Route PRN Reason Start Time Stop Time Status Last Admin Dose Admin Acetaminophen (Tylenol) 650 mg Q8H PRN ORAL Mild Pain/Temp > 100.5 07/17/19 05:15 08/16/19 05:14 07/17/19 19:39 Aspirin (ASA) 81 mg DAILY ORAL 07/17/19 09:00 08/16/19 08:59 07/18/19 09:34 Budesonide/ Formoterol Fumarate (Symbicort 160/ 4.5) 2 puff BIDRT INH 07/17/19 10:00 08/16/19 09:59 07/18/19 07:58 Ceftriaxone Sodium 1 gm/ Dextrose 55 ml @ 110 mls/hr Q24H IVPB 07/17/19 19:00 07/24/19 18:59 07/17/19 18:19 Citalopram Hydrobromide (celeXA) 20 mg DAILY ORAL 07/17/19 09:00 08/16/19 08:59 07/18/19 09:33 Dextrose/Sodium Chloride 1,000 ml @ 60 mls/hr [id number] IV 07/17/19 00:15 08/16/19 00:14 07/18/19 09:43 Diphenhydramine HCl (Benadryl) 25 mg Q12H PRN ORAL Itching 07/17/19 05:15 08/16/19 05:14 Docusate Sodium (Colace) 100 mg THREE TIMES A DAY ORAL 07/17/19 13:00 08/16/19 12:59 07/18/19 09:34 Enoxaparin Sodium (Lovenox) 40 mg DAILY SUBQ 07/17/19 09:00 08/16/19 08:59 07/18/19 09:35 Iohexol (OMNIPAQUE-300 100ml) 100 ml NOW PRN INJ Radiology Procedure 07/16/19 18:00 07/18/19 17:46 Iron Sucrose 100 mg/Sodium Chloride 60 ml @ 240 mls/hr BEDTIME IV 07/18/19 21:00 07/20/19 21:14 Mineral Oil (Mineral Oil) 30 ml DAILYPRN PRN ORAL Constipation 07/17/19 12:45 08/16/19 12:44 Ondansetron HCl (Zofran) 4 mg Q6H PRN IVP Nausea & Vomiting 07/17/19 20:30 08/16/19 18:29 Pantoprazole (Protonix) 40 mg DAILY@0630 ORAL 07/17/19 06:30 08/16/19 06:29 07/18/19 05:56 Polyethylene Glycol (Miralax) 17 gm DAILYPRN PRN ORAL Constipation 07/17/19 12:45 08/16/19 12:44 Pravastatin Sodium (Pravachol) 40 mg BEDTIME ORAL 07/17/19 21:00 08/16/19 20:59 07/17/19 20:26 Prochlorperazine (Compazine) 5 mg Q8H PRN IVP Nausea & Vomiting 07/17/19 20:30 08/16/19 20:29 Risperidone (RisperDAL) 0.5 mg DAILY ORAL 07/17/19 09:00 08/16/19 08:59 07/18/19 09:34 Simethicone (Mylicon) 125 mg Q8H PRN ORAL GAS PAIN 07/17/19 00:15 08/16/19 00:14 Zolpidem Tartrate (Ambien) 5 mg HSPRN PRN ORAL Insomnia 07/17/19 05:15 07/24/19 05:14 Shameka Pritchett M.D. Jul 18, 2019 12:35
[2019-07-18 13:17] LABS: ANION GAP 8 mmol/L (5-15); BLOOD UREA NITROGEN 18 mg/dL (7-18); CALCIUM 9.6 MG/DL (8.5-10.1); CARBON DIOXIDE 27 MMOL/L (21-32); CHLORIDE 110 MMOL/L (98-107); CREATININE 0.6 MG/DL (0.55-1.30); POTASSIUM 3.4 MMOL/L (3.5-5.1); SODIUM 145 MMOL/L (136-145)
--- NOTE | 2019-07-18 15:44 | Diagnostic Imaging Report ---
Indication: Acute renal failure Technique: Grayscale and duplex images of the kidneys, retroperitoneum, and bladder were obtained. Comparison: Abdomen pelvis CT dated 07/16/2019 Findings: Right kidney measures 9.6 cm in length. Left kidney measures 10.8 cm in length. Both kidneys demonstrate normal echogenicity. No hydronephrosis. The left kidney demonstrates a 1.7 cm cyst coming off of the upper pole. The right kidney demonstrates calculus measuring 8 mm in the right lower pole.. Normal inferior vena cava, IVC filter demonstrated on prior CT scan not clearly demonstrated.. Bladder is empty, contains a suprapubic catheter. Large septated mostly cystic mass described on prior CT scan is demonstrated. There is layering of debris in one of the larger cyst Impression: Negative for hydronephrosis. Note that hydronephrosis described on recent CT scan is not evident Nonobstructive right lower pole calyceal calculus, also described on prior CT And 2 bladder with a suprapubic catheter, also previously described Incidental finding left renal cyst.
[2019-07-18 16:00] VITALS: BP 131/69
[2019-07-18] MEDS: cefTRIAXone 1 GM in D5W 55 ML IVPB SCH (18:48)
[2019-07-18 20:00] VITALS: BP 131/66
[2019-07-18] MEDS: Iron Sucrose 100 MG in NS 55 ML IV SCH (21:40)
--- NOTE | 2019-07-18 22:23 | Surgery Progress Note ---
Surgery Progress Note Subjective Additional Comments stable comfortable abd distended no BM Objective Last 24 Hour Vital Signs Date Time Temp Pulse Resp B/P (MAP) Pulse Ox O2 Delivery O2 Flow Rate FiO2 07/18/19 16:00 98.1 99 18 131/69 (89) 96 07/18/19 12:00 98.1 91 17 139/62 (87) 97 07/18/19 09:00 Room Air 07/18/19 08:00 97.6 89 19 149/69 (95) 100 07/18/19 04:00 98.2 90 16 110/58 (75) 96 07/18/19 00:00 97.8 81 19 128/67 (87) 96 I&O Intake and Output 07/17/19 07/18/19 18:59 06:59 Intake Total 600 ml 2100 ml Output Total 350 ml 900 ml Balance 250 ml 1200 ml Intake Oral 600 ml 1200 ml IV Total 600 ml Blood Product 300 ml Output Urine Total 350 ml 900 ml Dressing: other Wound: other Drains: other Cardiovascular: RSR Respiratory: decreased breath sounds Abdomen: soft, distended, non-distended Extremities: no tenderness, no cyanosis Laboratory Tests Test 07/18/19 06:45 07/18/19 12:40 White Blood Count 10.5 K/UL (4.8-10.8) # Red Blood Count 3.49 M/UL (4.20-5.40) L Hemoglobin 10.0 G/DL (12.0-16.0) L Hematocrit 29.8 % (37.0-47.0) L Mean Corpuscular Volume 85 FL (80-99) Mean Corpuscular Hemoglobin 28.6 PG (27.0-31.0) Mean Corpuscular Hemoglobin Concent 33.5 G/DL (32.0-36.0) Red Cell Distribution Width 13.4 % (11.6-14.8) Platelet Count 233 K/UL (150-450) # Mean Platelet Volume 5.9 FL (6.5-10.1) L Neutrophils (%) (Auto) 64.1 % (45.0-75.0) Lymphocytes (%) (Auto) 20.8 % (20.0-45.0) Monocytes (%) (Auto) 10.5 % (1.0-10.0) H Eosinophils (%) (Auto) 3.9 % (0.0-3.0) H Basophils (%) (Auto) 0.7 % (0.0-2.0) Sodium Level 140 MMOL/L (136-145) 145 MMOL/L (136-145) Potassium Level 3.3 MMOL/L (3.5-5.1) L 3.4 MMOL/L (3.5-5.1) L Chloride Level 102 MMOL/L (98-107) 110 MMOL/L (98-107) H Carbon Dioxide Level 27 MMOL/L (21-32) 27 MMOL/L (21-32) Anion Gap 11 mmol/L (5-15) 8 mmol/L (5-15) Blood Urea Nitrogen 39 mg/dL (7-18) H 18 mg/dL (7-18) Creatinine 8.0 MG/DL (0.55-1.30) #H 0.6 MG/DL (0.55-1.30) # Estimat Glomerular Filtration Rate mL/min (>60) mL/min (>60) Glucose Level 90 MG/DL (74-106) 117 MG/DL (74-106) H Calcium Level 8.6 MG/DL (8.5-10.1) 9.6 MG/DL (8.5-10.1) Total Bilirubin 0.4 MG/DL (0.2-1.0) Aspartate Amino Transf (AST/SGOT) 18 U/L (15-37) Alanine Aminotransferase (ALT/SGPT) 18 U/L (12-78) Alkaline Phosphatase 78 U/L (46-116) Total Protein 7.3 G/DL (6.4-8.2) Albumin 3.3 G/DL (3.4-5.0) L Globulin 4.0 g/dL Albumin/Globulin Ratio 0.8 (1.0-2.7) L Plan Problems: (1) Abdominal mass Assessment & Plan: Findings: There is a massive mostly cystic with slight solid component septated mass occupying much of the pelvis and mid to lower abdomen. This measures 33 cm transverse by 14 cm AP by 24 cm craniocaudad. There is an inferior vena cava filter which appears compressed by the mass. It demonstrates a broken off strut that extends into the left common iliac vein. Inferior vena cava appears to be patent. The rectum is distended by feces, measures up to 9.5 cm in diameter. There is no evidence of colonic diverticulosis or diverticulitis. The appendix is not definitely visualized, but no findings to suggest acute appendicitis are evident. No free or loculated intraperitoneal gas or fluid. No small bowel distention. The liver, gallbladder, bile ducts, pancreas, spleen are all unremarkable. The the right adrenal is unremarkable. The left adrenal demonstrates a 2 cm mass which demonstrates nonspecific soft tissue attenuation. Right kidney demonstrates a 7 mm diameter lower pole calyceal calculus. Other smaller calculi are seen in the renal collecting systems bilaterally. There is a left renal cyst. There is mild bilateral hydronephrosis. The bladder is empty, contains a suprapubic catheter. There is bilateral hip and right posterior acetabular surgical hardware. This throws off streak artifact which obscures much of the lower pelvis. The included lung bases demonstrate interstitial septal thickening and groundglass opacity. The heart is enlarged. The bones demonstrate a compression fracture deformity of the L2 vertebral body. There are also compression fracture deformities T7-T8, and large Schmorl's nodes at T11 and 12. 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 Bilateral nonobstructive renal calculi Left renal cyst Postsurgical changes of both hips and the right pelvis Basilar pulmonary interstitial septal thickening and groundglass opacity, may indicate pulmonary edema Mild cardiomegaly Multiple vertebral compression fractures, age indeterminate. Consider MRI for further evaluation if considered clinically relevant (2) Abdominal pain Assessment & Plan: Patient presented with abdominal distention and discomfort. No nausea vomiting fever chills. Significant leukocytosis. Abnormal labs. CT identified as above with large cystic mass ovarian origin. UTI Okay for diet from surgical standpoint IV fluids IV antibiotics Labs ordered Findings: Central abdominal hyperdensity presumably represents massive cystic mass described on recent CT scan. Bowel gas pattern is unremarkable, with moderate gas is seen in the ascending and transverse colon, moderate stool in the right-sided colon, no small bowel distention.. Surgical hardware is seen in the bilateral hips and femurs. Surgical hardware is also seen in the right side of the pelvis. There is an inferior vena cava filter. Impression: Central abdominal hyperdensity, consistent with large cystic mass described on recent CT scan No definite acute process We will follow with serial abdominal examinations No acute surgical mention recommend at this time Thank you for let me participate in patient's care (3) Decubitus skin ulcer Assessment & Plan: Pt presented on admission with multiple pressure injuries. DTPI noted to L buttocks. Base of wound is maroon and indurated with marginal erythema(L)(L)7cm x (W)4.3cm. Non-blanching erythema without induration or fluctuance noted to R buttocks (L) 8cm x (W)6.5cm.. R heel is boggy with non-blanching erythema. L heel is boggy with non-blanching erythema. Small dry callus noted to distal/lateral L foot .No other skin concerns noted. Tx.Plan: Apply Moisture Barrier Paste to R and L buttocks. Cover affected areas with Optifoam drsgs. Change every 3 days and prn. Apply Cavilon Skin Barrier to both heels. Cover each heel with Optifoam drsg. Change every 7 days and prn. Reposition at least every 2 hours or as tolerated. Off-load heels with pillow. Nutritional optimization when ready Thank you Alon Denise Jul 18, 2019 22:23
[2019-07-19] VITALS: BP 132/63
[2019-07-19] MEDS: D5 1/2NS 1,000 ML IV SCH ×3 (02:32→23:22)
[2019-07-19 04:00] VITALS: BP 130/54
[2019-07-19 08:00] VITALS: BP_SYST 143; BP_SYST 97; BP_DIAS 58; BP_DIAS 70
[2019-07-19 08:20] LABS: HEMATOCRIT 28.7 % (37.0-47.0); HEMOGLOBIN 9.2 G/DL (12.0-16.0); MEAN CORPUSCULAR VOLUME 85 FL (80-99); PLATELET COUNT 850 K/UL (150-450); RED BLOOD COUNT 3.37 M/UL (4.20-5.40); RED CELL DISTRIBUTION WIDTH 13.9 % (11.6-14.8)
[2019-07-19 08:28] LABS: WHITE BLOOD COUNT 37.5 K/UL (4.8-10.8)
[2019-07-19 08:52] LABS: ANION GAP 8 mmol/L (5-15); BLOOD UREA NITROGEN 15 mg/dL (7-18); CALCIUM 8.9 MG/DL (8.5-10.1); CARBON DIOXIDE 28 MMOL/L (21-32); CHLORIDE 108 MMOL/L (98-107); CREATININE 0.7 MG/DL (0.55-1.30); POTASSIUM 2.9 MMOL/L (3.5-5.1); SODIUM 144 MMOL/L (136-145)
[2019-07-19] MEDS: Docusate 100mg cap ORAL SCH ×2 (09:00→13:00)
[2019-07-19] MEDS: Citalopram Hydrobromide 10mg Tab ORAL SCH (09:00)
[2019-07-19] MEDS: Aspirin Baby 81mg ORAL SCH (09:00)
[2019-07-19] MEDS: Enoxaparin 40mg Inj SUBQ SCH (09:30)
--- NOTE | 2019-07-19 09:39 | General Progress Note ---
Assessment/Plan Problem List: (1) Abdominal mass ICD Codes: R19.00 - Intra-abdominal and pelvic swelling, mass and lump, unspecified site SNOMED: 668431111 Qualifiers: Qualified Codes: R19.00 - Intra-abdominal and pelvic swelling, mass and lump , unspecified site (2) Sepsis ICD Codes: A41.9 - Sepsis, unspecified organism SNOMED: 00163624 Qualifiers: Qualified Codes: A41.9 - Sepsis, unspecified organism (3) UTI (urinary tract infection) ICD Codes: N39.0 - Urinary tract infection, site not specified SNOMED: 45019131 Qualifiers: Qualified Codes: N39.0 - Urinary tract infection, site not specified (4) Fecal impaction ICD Codes: K56.41 - Fecal impaction SNOMED: 50474554 (5) Pelvic mass ICD Codes: R19.00 - Intra-abdominal and pelvic swelling, mass and lump, unspecified site SNOMED: 59211749 (6) Abdominal pain ICD Codes: R10.9 - Unspecified abdominal pain SNOMED: 52884129 (7) AMS (altered mental status) ICD Codes: R41.82 - Altered mental status, unspecified SNOMED: 134972037 Qualifiers: Qualified Codes: R41.82 - Altered mental status, unspecified (8) Decubitus skin ulcer ICD Codes: L89.90 - Pressure ulcer of unspecified site, unspecified stage SNOMED: 848009670 Status: unchanged Assessment/Plan: pt diet wound care abx gi f/u cbc bmp am aru eval Subjective Constitutional: Reports: weakness Allergies: Coded Allergies: PENICILLINS (Verified Allergy, Unknown, 07/17/19) tolerates Ceftriaxone All Systems: reviewed and negative except above Subjective sleepy calm Objective Last 24 Hour Vital Signs Date Time Temp Pulse Resp B/P (MAP) Pulse Ox O2 Delivery O2 Flow Rate FiO2 07/19/19 08:00 97.8 73 18 143/70 (94) 100 07/19/19 08:00 99.5 73 20 97/58 (71) 100 07/19/19 04:00 97.5 88 20 130/54 (79) 96 07/19/19 00:47 100.0 07/19/19 00:00 100.6 100 20 132/63 (86) 95 07/18/19 21:00 Room Air 12/6/19 20:00 99.0 101 20 131/66 (87) 97 07/18/19 16:00 98.1 99 18 131/69 (89) 96 07/18/19 12:00 98.1 91 17 139/62 (87) 97 Intake and Output 07/18/19 07/19/19 19:00 07:00 Intake Total 1240 ml 55 ml Output Total 800 ml 300 ml Balance 440 ml -245 ml IV Total 540 ml 55 ml Other 700 ml Output Urine Total 800 ml 300 ml Laboratory Tests 07/18/19 12:40: Sodium Level 145, Potassium Level 3.4L, Chloride Level 110H, Carbon Dioxide Level 27, Anion Gap 8, Blood Urea Nitrogen 18, Creatinine 0.6#, Estimat Glomerular Filtration Rate , Glucose Level 117H, Calcium Level 9.6 07/19/19 07:43: Sodium Level 144, Potassium Level 2.9L, Chloride Level 108H, Carbon Dioxide Level 28, Anion Gap 8, Blood Urea Nitrogen 15, Creatinine 0.7, Estimat Glomerular Filtration Rate , Glucose Level 108H, Calcium Level 8.9, White Blood Count 37.5#*H, Red Blood Count 3.37L, Hemoglobin 9.2L, Hematocrit 28.7L, Mean Corpuscular Volume 85, Mean Corpuscular Hemoglobin 27.3, Mean Corpuscular Hemoglobin Concent 32.1, Red Cell Distribution Width 13.9, Platelet Count 850#H , Mean Platelet Volume 4.6L, Neutrophils (%) (Auto) , Lymphocytes (%) (Auto) , Monocytes (%) (Auto) , Eosinophils (%) (Auto) , Basophils (%) (Auto) , Neutrophils % (Manual) [Pending], Lymphocytes % (Manual) [Pending], Platelet Estimate [Pending], Platelet Morphology [Pending] Height (Feet): 5 Height (Inches): 6.00 Weight (Pounds): 158 General Appearance: lethargic EENT: normal ENT inspection Neck: normal alignment Cardiovascular: normal peripheral pulses, normal rate, regular rhythm Respiratory/Chest: chest wall non-tender, lungs clear, normal breath sounds Abdomen: normal bowel sounds, non tender, soft Extremities: normal inspection Edema: no edema noted Arm (L), no edema noted Arm (R), no edema noted Leg (L), no edema noted Leg (R), no edema noted Pedal (L), no edema noted Pedal (R), no edema noted Generalized Neurologic: motor weakness Skin: normal pigmentation, warm/dry Allen Harris DO Jul 19, 2019 09:39
--- NOTE | 2019-07-19 11:12 | Infectious Diseases Prog Note ---
Assessment/Plan Assessment/Plan Assessment: Sepsis 2ry to UTI -u/a wbc tnct, nit +, leuk +3; ucx >100k ESBL E.coli Low grade fever Hyperleukocytosis; overall improved (seems value of 10 was not real); combination of malignancy and UTI CARROLL (Cr jumped from 0.7 to 8)- repeat BMP was 0.6; value of 8 not real -Renal US: Negative for hydronephrosis. Note that hydronephrosis described on recent CT scan is not evident. Nonobstructive right lower pole calyceal calculus, also described on prior CT. And 2 bladder with a suprapubic catheter, also previously described. Incidental finding left renal cyst. 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 Inferior vena cava filter, compressed by the mass and demonstrating a broken off strut. Evidence of rectal fecal impaction. 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 Bilateral nonobstructive renal calculi. Left renal cyst. Postsurgical changes of both hips and the right pelvis. Basilar pulmonary interstitial septal thickening and groundglass opacity, may indicate pulmonary edema. Mild cardiomegaly. Multiple vertebral compression fractures, age indeterminate. COPD GERD PVD Dementia Plan: -Swith empiric Ceftriaxone #4 to Ertapenem for ESBL UTI -f/u cx -Monitor CBC/CMP, temperatures -aspiration precautions -heme onc f.u Thank you for this consultation. Will continue to follow along with you. Discussed with RN Subjective Allergies: Coded Allergies: PENICILLINS (Verified Allergy, Unknown, 07/17/19) tolerates Ceftriaxone Subjective Tm 100.6 seems like his labs yesterday were not right as wbc down ffrom 37 to 10 and today back on 37; and Cr from 0.7 to 8 and repeat BMP showed cr of 0.6 Bcx NTD Objective Vital Signs Last 24 Hour Vital Signs Date Time Temp Pulse Resp B/P (MAP) Pulse Ox O2 Delivery O2 Flow Rate FiO2 07/19/19 08:00 97.8 73 18 143/70 (94) 100 07/19/19 08:00 99.5 73 20 97/58 (71) 100 07/19/19 04:00 97.5 88 20 130/54 (79) 96 07/19/19 00:47 100.0 07/19/19 00:00 100.6 100 20 132/63 (86) 95 07/18/19 21:00 Room Air 07/18/19 20:00 99.0 101 20 131/66 (87) 97 07/18/19 16:00 98.1 99 18 131/69 (89) 96 07/18/19 12:00 98.1 91 17 139/62 (87) 97 Height (Feet): 5 Height (Inches): 6.00 Weight (Pounds): 158 Objective General Appearance: cachetic, lethargic Head: normocephalic Eyes: bilateral eye normal inspection, bilateral eye PERRL ENT: normal ENT inspection Neck: normal inspection Respiratory: chest non-tender, lungs clear, normal breath sounds, speaking full sentences Cardiovascular #1: regular rate, rhythm, no edema Gastrointestinal: normal bowel sounds, non tender, soft, no guarding, no rebound, distended Neurologic: other - nonvebral Skin: other - see nursing skin notes Microbiology Date/Time Source Procedure Growth Status 07/16/19 17:50 Blood Blood Culture - Preliminary NO GROWTH AFTER 48 HOURS Resulted 07/16/19 17:45 Blood Blood Culture - Preliminary NO GROWTH AFTER 48 HOURS Resulted 07/16/19 20:25 Nasal Nares MRSA Culture - Final NO METHICILLIN RESISTANT STAPH AUREUS... Complete 07/16/19 17:57 Urine,Clean Catch Urine Culture - Final Escherichia Coli - Esbl Complete 07/16/19 20:25 Rectum - Final NO CARBAPENEM-RESISTANT ENTEROBACTERI... Complete 07/16/19 20:25 Rectum VRE Culture - Final Enterococcus Faecium - Vre Enterococcus Faecalis - Vre Complete Laboratory Tests Test 07/18/19 12:40 07/19/19 07:43 Sodium Level 145 MMOL/L (136-145) 144 MMOL/L (136-145) Potassium Level 3.4 MMOL/L (3.5-5.1) L 2.9 MMOL/L (3.5-5.1) L Chloride Level 110 MMOL/L (98-107) H 108 MMOL/L (98-107) H Carbon Dioxide Level 27 MMOL/L (21-32) 28 MMOL/L (21-32) Anion Gap 8 mmol/L (5-15) 8 mmol/L (5-15) Blood Urea Nitrogen 18 mg/dL (7-18) 15 mg/dL (7-18) Creatinine 0.6 MG/DL (0.55-1.30) # 0.7 MG/DL (0.55-1.30) Estimat Glomerular Filtration Rate mL/min (>60) mL/min (>60) Glucose Level 117 MG/DL (74-106) H 108 MG/DL (74-106) H Calcium Level 9.6 MG/DL (8.5-10.1) 8.9 MG/DL (8.5-10.1) White Blood Count 37.5 K/UL (4.8-10.8) #*H Red Blood Count 3.37 M/UL (4.20-5.40) L Hemoglobin 9.2 G/DL (12.0-16.0) L Hematocrit 28.7 % (37.0-47.0) L Mean Corpuscular Volume 85 FL (80-99) Mean Corpuscular Hemoglobin 27.3 PG (27.0-31.0) Mean Corpuscular Hemoglobin Concent 32.1 G/DL (32.0-36.0) Red Cell Distribution Width 13.9 % (11.6-14.8) Platelet Count 850 K/UL (150-450) #H Mean Platelet Volume 4.6 FL (6.5-10.1) L Neutrophils (%) (Auto) % (45.0-75.0) Lymphocytes (%) (Auto) % (20.0-45.0) Monocytes (%) (Auto) % (1.0-10.0) Eosinophils (%) (Auto) % (0.0-3.0) Basophils (%) (Auto) % (0.0-2.0) Differential Total Cells Counted 100 Neutrophils % (Manual) 90 % (45-75) H Lymphocytes % (Manual) 4 % (20-45) L Monocytes % (Manual) 4 % (1-10) Eosinophils % (Manual) 1 % (0-3) Basophils % (Manual) 1 % (0-2) Band Neutrophils 0 % (0-8) Platelet Estimate Increased H Platelet Morphology Normal Hypochromasia 2+ Anisocytosis 1+ Current Medications Medications (Trade) Dose Ordered Sig/Irene Route PRN Reason Start Time Stop Time Status Last Admin Dose Admin Acetaminophen (Tylenol) 650 mg Q8H PRN ORAL Mild Pain/Temp > 100.5 07/17/19 05:15 08/16/19 05:14 07/19/19 00:17 Aspirin (ASA) 81 mg DAILY ORAL 07/17/19 09:00 08/16/19 08:59 07/18/19 09:34 Budesonide/ Formoterol Fumarate (Symbicort 160/ 4.5) 2 puff BIDRT INH 07/17/19 10:00 08/16/19 09:59 07/19/19 09:33 Ceftriaxone Sodium 1 gm/ Dextrose 55 ml @ 110 mls/hr Q24H IVPB 07/17/19 19:00 07/24/19 18:59 07/18/19 18:48 Citalopram Hydrobromide (celeXA) 20 mg DAILY ORAL 07/17/19 09:00 08/16/19 08:59 07/18/19 09:33 Dextrose/Sodium Chloride 1,000 ml @ 60 mls/hr [id number] IV 07/17/19 00:15 08/16/19 00:14 07/19/19 02:32 Diphenhydramine HCl (Benadryl) 25 mg Q12H PRN ORAL Itching 07/17/19 05:15 08/16/19 05:14 Docusate Sodium (Colace) 100 mg THREE TIMES A DAY ORAL 07/17/19 13:00 08/16/19 12:59 07/18/19 18:47 Enoxaparin Sodium (Lovenox) 40 mg DAILY SUBQ 07/17/19 09:00 08/16/19 08:59 07/19/19 09:30 Iron Sucrose 100 mg/Sodium Chloride 60 ml @ 240 mls/hr BEDTIME IV 07/18/19 21:00 07/20/19 21:14 07/18/19 21:40 Mineral Oil (Mineral Oil) 30 ml DAILYPRN PRN ORAL Constipation 07/17/19 12:45 08/16/19 12:44 Ondansetron HCl (Zofran) 4 mg Q6H PRN IVP Nausea & Vomiting 07/17/19 20:30 08/16/19 18:29 Pantoprazole (Protonix) 40 mg DAILY@0630 ORAL 07/17/19 06:30 08/16/19 06:29 07/19/19 06:13 Polyethylene Glycol (Miralax) 17 gm DAILYPRN PRN ORAL Constipation 07/17/19 12:45 08/16/19 12:44 Potassium Chloride 100 ml @ 100 mls/hr Q1HR IVPB 07/19/19 11:00 07/19/19 14:59 Pravastatin Sodium (Pravachol) 40 mg BEDTIME ORAL 07/17/19 21:00 08/16/19 20:59 07/18/19 21:41 Prochlorperazine (Compazine) 5 mg Q8H PRN IVP Nausea & Vomiting 07/17/19 20:30 08/16/19 20:29 Risperidone (RisperDAL) 0.5 mg DAILY ORAL 07/17/19 09:00 08/16/19 08:59 07/18/19 09:34 Simethicone (Mylicon) 125 mg Q8H PRN ORAL GAS PAIN 07/17/19 00:15 08/16/19 00:14 Zolpidem Tartrate (Ambien) 5 mg HSPRN PRN ORAL Insomnia 07/17/19 05:15 07/24/19 05:14 Shameka Pritchett M.D. Jul 19, 2019 11:12
[2019-07-19 12:00] VITALS: BP 136/66
--- NOTE | 2019-07-19 12:07 | Surgery Progress Note ---
Surgery Progress Note Subjective Additional Comments Patient seen examined bedside. No acute events. Labs noted today and likely labs from yesterday were a false result potentially contamination versus loss. Still with significant leukocytosis, low-grade fevers, abnormal labs. Examination unchanged with distended abdomen mass filled. Objective Last 24 Hour Vital Signs Date Time Temp Pulse Resp B/P (MAP) Pulse Ox O2 Delivery O2 Flow Rate FiO2 07/19/19 09:00 Room Air 07/19/19 08:00 97.8 73 18 143/70 (94) 100 07/19/19 08:00 99.5 73 20 97/58 (71) 100 07/19/19 04:00 97.5 88 20 130/54 (79) 96 07/19/19 00:47 100.0 07/19/19 00:00 100.6 100 20 132/63 (86) 95 07/18/19 21:00 Room Air 07/18/19 20:00 99.0 101 20 131/66 (87) 97 07/18/19 16:00 98.1 99 18 131/69 (89) 96 I&O Intake and Output 07/18/19 07/19/19 19:00 07:00 Intake Total 1240 ml 55 ml Output Total 800 ml 300 ml Balance 440 ml -245 ml IV Total 540 ml 55 ml Other 700 ml Output Urine Total 800 ml 300 ml Dressing: other Wound: other Drains: other Cardiovascular: RSR Respiratory: decreased breath sounds Abdomen: soft, distended, non-tender, present bowel sounds Extremities: no tenderness, no cyanosis Laboratory Tests Test 07/18/19 12:40 07/19/19 07:43 Sodium Level 145 MMOL/L (136-145) 144 MMOL/L (136-145) Potassium Level 3.4 MMOL/L (3.5-5.1) L 2.9 MMOL/L (3.5-5.1) L Chloride Level 110 MMOL/L (98-107) H 108 MMOL/L (98-107) H Carbon Dioxide Level 27 MMOL/L (21-32) 28 MMOL/L (21-32) Anion Gap 8 mmol/L (5-15) 8 mmol/L (5-15) Blood Urea Nitrogen 18 mg/dL (7-18) 15 mg/dL (7-18) Creatinine 0.6 MG/DL (0.55-1.30) # 0.7 MG/DL (0.55-1.30) Estimat Glomerular Filtration Rate mL/min (>60) mL/min (>60) Glucose Level 117 MG/DL (74-106) H 108 MG/DL (74-106) H Calcium Level 9.6 MG/DL (8.5-10.1) 8.9 MG/DL (8.5-10.1) White Blood Count 37.5 K/UL (4.8-10.8) #*H Red Blood Count 3.37 M/UL (4.20-5.40) L Hemoglobin 9.2 G/DL (12.0-16.0) L Hematocrit 28.7 % (37.0-47.0) L Mean Corpuscular Volume 85 FL (80-99) Mean Corpuscular Hemoglobin 27.3 PG (27.0-31.0) Mean Corpuscular Hemoglobin Concent 32.1 G/DL (32.0-36.0) Red Cell Distribution Width 13.9 % (11.6-14.8) Platelet Count 850 K/UL (150-450) #H Mean Platelet Volume 4.6 FL (6.5-10.1) L Neutrophils (%) (Auto) % (45.0-75.0) Lymphocytes (%) (Auto) % (20.0-45.0) Monocytes (%) (Auto) % (1.0-10.0) Eosinophils (%) (Auto) % (0.0-3.0) Basophils (%) (Auto) % (0.0-2.0) Differential Total Cells Counted 100 Neutrophils % (Manual) 90 % (45-75) H Lymphocytes % (Manual) 4 % (20-45) L Monocytes % (Manual) 4 % (1-10) Eosinophils % (Manual) 1 % (0-3) Basophils % (Manual) 1 % (0-2) Band Neutrophils 0 % (0-8) Platelet Estimate Increased H Platelet Morphology Normal Hypochromasia 2+ Anisocytosis 1+ Plan Problems: (1) Abdominal mass Assessment & Plan: Findings: There is a massive mostly cystic with slight solid component septated mass occupying much of the pelvis and mid to lower abdomen. This measures 33 cm transverse by 14 cm AP by 24 cm craniocaudad. There is an inferior vena cava filter which appears compressed by the mass. It demonstrates a broken off strut that extends into the left common iliac vein. Inferior vena cava appears to be patent. The rectum is distended by feces, measures up to 9.5 cm in diameter. There is no evidence of colonic diverticulosis or diverticulitis. The appendix is not definitely visualized, but no findings to suggest acute appendicitis are evident. No free or loculated intraperitoneal gas or fluid. No small bowel distention. The liver, gallbladder, bile ducts, pancreas, spleen are all unremarkable. The the right adrenal is unremarkable. The left adrenal demonstrates a 2 cm mass which demonstrates nonspecific soft tissue attenuation. Right kidney demonstrates a 7 mm diameter lower pole calyceal calculus. Other smaller calculi are seen in the renal collecting systems bilaterally. There is a left renal cyst. There is mild bilateral hydronephrosis. The bladder is empty, contains a suprapubic catheter. There is bilateral hip and right posterior acetabular surgical hardware. This throws off streak artifact which obscures much of the lower pelvis. The included lung bases demonstrate interstitial septal thickening and groundglass opacity. The heart is enlarged. The bones demonstrate a compression fracture deformity of the L2 vertebral body. There are also compression fracture deformities T7-T8, and large Schmorl's nodes at T11 and 12. 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 Bilateral nonobstructive renal calculi Left renal cyst Postsurgical changes of both hips and the right pelvis Basilar pulmonary interstitial septal thickening and groundglass opacity, may indicate pulmonary edema Mild cardiomegaly Multiple vertebral compression fractures, age indeterminate. Consider MRI for further evaluation if considered clinically relevant (2) Abdominal pain Assessment & Plan: Patient presented with abdominal distention and discomfort. No nausea vomiting fever chills. Significant leukocytosis. Abnormal labs. CT identified as above with large cystic mass ovarian origin. UTI Okay for diet from surgical standpoint IV fluids IV antibiotics Labs ordered Findings: Central abdominal hyperdensity presumably represents massive cystic mass described on recent CT scan. Bowel gas pattern is unremarkable, with moderate gas is seen in the ascending and transverse colon, moderate stool in the right-sided colon, no small bowel distention.. Surgical hardware is seen in the bilateral hips and femurs. Surgical hardware is also seen in the right side of the pelvis. There is an inferior vena cava filter. Impression: Central abdominal hyperdensity, consistent with large cystic mass described on recent CT scan No definite acute process We will follow with serial abdominal examinations No acute surgical mention recommend at this time Thank you for let me participate in patient's care (3) Decubitus skin ulcer Assessment & Plan: Pt presented on admission with multiple pressure injuries. DTPI noted to L buttocks. Base of wound is maroon and indurated with marginal erythema(L)(L)7cm x (W)4.3cm. Non-blanching erythema without induration or fluctuance noted to R buttocks (L) 8cm x (W)6.5cm.. R heel is boggy with non-blanching erythema. L heel is boggy with non-blanching erythema. Small dry callus noted to distal/lateral L foot .No other skin concerns noted. Wounds unlikely etiology of patient's sepsis. Tx.Plan: Apply Moisture Barrier Paste to R and L buttocks. Cover affected areas with Optifoam drsgs. Change every 3 days and prn. Apply Cavilon Skin Barrier to both heels. Cover each heel with Optifoam drsg. Change every 7 days and prn. Reposition at least every 2 hours or as tolerated. Off-load heels with pillow. Nutritional optimization when ready Thank you Alon Denise Jul 19, 2019 12:07
[2019-07-19] MEDS: Ertapenem 1 GM in NS 55 ML IVPB SCH (12:41)
[2019-07-19] MEDS: Docusate 100mg/10ml Liq ORAL SCH ×3 (14:00→17:26)
[2019-07-19] MEDS ORDERED: D5 1/2NS 1000ml IV ONE (15:29)
[2019-07-19] MEDS ORDERED: Tubing IV Blood Pump IV ONE (15:29)
[2019-07-19 16:00] VITALS: BP 139/72
[2019-07-19 20:00] VITALS: BP 129/58
[2019-07-19] MEDS: Iron Sucrose 100 MG in NS 55 ML IV SCH (21:05)
[2019-07-20] VITALS: BP 136/53
[2019-07-20 04:00] VITALS: BP 129/59
[2019-07-20 07:16] LABS: HEMATOCRIT 28.7 % (37.0-47.0); HEMOGLOBIN 9.2 G/DL (12.0-16.0); MEAN CORPUSCULAR VOLUME 85 FL (80-99); PLATELET COUNT 919 K/UL (150-450); RED BLOOD COUNT 3.38 M/UL (4.20-5.40); RED CELL DISTRIBUTION WIDTH 13.8 % (11.6-14.8)
[2019-07-20 07:32] LABS: WHITE BLOOD COUNT 40.7 K/UL (4.8-10.8)
[2019-07-20 07:41] LABS: ANION GAP 10 mmol/L (5-15); BLOOD UREA NITROGEN 14 mg/dL (7-18); CALCIUM 9.2 MG/DL (8.5-10.1); CARBON DIOXIDE 25 MMOL/L (21-32); CHLORIDE 110 MMOL/L (98-107); CHOLESTEROL 55 MG/DL (< 200); CREATININE 0.6 MG/DL (0.55-1.30); HDL CHOLESTEROL 25 MG/DL (40-60); POTASSIUM 2.9 MMOL/L (3.5-5.1); SODIUM 145 MMOL/L (136-145); TRIGLYCERIDES 41 MG/DL (30-150)
[2019-07-20 07:46] LABS: PHOSPHORUS 2.6 MG/DL (2.5-4.9)
[2019-07-20 08:00] VITALS: BP 130/62
--- NOTE | 2019-07-20 08:44 | General Progress Note ---
Assessment/Plan Problem List: (1) Abdominal mass ICD Codes: R19.00 - Intra-abdominal and pelvic swelling, mass and lump, unspecified site SNOMED: 200622327 Qualifiers: Qualified Codes: R19.00 - Intra-abdominal and pelvic swelling, mass and lump , unspecified site (2) Sepsis ICD Codes: A41.9 - Sepsis, unspecified organism SNOMED: 18224355 Qualifiers: Qualified Codes: A41.9 - Sepsis, unspecified organism (3) UTI (urinary tract infection) ICD Codes: N39.0 - Urinary tract infection, site not specified SNOMED: 92815686 Qualifiers: Qualified Codes: N39.0 - Urinary tract infection, site not specified (4) Fecal impaction ICD Codes: K56.41 - Fecal impaction SNOMED: 23594552 (5) Pelvic mass ICD Codes: R19.00 - Intra-abdominal and pelvic swelling, mass and lump, unspecified site SNOMED: 56896734 (6) Abdominal pain ICD Codes: R10.9 - Unspecified abdominal pain SNOMED: 99909414 (7) AMS (altered mental status) ICD Codes: R41.82 - Altered mental status, unspecified SNOMED: 002730372 Qualifiers: Qualified Codes: R41.82 - Altered mental status, unspecified (8) Decubitus skin ulcer ICD Codes: L89.90 - Pressure ulcer of unspecified site, unspecified stage SNOMED: 325967858 Status: unchanged Assessment/Plan: pt diet wound care abx gi f/u cbc bmp am dc plan snf Subjective Constitutional: Reports: weakness Allergies: Coded Allergies: PENICILLINS (Verified Allergy, Unknown, 07/17/19) tolerates Ceftriaxone All Systems: reviewed and negative except above Subjective sleepy calm Objective Last 24 Hour Vital Signs Date Time Temp Pulse Resp B/P (MAP) Pulse Ox O2 Delivery O2 Flow Rate FiO2 07/20/19 04:00 98.6 94 21 129/59 (82) 95 07/20/19 00:00 98.7 85 17 136/53 (80) 94 07/19/19 21:30 99.7 07/19/19 21:30 99.7 07/19/19 20:25 Room Air 07/19/19 20:00 101.3 108 20 129/58 (81) 95 07/19/19 16:00 98.0 90 18 139/72 (94) 96 07/19/19 12:00 97.7 87 18 136/66 (89) 95 07/19/19 09:00 Room Air Intake and Output 07/19/19 07/20/19 19:00 07:00 Intake Total 1335 ml Output Total 400 ml 400 ml Balance 935 ml -400 ml Intake Oral 880 ml IV Total 455 ml Output Urine Total 400 ml 400 ml Laboratory Tests 07/20/19 06:15: White Blood Count 40.7*H, Red Blood Count 3.38L, Hemoglobin 9.2L, Hematocrit 28.7L, Mean Corpuscular Volume 85, Mean Corpuscular Hemoglobin 27.1, Mean Corpuscular Hemoglobin Concent 32.0, Red Cell Distribution Width 13.8, Platelet Count 919H, Mean Platelet Volume 4.6L, Neutrophils (%) (Auto) , Lymphocytes (%) (Auto) , Monocytes (%) (Auto) , Eosinophils (%) (Auto) , Basophils (%) (Auto) , Neutrophils % (Manual) [Pending], Lymphocytes % (Manual) [Pending], Platelet Estimate [Pending], Platelet Morphology [Pending], Sodium Level 145, Potassium Level 2.9L, Chloride Level 110H, Carbon Dioxide Level 25, Anion Gap 10, Blood Urea Nitrogen 14, Creatinine 0.6, Estimat Glomerular Filtration Rate , Glucose Level 97, Hemoglobin A1c [Pending], Uric Acid 1.9L, Calcium Level 9.2, Phosphorus Level 2.6, Magnesium Level 1.9, Gamma Glutamyl Transpeptidase 264H, C -Reactive Protein, Quantitative 22.8H, Pro-B-Type Natriuretic Peptide 3913H, Triglycerides Level 41, Cholesterol Level 55, LDL Cholesterol 21, HDL Cholesterol 25L, Cholesterol/HDL Ratio 2.2L, Folate 18.2, Thyroid Stimulating Hormone (TSH) 3.556 Height (Feet): 5 Height (Inches): 6.00 Weight (Pounds): 158 General Appearance: lethargic EENT: normal ENT inspection Neck: normal alignment Cardiovascular: normal peripheral pulses, normal rate, regular rhythm Respiratory/Chest: chest wall non-tender, lungs clear, normal breath sounds Abdomen: normal bowel sounds, non tender, soft Extremities: normal inspection Edema: no edema noted Arm (L), no edema noted Arm (R), no edema noted Leg (L), no edema noted Leg (R), no edema noted Pedal (L), no edema noted Pedal (R), no edema noted Generalized Neurologic: motor weakness Skin: normal pigmentation, warm/dry Allen Harris DO Jul 20, 2019 08:44
[2019-07-20] MEDS: Docusate 100mg/10ml Liq ORAL SCH ×3 (09:07→17:57)
[2019-07-20] MEDS: Citalopram Hydrobromide 10mg Tab ORAL SCH (09:07)
[2019-07-20] MEDS: Aspirin Baby 81mg ORAL SCH (09:07)
[2019-07-20] MEDS: Enoxaparin 40mg Inj SUBQ SCH (09:14)
--- NOTE | 2019-07-20 09:26 | Hematology/Onc Progress Note ---
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 ovarian or gynecological primary --> apparently has had eval in the past --> imaging has been reviewed --> is on dnr/comfort care for this # Leukocytosis is related to underlying uti with septic shock in addition may be caused by malignancy --> wbc trend 48-->37->11-->40k --> on abx as per id --> smear has been reviewed --> lactic acid remains high --> ivf have been started # Anemia of chronic disease --> panel ordered and reviewed --> transfuse if hgb drops further, hgb 7.7-->8-->10-->9.2 # AMS (altered mental status) --> likely related to underlying uti --> on abx as per id # UTI (urinary tract infection) --> lactic > 3, UA + bacteria --> s/p abx # Sepsis # Dvt ppx scds Appreciate consultation and reshma RN Subjective HEENT: Denies: no symptoms, eye pain, blurred vision, tearing, double vision, ear pain, ear discharge, nose pain, nose congestion, throat pain, throat swelling, mouth pain, mouth swelling, other Cardiovascular: Denies: no symptoms, chest pain, edema, irregular heart rate, lightheadedness, palpitations, syncope, other Respiratory: Denies: no symptoms, cough, shortness of breath, SOB with excertion, SOB at rest, sputum, wheezing, other Genitourinary: Denies: no symptoms, burning, discharge, frequency, flank pain, hematuria, incontinence, pain, urgency, other Neurologic/Psychiatric: Denies: no symptoms, anxiety, depressed, emotional problems, headache, numbness, paresthesia, pre-existing deficit, seizure, tingling, tremors, weakness, other Endocrine: Denies: no symptoms, excessive sweating, flushing, intolerance to cold, intolerance to heat, increased hunger, increased thirst, increased urine, unexplained weight gain, unexplained weight loss, other Allergies: Coded Allergies: PENICILLINS (Verified Allergy, Unknown, 07/17/19) tolerates Ceftriaxone Subjective 07/18: no events, no bleeding, no f/c, no night sweats 07/20: no major changes, still with abdominal pain, passing gas Objective Objective Current Medications Medications (Trade) Dose Ordered Sig/Irene Route PRN Reason Start Time Stop Time Status Last Admin Dose Admin Acetaminophen (Tylenol) 650 mg Q8H PRN ORAL Mild Pain/Temp > 100.5 07/17/19 05:15 08/16/19 05:14 07/19/19 21:00 Aspirin (ASA) 81 mg DAILY ORAL 07/17/19 09:00 08/16/19 08:59 07/20/19 09:07 Budesonide/ Formoterol Fumarate (Symbicort 160/ 4.5) 2 puff BIDRT INH 07/17/19 10:00 08/16/19 09:59 07/19/19 09:33 Citalopram Hydrobromide (celeXA) 20 mg DAILY ORAL 07/17/19 09:00 08/16/19 08:59 07/20/19 09:07 Dextrose/Sodium Chloride 1,000 ml @ 60 mls/hr [id number] IV 07/17/19 00:15 08/16/19 00:14 07/19/19 23:22 Diphenhydramine HCl (Benadryl) 25 mg Q12H PRN ORAL Itching 07/17/19 05:15 08/16/19 05:14 Docusate Sodium (Colace) 100 mg THREE TIMES A DAY ORAL 07/19/19 14:00 08/16/19 13:59 07/20/19 09:07 Enoxaparin Sodium (Lovenox) 40 mg DAILY SUBQ 07/17/19 09:00 08/16/19 08:59 07/20/19 09:14 Ertapenem 1 gm/ Sodium Chloride 55 ml @ 110 mls/hr Q24H IVPB 07/19/19 12:00 07/24/19 11:59 07/19/19 12:41 Iron Sucrose 100 mg/Sodium Chloride 60 ml @ 240 mls/hr BEDTIME IV 07/18/19 21:00 07/20/19 21:14 07/19/19 21:05 Mineral Oil (Mineral Oil) 30 ml DAILYPRN PRN ORAL Constipation 07/17/19 12:45 08/16/19 12:44 Ondansetron HCl (Zofran) 4 mg Q6H PRN IVP Nausea & Vomiting 07/17/19 20:30 08/16/19 18:29 Pantoprazole (Protonix) 40 mg DAILY@0630 ORAL 07/17/19 06:30 08/16/19 06:29 07/20/19 05:58 Polyethylene Glycol (Miralax) 17 gm DAILYPRN PRN ORAL Constipation 07/17/19 12:45 08/16/19 12:44 Pravastatin Sodium (Pravachol) 40 mg BEDTIME ORAL 07/17/19 21:00 08/16/19 20:59 07/19/19 20:59 Prochlorperazine (Compazine) 5 mg Q8H PRN IVP Nausea & Vomiting 07/17/19 20:30 08/16/19 20:29 Risperidone (RisperDAL) 0.5 mg DAILY ORAL 07/17/19 09:00 08/16/19 08:59 07/20/19 09:07 Simethicone (Mylicon) 125 mg Q8H PRN ORAL GAS PAIN 07/17/19 00:15 08/16/19 00:14 Zolpidem Tartrate (Ambien) 5 mg HSPRN PRN ORAL Insomnia 07/17/19 05:15 07/24/19 05:14 Last 24 Hour Vital Signs Date Time Temp Pulse Resp B/P (MAP) Pulse Ox O2 Delivery O2 Flow Rate FiO2 07/20/19 08:00 98.5 94 20 130/62 (84) 96 07/20/19 04:00 98.6 94 21 129/59 (82) 95 07/20/19 00:00 98.7 85 17 136/53 (80) 94 07/19/19 21:30 99.7 07/19/19 21:30 99.7 07/19/19 20:25 Room Air 07/19/19 20:00 101.3 108 20 129/58 (81) 95 07/19/19 16:00 98.0 90 18 139/72 (94) 96 07/19/19 12:00 97.7 87 18 136/66 (89) 95 07/19/19 09:00 Room Air 07/19/19 08:00 97.8 73 18 143/70 (94) 100 07/19/19 08:00 99.5 73 20 97/58 (71) 100 07/19/19 04:00 97.5 88 20 130/54 (79) 96 07/19/19 00:00 100.6 100 20 132/63 (86) 95 07/18/19 21:00 Room Air 07/18/19 20:00 99.0 101 20 131/66 (87) 97 07/18/19 16:00 98.1 99 18 131/69 (89) 96 07/18/19 12:00 98.1 91 17 139/62 (87) 97 Intake and Output 07/19/19 07/20/19 19:00 07:00 Intake Total 1335 ml Output Total 400 ml 400 ml Balance 935 ml -400 ml Intake Oral 880 ml IV Total 455 ml Output Urine Total 400 ml 400 ml Labs Test 07/18/19 06:45 07/18/19 12:40 07/19/19 07:43 07/20/19 06:15 White Blood Count 10.5 K/UL (4.8-10.8) 37.5 K/UL (4.8-10.8) 40.7 K/UL (4.8-10.8) Red Blood Count 3.49 M/UL (4.20-5.40) 3.37 M/UL (4.20-5.40) 3.38 M/UL (4.20-5.40) Hemoglobin 10.0 G/DL (12.0-16.0) 9.2 G/DL (12.0-16.0) 9.2 G/DL (12.0-16.0) Hematocrit 29.8 % (37.0-47.0) 28.7 % (37.0-47.0) 28.7 % (37.0-47.0) Mean Corpuscular Volume 85 FL (80-99) 85 FL (80-99) 85 FL (80-99) Mean Corpuscular Hemoglobin 28.6 PG (27.0-31.0) 27.3 PG (27.0-31.0) 27.1 PG (27.0-31.0) Mean Corpuscular Hemoglobin Concent 33.5 G/DL (32.0-36.0) 32.1 G/DL (32.0-36.0) 32.0 G/DL (32.0-36.0) Red Cell Distribution Width 13.4 % (11.6-14.8) 13.9 % (11.6-14.8) 13.8 % (11.6-14.8) Platelet Count 233 K/UL (150-450) 850 K/UL (150-450) 919 K/UL (150-450) Mean Platelet Volume 5.9 FL (6.5-10.1) 4.6 FL (6.5-10.1) 4.6 FL (6.5-10.1) Neutrophils (%) (Auto) 64.1 % (45.0-75.0) % (45.0-75.0) % (45.0-75.0) Lymphocytes (%) (Auto) 20.8 % (20.0-45.0) % (20.0-45.0) % (20.0-45.0) Monocytes (%) (Auto) 10.5 % (1.0-10.0) % (1.0-10.0) % (1.0-10.0) Eosinophils (%) (Auto) 3.9 % (0.0-3.0) % (0.0-3.0) % (0.0-3.0) Basophils (%) (Auto) 0.7 % (0.0-2.0) % (0.0-2.0) % (0.0-2.0) Sodium Level 140 MMOL/L (136-145) 145 MMOL/L (136-145) 144 MMOL/L (136-145) 145 MMOL/L (136-145) Potassium Level 3.3 MMOL/L (3.5-5.1) 3.4 MMOL/L (3.5-5.1) 2.9 MMOL/L (3.5-5.1) 2.9 MMOL/L (3.5-5.1) Chloride Level 102 MMOL/L (98-107) 110 MMOL/L (98-107) 108 MMOL/L (98-107) 110 MMOL/L (98-107) Carbon Dioxide Level 27 MMOL/L (21-32) 27 MMOL/L (21-32) 28 MMOL/L (21-32) 25 MMOL/L (21-32) Anion Gap 11 mmol/L (5-15) 8 mmol/L (5-15) 8 mmol/L (5-15) 10 mmol/L (5-15) Blood Urea Nitrogen 39 mg/dL (7-18) 18 mg/dL (7-18) 15 mg/dL (7-18) 14 mg/dL (7-18) Creatinine 8.0 MG/DL (0.55-1.30) 0.6 MG/DL (0.55-1.30) 0.7 MG/DL (0.55-1.30) 0.6 MG/DL (0.55-1.30) Estimat Glomerular Filtration Rate mL/min (>60) mL/min (>60) mL/min (>60) mL/min (>60) Glucose Level 90 MG/DL (74-106) 117 MG/DL (74-106) 108 MG/DL (74-106) 97 MG/DL (74-106) Calcium Level 8.6 MG/DL (8.5-10.1) 9.6 MG/DL (8.5-10.1) 8.9 MG/DL (8.5-10.1) 9.2 MG/DL (8.5-10.1) Total Bilirubin 0.4 MG/DL (0.2-1.0) Aspartate Amino Transf (AST/SGOT) 18 U/L (15-37) Alanine Aminotransferase (ALT/SGPT) 18 U/L (12-78) Alkaline Phosphatase 78 U/L (46-116) Total Protein 7.3 G/DL (6.4-8.2) Albumin 3.3 G/DL (3.4-5.0) Globulin 4.0 g/dL Albumin/Globulin Ratio 0.8 (1.0-2.7) Differential Total Cells Counted 100 Neutrophils % (Manual) 90 % (45-75) Lymphocytes % (Manual) 4 % (20-45) Monocytes % (Manual) 4 % (1-10) Eosinophils % (Manual) 1 % (0-3) Basophils % (Manual) 1 % (0-2) Band Neutrophils 0 % (0-8) Platelet Estimate Increased Platelet Morphology Normal Hypochromasia 2+ Anisocytosis 1+ Hemoglobin A1c 5.2 % (4.3-6.0) Uric Acid 1.9 MG/DL (2.6-7.2) Phosphorus Level 2.6 MG/DL (2.5-4.9) Magnesium Level 1.9 MG/DL (1.8-2.4) Gamma Glutamyl Transpeptidase 264 U/L (5-85) C-Reactive Protein, Quantitative 22.8 mg/dL (0.00-0.90) Pro-B-Type Natriuretic Peptide 3913 pg/mL (0-125) Triglycerides Level 41 MG/DL (30-150) Cholesterol Level 55 MG/DL (< 200) LDL Cholesterol 21 mg/dL (<100) HDL Cholesterol 25 MG/DL (40-60) Cholesterol/HDL Ratio 2.2 (3.3-4.4) Folate 18.2 NG/ML (8.6-58.9) Thyroid Stimulating Hormone (TSH) 3.556 uiU/mL (0.358-3.740) Height (Feet): 5 Height (Inches): 6.00 Weight (Pounds): 158 Objective PE General: cachetic, lethargic, sleepy difficult to wake up Respiratory: ctab, no cwr Cardiovascular: regular rate, rhythm, no edema Gastrointestinal: somewhat distended, no significant pain Musculoskeletal: back normal Neurologic: other - nonvebral Lymphatic: normal inspection Gonzalo Frankel MD Jul 20, 2019 09:26
[2019-07-20] MEDS: D5 1/2NS 1,000 ML IV SCH (10:45)
[2019-07-20] MEDS ORDERED: Albuterol/Ipratropium 3ml neb HHN PRN (11:15)
--- NOTE | 2019-07-20 11:50 | Consultation ---
Consult Note Consult Note asked to evaluate at the request of Dr Harris patient lethargic- poor historian ER: 89-year-old female presents the ED for evaluation. Brought in by EMS from boarding care. Increased altered level of consciousness x1 day. Also distended abdomen. Unclear how long patient has had a distended abdomen. Afebrile. No signs of distress upon arrival. Unable to find any additional history at this time. No other aggravating relieving factors. Denies any other associated symptoms No Known Allergies (Unverified , 07/16/19) Past Medical History: COPD, GERD, dementia Hx Cardiac Problems: No - pvd Hx COPD: Yes Hx Gastrointestinal Problems: Yes - gerd History Of Psychiatric Problem: Yes - dementia examined data reviewed Assessment/Plan Hypokalemia / Normal renal parameters Leukocytosis (1) Abdominal mass (2) Sepsis (3) UTI (urinary tract infection) (4) Fecal impaction (5) Pelvic mass (6) Abdominal pain (7) AMS (altered mental status) (8) Decubitus skin ulcer Plan : KCL IV Monitor lytes and renal parameters per consultants Abdominal CT: 33 x 14 x 24 cm complex cystic mass in the lower abdomen and upper pelvis, 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 Bilateral nonobstructive renal calculi Left renal cyst Postsurgical changes of both hips and the right pelvis Basilar pulmonary interstitial septal thickening and groundglass opacity, may indicate pulmonary edema Mild cardiomegaly Multiple vertebral compression fractures, age indeterminate. Consider MRI for further evaluation if considered clinically relevant Shekhar Jimenez MD Jul 20, 2019 11:50
[2019-07-20 12:00] VITALS: BP 135/66
[2019-07-20] MEDS: Ertapenem 1 GM in NS 55 ML IVPB SCH (12:13)
[2019-07-20 16:00] VITALS: BP 129/71
[2019-07-20] MEDS ORDERED: Fleet's Enema 133ml RECTAL PRN (16:15)
--- NOTE | 2019-07-20 16:25 | Surgery Progress Note ---
Surgery Progress Note Subjective Additional Comments Patient seen and examined bedside. Labs noted no acute events enema ordered Objective Last 24 Hour Vital Signs Date Time Temp Pulse Resp B/P (MAP) Pulse Ox O2 Delivery O2 Flow Rate FiO2 07/20/19 12:00 98.4 93 20 135/66 (89) 97 07/20/19 09:00 Room Air 07/20/19 08:00 98.5 94 20 130/62 (84) 96 07/20/19 04:00 98.6 94 21 129/59 (82) 95 07/20/19 00:00 98.7 85 17 136/53 (80) 94 07/19/19 21:30 99.7 07/19/19 21:30 99.7 07/19/19 20:25 Room Air 07/19/19 20:00 101.3 108 20 129/58 (81) 95 I&O Intake and Output 07/19/19 07/20/19 19:00 07:00 Intake Total 1335 ml Output Total 400 ml 400 ml Balance 935 ml -400 ml Intake Oral 880 ml IV Total 455 ml Output Urine Total 400 ml 400 ml Dressing: other Wound: other Drains: other Cardiovascular: RSR Respiratory: clear Abdomen: soft, distended, other Extremities: no cyanosis, other Laboratory Tests Test 07/20/19 06:15 White Blood Count 40.7 K/UL (4.8-10.8) *H Red Blood Count 3.38 M/UL (4.20-5.40) L Hemoglobin 9.2 G/DL (12.0-16.0) L Hematocrit 28.7 % (37.0-47.0) L Mean Corpuscular Volume 85 FL (80-99) Mean Corpuscular Hemoglobin 27.1 PG (27.0-31.0) Mean Corpuscular Hemoglobin Concent 32.0 G/DL (32.0-36.0) Red Cell Distribution Width 13.8 % (11.6-14.8) Platelet Count 919 K/UL (150-450) H Mean Platelet Volume 4.6 FL (6.5-10.1) L Neutrophils (%) (Auto) % (45.0-75.0) Lymphocytes (%) (Auto) % (20.0-45.0) Monocytes (%) (Auto) % (1.0-10.0) Eosinophils (%) (Auto) % (0.0-3.0) Basophils (%) (Auto) % (0.0-2.0) Differential Total Cells Counted 100 Neutrophils % (Manual) 84 % (45-75) H Lymphocytes % (Manual) 8 % (20-45) L Monocytes % (Manual) 8 % (1-10) Eosinophils % (Manual) 0 % (0-3) Basophils % (Manual) 0 % (0-2) Band Neutrophils 0 % (0-8) Platelet Estimate Increased H Platelet Morphology Normal Hypochromasia 2+ Anisocytosis 1+ Spherocytes 1+ Sodium Level 145 MMOL/L (136-145) Potassium Level 2.9 MMOL/L (3.5-5.1) L Chloride Level 110 MMOL/L (98-107) H Carbon Dioxide Level 25 MMOL/L (21-32) Anion Gap 10 mmol/L (5-15) Blood Urea Nitrogen 14 mg/dL (7-18) Creatinine 0.6 MG/DL (0.55-1.30) Estimat Glomerular Filtration Rate mL/min (>60) Glucose Level 97 MG/DL (74-106) Hemoglobin A1c 5.2 % (4.3-6.0) Uric Acid 1.9 MG/DL (2.6-7.2) L Calcium Level 9.2 MG/DL (8.5-10.1) Phosphorus Level 2.6 MG/DL (2.5-4.9) Magnesium Level 1.9 MG/DL (1.8-2.4) Gamma Glutamyl Transpeptidase 264 U/L (5-85) H C-Reactive Protein, Quantitative 22.8 mg/dL (0.00-0.90) H Pro-B-Type Natriuretic Peptide 3913 pg/mL (0-125) H Triglycerides Level 41 MG/DL (30-150) Cholesterol Level 55 MG/DL (< 200) LDL Cholesterol 21 mg/dL (<100) HDL Cholesterol 25 MG/DL (40-60) L Cholesterol/HDL Ratio 2.2 (3.3-4.4) L Folate 18.2 NG/ML (8.6-58.9) Thyroid Stimulating Hormone (TSH) 3.556 uiU/mL (0.358-3.740) Plan Problems: (1) Abdominal mass Assessment & Plan: Findings: There is a massive mostly cystic with slight solid component septated mass occupying much of the pelvis and mid to lower abdomen. This measures 33 cm transverse by 14 cm AP by 24 cm craniocaudad. There is an inferior vena cava filter which appears compressed by the mass. It demonstrates a broken off strut that extends into the left common iliac vein. Inferior vena cava appears to be patent. The rectum is distended by feces, measures up to 9.5 cm in diameter. There is no evidence of colonic diverticulosis or diverticulitis. The appendix is not definitely visualized, but no findings to suggest acute appendicitis are evident. No free or loculated intraperitoneal gas or fluid. No small bowel distention. The liver, gallbladder, bile ducts, pancreas, spleen are all unremarkable. The the right adrenal is unremarkable. The left adrenal demonstrates a 2 cm mass which demonstrates nonspecific soft tissue attenuation. Right kidney demonstrates a 7 mm diameter lower pole calyceal calculus. Other smaller calculi are seen in the renal collecting systems bilaterally. There is a left renal cyst. There is mild bilateral hydronephrosis. The bladder is empty, contains a suprapubic catheter. There is bilateral hip and right posterior acetabular surgical hardware. This throws off streak artifact which obscures much of the lower pelvis. The included lung bases demonstrate interstitial septal thickening and groundglass opacity. The heart is enlarged. The bones demonstrate a compression fracture deformity of the L2 vertebral body. There are also compression fracture deformities T7-T8, and large Schmorl's nodes at T11 and 12. 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 Bilateral nonobstructive renal calculi Left renal cyst Postsurgical changes of both hips and the right pelvis Basilar pulmonary interstitial septal thickening and groundglass opacity, may indicate pulmonary edema Mild cardiomegaly Multiple vertebral compression fractures, age indeterminate. Consider MRI for further evaluation if considered clinically relevant (2) Abdominal pain Assessment & Plan: Patient presented with abdominal distention and discomfort. No nausea vomiting fever chills. Significant leukocytosis. Abnormal labs. CT identified as above with large cystic mass ovarian origin. UTI Okay for diet from surgical standpoint IV fluids IV antibiotics Labs ordered Findings: Central abdominal hyperdensity presumably represents massive cystic mass described on recent CT scan. Bowel gas pattern is unremarkable, with moderate gas is seen in the ascending and transverse colon, moderate stool in the right-sided colon, no small bowel distention.. Surgical hardware is seen in the bilateral hips and femurs. Surgical hardware is also seen in the right side of the pelvis. There is an inferior vena cava filter. Impression: Central abdominal hyperdensity, consistent with large cystic mass described on recent CT scan No definite acute process We will follow with serial abdominal examinations No acute surgical mention recommend at this time Thank you for let me participate in patient's care (3) Decubitus skin ulcer Assessment & Plan: Pt presented on admission with multiple pressure injuries. DTPI noted to L buttocks. Base of wound is maroon and indurated with marginal erythema(L)(L)7cm x (W)4.3cm. Non-blanching erythema without induration or fluctuance noted to R buttocks (L) 8cm x (W)6.5cm.. R heel is boggy with non-blanching erythema. L heel is boggy with non-blanching erythema. Small dry callus noted to distal/lateral L foot .No other skin concerns noted. Wounds unlikely etiology of patient's sepsis. Tx.Plan: Apply Moisture Barrier Paste to R and L buttocks. Cover affected areas with Optifoam drsgs. Change every 3 days and prn. Apply Cavilon Skin Barrier to both heels. Cover each heel with Optifoam drsg. Change every 7 days and prn. Reposition at least every 2 hours or as tolerated. Off-load heels with pillow. Nutritional optimization when ready Thank you Alon Denise Jul 20, 2019 16:25
[2019-07-20 20:00] VITALS: BP 115/57
[2019-07-20] MEDS: Iron Sucrose 100 MG in NS 55 ML IV SCH (21:34)
[2019-07-21] VITALS: BP 141/56
[2019-07-21 04:00] VITALS: BP 122/61
[2019-07-21 06:37] LABS: HEMATOCRIT 27.2 % (37.0-47.0); HEMOGLOBIN 8.8 G/DL (12.0-16.0); MEAN CORPUSCULAR VOLUME 85 FL (80-99); PLATELET COUNT 920 K/UL (150-450); RED BLOOD COUNT 3.21 M/UL (4.20-5.40); RED CELL DISTRIBUTION WIDTH 13.9 % (11.6-14.8)
--- NOTE | 2019-07-21 06:44 | Hematology/Onc Progress Note ---
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 ovarian or gynecological primary --> apparently has had eval in the past --> imaging has been reviewed --> is on dnr/comfort care for this # Leukocytosis is related to underlying uti with septic shock in addition may be caused by malignancy --> wbc trend 48-->37->11-->40k --> on abx as per id --> smear has been reviewed --> lactic acid remains high --> ivf have been started --> remains on ertapenem # Anemia of chronic disease --> panel ordered and reviewed --> transfuse if hgb drops further, hgb 7.7-->8-->10-->9.2 # Thrombocytosis likely reactice --> 850-->919 # AMS (altered mental status) --> likely related to underlying uti --> on abx as per id # UTI (urinary tract infection) --> lactic > 3, UA + bacteria --> s/p abx # Sepsis # Dvt ppx lovenox Appreciate consultation and dw RN Subjective Constitutional: Denies: no symptoms, chills, fever, malaise, weakness, other Cardiovascular: Denies: no symptoms, chest pain, edema, irregular heart rate, lightheadedness, palpitations, syncope, other Genitourinary: Denies: no symptoms, burning, discharge, frequency, flank pain, hematuria, incontinence, pain, urgency, other Neurologic/Psychiatric: Denies: no symptoms, anxiety, depressed, emotional problems, headache, numbness, paresthesia, pre-existing deficit, seizure, tingling, tremors, weakness, other Allergies: Coded Allergies: PENICILLINS (Verified Allergy, Unknown, 07/17/19) tolerates Ceftriaxone Subjective 07/18: no events, no bleeding, no f/c, no night sweats 07/20: no major changes, still with abdominal pain, passing gas 07/21: awake, alert, wbc is higher as is plt count, on abx Objective Objective Current Medications Medications (Trade) Dose Ordered Sig/Ireen Route PRN Reason Start Time Stop Time Status Last Admin Dose Admin Acetaminophen (Tylenol) 650 mg Q8H PRN ORAL Mild Pain/Temp > 100.5 07/17/19 05:15 08/16/19 05:14 07/20/19 21:27 Albuterol/ Ipratropium (Albuterol/ Ipratropium) 3 ml Q4H PRN HHN Shortness of Breath 07/20/19 11:15 07/25/19 11:14 Aspirin (ASA) 81 mg DAILY ORAL 07/17/19 09:00 08/16/19 08:59 07/20/19 09:07 Citalopram Hydrobromide (celeXA) 20 mg DAILY ORAL 07/17/19 09:00 08/16/19 08:59 07/20/19 09:07 Dextrose/Sodium Chloride 1,000 ml @ 60 mls/hr [id number] IV 07/17/19 00:15 08/16/19 00:14 07/20/19 10:45 Diphenhydramine HCl (Benadryl) 25 mg Q12H PRN ORAL Itching 07/17/19 05:15 08/16/19 05:14 Docusate Sodium (Colace) 100 mg THREE TIMES A DAY ORAL 07/19/19 14:00 08/16/19 13:59 07/20/19 17:57 Enoxaparin Sodium (Lovenox) 40 mg DAILY SUBQ 07/17/19 09:00 08/16/19 08:59 07/20/19 09:14 Ertapenem 1 gm/ Sodium Chloride 55 ml @ 110 mls/hr Q24H IVPB 07/19/19 12:00 07/24/19 11:59 07/20/19 12:13 Mineral Oil (Mineral Oil) 30 ml DAILYPRN PRN ORAL Constipation 07/17/19 12:45 08/16/19 12:44 Ondansetron HCl (Zofran) 4 mg Q6H PRN IVP Nausea & Vomiting 07/17/19 20:30 08/16/19 18:29 Pantoprazole (Protonix) 40 mg DAILY@0630 ORAL 07/17/19 06:30 08/16/19 06:29 07/20/19 05:58 Polyethylene Glycol (Miralax) 17 gm DAILYPRN PRN ORAL Constipation 07/17/19 12:45 08/16/19 12:44 Pravastatin Sodium (Pravachol) 40 mg BEDTIME ORAL 07/17/19 21:00 08/16/19 20:59 07/20/19 21:27 Prochlorperazine (Compazine) 5 mg Q8H PRN IVP Nausea & Vomiting 07/17/19 20:30 08/16/19 20:29 Risperidone (RisperDAL) 0.5 mg DAILY ORAL 07/17/19 09:00 08/16/19 08:59 07/20/19 09:07 Simethicone (Mylicon) 125 mg Q8H PRN ORAL GAS PAIN 07/17/19 00:15 08/16/19 00:14 Sodium Phosphate (Fleet's Sodium Phosl Enema) 133 ml DAILYPRN PRN RECTAL Constipation 07/20/19 16:15 08/19/19 16:14 07/21/19 02:23 Zolpidem Tartrate (Ambien) 5 mg HSPRN PRN ORAL Insomnia 07/17/19 05:15 07/24/19 05:14 Last 24 Hour Vital Signs Date Time Temp Pulse Resp B/P (MAP) Pulse Ox O2 Delivery O2 Flow Rate FiO2 07/21/19 03:00 Room Air 07/21/19 00:00 98.1 90 18 141/56 (84) 94 07/20/19 21:57 98.2 07/20/19 20:16 Room Air 07/20/19 20:00 100.4 99 20 115/57 (76) 94 07/20/19 16:00 98.1 93 18 129/71 (90) 98 07/20/19 12:00 98.4 93 20 135/66 (89) 97 07/20/19 09:00 Room Air 07/20/19 08:00 98.5 94 20 130/62 (84) 96 07/20/19 04:00 98.6 94 21 129/59 (82) 95 07/20/19 00:00 98.7 85 17 136/53 (80) 94 07/19/19 21:30 99.7 07/19/19 20:25 Room Air 07/19/19 20:00 101.3 108 20 129/58 (81) 95 07/19/19 16:00 98.0 90 18 139/72 (94) 96 07/19/19 12:00 97.7 87 18 136/66 (89) 95 07/19/19 09:00 Room Air 07/19/19 08:00 97.8 73 18 143/70 (94) 100 07/19/19 08:00 99.5 73 20 97/58 (71) 100 Intake and Output 07/20/19 07/21/19 18:59 06:59 Intake Total 1375 ml 360 ml Output Total 600 ml 300 ml Balance 775 ml 60 ml Intake Oral 820 ml IV Total 555 ml 360 ml Output Urine Total 600 ml 300 ml # Bowel Movements 2 Labs Test 07/18/19 06:45 07/18/19 12:40 07/19/19 07:43 07/20/19 06:15 White Blood Count 10.5 K/UL (4.8-10.8) 37.5 K/UL (4.8-10.8) 40.7 K/UL (4.8-10.8) Red Blood Count 3.49 M/UL (4.20-5.40) 3.37 M/UL (4.20-5.40) 3.38 M/UL (4.20-5.40) Hemoglobin 10.0 G/DL (12.0-16.0) 9.2 G/DL (12.0-16.0) 9.2 G/DL (12.0-16.0) Hematocrit 29.8 % (37.0-47.0) 28.7 % (37.0-47.0) 28.7 % (37.0-47.0) Mean Corpuscular Volume 85 FL (80-99) 85 FL (80-99) 85 FL (80-99) Mean Corpuscular Hemoglobin 28.6 PG (27.0-31.0) 27.3 PG (27.0-31.0) 27.1 PG (27.0-31.0) Mean Corpuscular Hemoglobin Concent 33.5 G/DL (32.0-36.0) 32.1 G/DL (32.0-36.0) 32.0 G/DL (32.0-36.0) Red Cell Distribution Width 13.4 % (11.6-14.8) 13.9 % (11.6-14.8) 13.8 % (11.6-14.8) Platelet Count 233 K/UL (150-450) 850 K/UL (150-450) 919 K/UL (150-450) Mean Platelet Volume 5.9 FL (6.5-10.1) 4.6 FL (6.5-10.1) 4.6 FL (6.5-10.1) Neutrophils (%) (Auto) 64.1 % (45.0-75.0) % (45.0-75.0) % (45.0-75.0) Lymphocytes (%) (Auto) 20.8 % (20.0-45.0) % (20.0-45.0) % (20.0-45.0) Monocytes (%) (Auto) 10.5 % (1.0-10.0) % (1.0-10.0) % (1.0-10.0) Eosinophils (%) (Auto) 3.9 % (0.0-3.0) % (0.0-3.0) % (0.0-3.0) Basophils (%) (Auto) 0.7 % (0.0-2.0) % (0.0-2.0) % (0.0-2.0) Sodium Level 140 MMOL/L (136-145) 145 MMOL/L (136-145) 144 MMOL/L (136-145) 145 MMOL/L (136-145) Potassium Level 3.3 MMOL/L (3.5-5.1) 3.4 MMOL/L (3.5-5.1) 2.9 MMOL/L (3.5-5.1) 2.9 MMOL/L (3.5-5.1) Chloride Level 102 MMOL/L (98-107) 110 MMOL/L (98-107) 108 MMOL/L (98-107) 110 MMOL/L (98-107) Carbon Dioxide Level 27 MMOL/L (21-32) 27 MMOL/L (21-32) 28 MMOL/L (21-32) 25 MMOL/L (21-32) Anion Gap 11 mmol/L (5-15) 8 mmol/L (5-15) 8 mmol/L (5-15) 10 mmol/L (5-15) Blood Urea Nitrogen 39 mg/dL (7-18) 18 mg/dL (7-18) 15 mg/dL (7-18) 14 mg/dL (7-18) Creatinine 8.0 MG/DL (0.55-1.30) 0.6 MG/DL (0.55-1.30) 0.7 MG/DL (0.55-1.30) 0.6 MG/DL (0.55-1.30) Estimat Glomerular Filtration Rate mL/min (>60) mL/min (>60) mL/min (>60) mL/min (>60) Glucose Level 90 MG/DL (74-106) 117 MG/DL (74-106) 108 MG/DL (74-106) 97 MG/DL (74-106) Calcium Level 8.6 MG/DL (8.5-10.1) 9.6 MG/DL (8.5-10.1) 8.9 MG/DL (8.5-10.1) 9.2 MG/DL (8.5-10.1) Total Bilirubin 0.4 MG/DL (0.2-1.0) Aspartate Amino Transf (AST/SGOT) 18 U/L (15-37) Alanine Aminotransferase (ALT/SGPT) 18 U/L (12-78) Alkaline Phosphatase 78 U/L (46-116) Total Protein 7.3 G/DL (6.4-8.2) Albumin 3.3 G/DL (3.4-5.0) Globulin 4.0 g/dL Albumin/Globulin Ratio 0.8 (1.0-2.7) Differential Total Cells Counted 100 100 Neutrophils % (Manual) 90 % (45-75) 84 % (45-75) Lymphocytes % (Manual) 4 % (20-45) 8 % (20-45) Monocytes % (Manual) 4 % (1-10) 8 % (1-10) Eosinophils % (Manual) 1 % (0-3) 0 % (0-3) Basophils % (Manual) 1 % (0-2) 0 % (0-2) Band Neutrophils 0 % (0-8) 0 % (0-8) Platelet Estimate Increased Increased Platelet Morphology Normal Normal Hypochromasia 2+ 2+ Anisocytosis 1+ 1+ Spherocytes 1+ Hemoglobin A1c 5.2 % (4.3-6.0) Uric Acid 1.9 MG/DL (2.6-7.2) Phosphorus Level 2.6 MG/DL (2.5-4.9) Magnesium Level 1.9 MG/DL (1.8-2.4) Gamma Glutamyl Transpeptidase 264 U/L (5-85) C-Reactive Protein, Quantitative 22.8 mg/dL (0.00-0.90) Pro-B-Type Natriuretic Peptide 3913 pg/mL (0-125) Triglycerides Level 41 MG/DL (30-150) Cholesterol Level 55 MG/DL (< 200) LDL Cholesterol 21 mg/dL (<100) HDL Cholesterol 25 MG/DL (40-60) Cholesterol/HDL Ratio 2.2 (3.3-4.4) Folate 18.2 NG/ML (8.6-58.9) Thyroid Stimulating Hormone (TSH) 3.556 uiU/mL (0.358-3.740) Test 07/21/19 05:15 Height (Feet): 5 Height (Inches): 6.00 Weight (Pounds): 158 Objective PE General: cachetic, lethargic, sleepy difficult to wake up Respiratory: ctab, no cwr Cardiovascular: regular rate, rhythm, no edema Gastrointestinal: somewhat distended, no significant pain Musculoskeletal: back normal Neurologic: other - nonvebral Lymphatic: normal inspection Gonzalo Frankel MD Jul 21, 2019 06:44
[2019-07-21 07:04] LABS: ANION GAP 7 mmol/L (5-15); BLOOD UREA NITROGEN 16 mg/dL (7-18); CARBON DIOXIDE 28 MMOL/L (21-32); CHLORIDE 108 MMOL/L (98-107); CREATININE 0.7 MG/DL (0.55-1.30); POTASSIUM 3.4 MMOL/L (3.5-5.1); SODIUM 143 MMOL/L (136-145)
[2019-07-21 07:05] LABS: WHITE BLOOD COUNT 42.9 K/UL (4.8-10.8)
[2019-07-21 08:00] VITALS: BP 151/73
[2019-07-21] MEDS: Aspirin Baby 81mg ORAL SCH (08:12)
[2019-07-21] MEDS: Citalopram Hydrobromide 10mg Tab ORAL SCH (08:13)
[2019-07-21] MEDS: Docusate 100mg/10ml Liq ORAL SCH ×3 (08:13→18:00)
[2019-07-21] MEDS: Enoxaparin 40mg Inj SUBQ SCH (08:14)
--- NOTE | 2019-07-21 09:16 | General Progress Note ---
Assessment/Plan Problem List: (1) Abdominal mass ICD Codes: R19.00 - Intra-abdominal and pelvic swelling, mass and lump, unspecified site SNOMED: 672835762 Qualifiers: Qualified Codes: R19.00 - Intra-abdominal and pelvic swelling, mass and lump , unspecified site (2) Sepsis ICD Codes: A41.9 - Sepsis, unspecified organism SNOMED: 94712221 Qualifiers: Qualified Codes: A41.9 - Sepsis, unspecified organism (3) UTI (urinary tract infection) ICD Codes: N39.0 - Urinary tract infection, site not specified SNOMED: 73282404 Qualifiers: Qualified Codes: N39.0 - Urinary tract infection, site not specified (4) Fecal impaction ICD Codes: K56.41 - Fecal impaction SNOMED: 21772423 (5) Pelvic mass ICD Codes: R19.00 - Intra-abdominal and pelvic swelling, mass and lump, unspecified site SNOMED: 00079425 (6) Abdominal pain ICD Codes: R10.9 - Unspecified abdominal pain SNOMED: 05516844 (7) AMS (altered mental status) ICD Codes: R41.82 - Altered mental status, unspecified SNOMED: 878552544 Qualifiers: Qualified Codes: R41.82 - Altered mental status, unspecified (8) Decubitus skin ulcer ICD Codes: L89.90 - Pressure ulcer of unspecified site, unspecified stage SNOMED: 893623513 Status: unchanged Assessment/Plan: pt diet wound care abx gi f/u cbc bmp am dc plan snf Subjective Constitutional: Reports: weakness Allergies: Coded Allergies: PENICILLINS (Verified Allergy, Unknown, 07/17/19) tolerates Ceftriaxone All Systems: reviewed and negative except above Subjective sleepy calm Objective Last 24 Hour Vital Signs Date Time Temp Pulse Resp B/P (MAP) Pulse Ox O2 Delivery O2 Flow Rate FiO2 07/21/19 08:00 98.6 96 20 151/73 (99) 99 07/21/19 04:00 97.3 91 20 122/61 (81) 96 07/21/19 03:00 Room Air 07/21/19 00:00 98.1 90 18 141/56 (84) 94 07/20/19 21:57 98.2 07/20/19 20:16 Room Air 07/20/19 20:00 100.4 99 20 115/57 (76) 94 07/20/19 16:00 98.1 93 18 129/71 (90) 98 07/20/19 12:00 98.4 93 20 135/66 (89) 97 Intake and Output 07/20/19 07/21/19 19:00 07:00 Intake Total 1435 ml 300 ml Output Total 600 ml 300 ml Balance 835 ml 0 ml Intake Oral 820 ml IV Total 615 ml 300 ml Output Urine Total 600 ml 300 ml # Bowel Movements 2 Laboratory Tests 07/21/19 05:15: White Blood Count 42.9*H, Red Blood Count 3.21L, Hemoglobin 8.8L, Hematocrit 27.2L, Mean Corpuscular Volume 85, Mean Corpuscular Hemoglobin 27.3, Mean Corpuscular Hemoglobin Concent 32.2, Red Cell Distribution Width 13.9, Platelet Count 920H, Mean Platelet Volume 4.6L, Neutrophils (%) (Auto) , Lymphocytes (%) (Auto) , Monocytes (%) (Auto) , Eosinophils (%) (Auto) , Basophils (%) (Auto) , Neutrophils % (Manual) [Pending], Lymphocytes % (Manual) [Pending], Platelet Estimate [Pending], Platelet Morphology [Pending], Sodium Level 143, Potassium Level 3.4L, Chloride Level 108H, Carbon Dioxide Level 28, Anion Gap 7, Blood Urea Nitrogen 16, Creatinine 0.7, Estimat Glomerular Filtration Rate , Glucose Level 111H, Calcium Level 9.0 Height (Feet): 5 Height (Inches): 6.00 Weight (Pounds): 158 General Appearance: lethargic EENT: normal ENT inspection Neck: normal alignment Cardiovascular: normal peripheral pulses, normal rate, regular rhythm Respiratory/Chest: chest wall non-tender, lungs clear, normal breath sounds Abdomen: normal bowel sounds, non tender, soft Extremities: normal inspection Edema: no edema noted Arm (L), no edema noted Arm (R), no edema noted Leg (L), no edema noted Leg (R), no edema noted Pedal (L), no edema noted Pedal (R), no edema noted Generalized Neurologic: motor weakness Skin: normal pigmentation, warm/dry Allen Harris DO Jul 21, 2019 09:16
--- NOTE | 2019-07-21 10:34 | Nephrology Progress Note ---
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 Bilateral nonobstructive renal calculi Left renal cyst Postsurgical changes of both hips and the right pelvis Basilar pulmonary interstitial septal thickening and groundglass opacity, may indicate pulmonary edema Mild cardiomegaly Multiple vertebral compression fractures, age indeterminate. Consider MRI for further evaluation if considered clinically relevant Subjective ROS Limited/Unobtainable: No Constitutional: Reports: malaise, weakness Objective Objective Last 24 Hour Vital Signs Date Time Temp Pulse Resp B/P (MAP) Pulse Ox O2 Delivery O2 Flow Rate FiO2 07/21/19 09:00 Room Air 07/21/19 08:00 98.6 96 20 151/73 (99) 99 07/21/19 04:00 97.3 91 20 122/61 (81) 96 07/21/19 03:00 Room Air 07/21/19 00:00 98.1 90 18 141/56 (84) 94 07/20/19 21:57 98.2 07/20/19 20:16 Room Air 07/20/19 20:00 100.4 99 20 115/57 (76) 94 07/20/19 16:00 98.1 93 18 129/71 (90) 98 07/20/19 12:00 98.4 93 20 135/66 (89) 97 Intake and Output 07/20/19 07/21/19 19:00 07:00 Intake Total 1435 ml 300 ml Output Total 600 ml 300 ml Balance 835 ml 0 ml Intake Oral 820 ml IV Total 615 ml 300 ml Output Urine Total 600 ml 300 ml # Bowel Movements 2 Laboratory Tests 07/21/19 05:15: White Blood Count 42.9*H, Red Blood Count 3.21L, Hemoglobin 8.8L, Hematocrit 27.2L, Mean Corpuscular Volume 85, Mean Corpuscular Hemoglobin 27.3, Mean Corpuscular Hemoglobin Concent 32.2, Red Cell Distribution Width 13.9, Platelet Count 920H, Mean Platelet Volume 4.6L, Neutrophils (%) (Auto) , Lymphocytes (%) (Auto) , Monocytes (%) (Auto) , Eosinophils (%) (Auto) , Basophils (%) (Auto) , Neutrophils % (Manual) [Pending], Lymphocytes % (Manual) [Pending], Platelet Estimate [Pending], Platelet Morphology [Pending], Sodium Level 143, Potassium Level 3.4L, Chloride Level 108H, Carbon Dioxide Level 28, Anion Gap 7, Blood Urea Nitrogen 16, Creatinine 0.7, Estimat Glomerular Filtration Rate , Glucose Level 111H, Calcium Level 9.0 Height (Feet): 5 Height (Inches): 6.00 Weight (Pounds): 158 General Appearance: no apparent distress, lethargic Cardiovascular: tachycardia Respiratory/Chest: decreased breath sounds Abdomen: distended Shekhar Jimenez MD Jul 21, 2019 10:34
[2019-07-21] MEDS: Ertapenem 1 GM in NS 55 ML IVPB SCH (11:05)
--- NOTE | 2019-07-21 11:57 | Infectious Diseases Prog Note ---
Assessment/Plan Assessment/Plan Assessment: Sepsis 2ry to UTI -u/a wbc tnct, nit +, leuk +3; ucx >100k ESBL E.coli Low grade fever Hyperleukocytosis; worsened; combination of malignancy and UTI- ?superinfected mass CARROLL (Cr jumped from 0.7 to 8)- repeat BMP was 0.6; value of 8 not real -Renal US: Negative for hydronephrosis. Note that hydronephrosis described on recent CT scan is not evident. Nonobstructive right lower pole calyceal calculus, also described on prior CT. And 2 bladder with a suprapubic catheter, also previously described. Incidental finding left renal cyst. 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 Inferior vena cava filter, compressed by the mass and demonstrating a broken off strut. Evidence of rectal fecal impaction. 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 Bilateral nonobstructive renal calculi. Left renal cyst. Postsurgical changes of both hips and the right pelvis. Basilar pulmonary interstitial septal thickening and groundglass opacity, may indicate pulmonary edema. Mild cardiomegaly. Multiple vertebral compression fractures, age indeterminate. COPD GERD PVD Dementia Plan: -Switch Ertapenem #3 to Meropenem for broader coverage -add empiric IV vancomycin given worsenign WBC -12/7 SP Ceftriaxone #4 -f/u cx -Monitor CBC/CMP, temperatures -aspiration precautions -heme onc f.u -CXR -Cdiff if diarrhea Thank you for this consultation. Will continue to follow along with you. Discussed with RN Subjective Allergies: Coded Allergies: PENICILLINS (Verified Allergy, Unknown, 07/17/19) tolerates Ceftriaxone Subjective Tm 100.4 wbc increased; on the 40s now Objective Vital Signs Last 24 Hour Vital Signs Date Time Temp Pulse Resp B/P (MAP) Pulse Ox O2 Delivery O2 Flow Rate FiO2 07/21/19 09:00 Room Air 07/21/19 08:00 98.6 96 20 151/73 (99) 99 07/21/19 04:00 97.3 91 20 122/61 (81) 96 12/9/19 03:00 Room Air 07/21/19 00:00 98.1 90 18 141/56 (84) 94 07/20/19 21:57 98.2 07/20/19 20:16 Room Air 07/20/19 20:00 100.4 99 20 115/57 (76) 94 07/20/19 16:00 98.1 93 18 129/71 (90) 98 07/20/19 12:00 98.4 93 20 135/66 (89) 97 Height (Feet): 5 Height (Inches): 6.00 Weight (Pounds): 158 Objective General Appearance: cachetic, lethargic Head: normocephalic Eyes: bilateral eye normal inspection, bilateral eye PERRL ENT: normal ENT inspection Neck: normal inspection Respiratory: chest non-tender, lungs clear, normal breath sounds, speaking full sentences Cardiovascular #1: regular rate, rhythm, no edema Gastrointestinal: normal bowel sounds, non tender, soft, no guarding, no rebound, distended Neurologic: other - nonvebral Skin: other - see nursing skin notes Laboratory Tests Test 07/21/19 05:15 White Blood Count 42.9 K/UL (4.8-10.8) *H Red Blood Count 3.21 M/UL (4.20-5.40) L Hemoglobin 8.8 G/DL (12.0-16.0) L Hematocrit 27.2 % (37.0-47.0) L Mean Corpuscular Volume 85 FL (80-99) Mean Corpuscular Hemoglobin 27.3 PG (27.0-31.0) Mean Corpuscular Hemoglobin Concent 32.2 G/DL (32.0-36.0) Red Cell Distribution Width 13.9 % (11.6-14.8) Platelet Count 920 K/UL (150-450) H Mean Platelet Volume 4.6 FL (6.5-10.1) L Neutrophils (%) (Auto) % (45.0-75.0) Lymphocytes (%) (Auto) % (20.0-45.0) Monocytes (%) (Auto) % (1.0-10.0) Eosinophils (%) (Auto) % (0.0-3.0) Basophils (%) (Auto) % (0.0-2.0) Differential Total Cells Counted 100 Neutrophils % (Manual) 87 % (45-75) H Lymphocytes % (Manual) 5 % (20-45) L Monocytes % (Manual) 3 % (1-10) Eosinophils % (Manual) 0 % (0-3) Basophils % (Manual) 0 % (0-2) Band Neutrophils 5 % (0-8) Platelet Estimate Increased H Platelet Morphology Normal Red Blood Cell Morphology Normal Sodium Level 143 MMOL/L (136-145) Potassium Level 3.4 MMOL/L (3.5-5.1) L Chloride Level 108 MMOL/L (98-107) H Carbon Dioxide Level 28 MMOL/L (21-32) Anion Gap 7 mmol/L (5-15) Blood Urea Nitrogen 16 mg/dL (7-18) Creatinine 0.7 MG/DL (0.55-1.30) Estimat Glomerular Filtration Rate mL/min (>60) Glucose Level 111 MG/DL (74-106) H Calcium Level 9.0 MG/DL (8.5-10.1) Current Medications Medications (Trade) Dose Ordered Sig/Irene Route PRN Reason Start Time Stop Time Status Last Admin Dose Admin Acetaminophen (Tylenol) 650 mg Q8H PRN ORAL Mild Pain/Temp > 100.5 07/17/19 05:15 08/16/19 05:14 07/20/19 21:27 Albuterol/ Ipratropium (Albuterol/ Ipratropium) 3 ml Q4H PRN HHN Shortness of Breath 07/20/19 11:15 07/25/19 11:14 Aspirin (ASA) 81 mg DAILY ORAL 07/17/19 09:00 08/16/19 08:59 07/21/19 08:12 Citalopram Hydrobromide (celeXA) 20 mg DAILY ORAL 07/17/19 09:00 08/16/19 08:59 07/21/19 08:13 Dextrose/Sodium Chloride 1,000 ml @ 60 mls/hr [id number] IV 07/17/19 00:15 08/16/19 00:14 07/20/19 10:45 Diphenhydramine HCl (Benadryl) 25 mg Q12H PRN ORAL Itching 07/17/19 05:15 08/16/19 05:14 Docusate Sodium (Colace) 100 mg THREE TIMES A DAY ORAL 07/19/19 14:00 08/16/19 13:59 07/21/19 08:13 Enoxaparin Sodium (Lovenox) 40 mg DAILY SUBQ 07/17/19 09:00 08/16/19 08:59 07/21/19 08:14 Ertapenem 1 gm/ Sodium Chloride 55 ml @ 110 mls/hr Q24H IVPB 07/19/19 12:00 07/24/19 11:59 07/21/19 11:05 Mineral Oil (Mineral Oil) 30 ml DAILYPRN PRN ORAL Constipation 07/17/19 12:45 08/16/19 12:44 Ondansetron HCl (Zofran) 4 mg Q6H PRN IVP Nausea & Vomiting 07/17/19 20:30 08/16/19 18:29 Pantoprazole (Protonix) 40 mg DAILY@0630 ORAL 07/17/19 06:30 08/16/19 06:29 07/20/19 05:58 Polyethylene Glycol (Miralax) 17 gm DAILYPRN PRN ORAL Constipation 07/17/19 12:45 08/16/19 12:44 Potassium Chloride 100 ml @ 100 mls/hr Q1HR IVPB 07/21/19 10:00 07/21/19 13:59 07/21/19 11:01 Pravastatin Sodium (Pravachol) 40 mg BEDTIME ORAL 07/17/19 21:00 08/16/19 20:59 07/20/19 21:27 Prochlorperazine (Compazine) 5 mg Q8H PRN IVP Nausea & Vomiting 07/17/19 20:30 08/16/19 20:29 Risperidone (RisperDAL) 0.5 mg DAILY ORAL 07/17/19 09:00 08/16/19 08:59 07/21/19 08:13 Simethicone (Mylicon) 125 mg Q8H PRN ORAL GAS PAIN 07/17/19 00:15 08/16/19 00:14 Sodium Phosphate (Fleet's Sodium Phosl Enema) 133 ml DAILYPRN PRN RECTAL Constipation 07/20/19 16:15 08/19/19 16:14 07/21/19 02:23 Zolpidem Tartrate (Ambien) 5 mg HSPRN PRN ORAL Insomnia 07/17/19 05:15 07/24/19 05:14 Shameka Pritchett M.D. Jul 21, 2019 11:57
[2019-07-21 12:00] VITALS: BP 129/78
--- NOTE | 2019-07-21 13:32 | Surgery Progress Note ---
Surgery Progress Note Subjective Additional Comments no acute events stable labs noted abd distended given enema had BM Objective Last 24 Hour Vital Signs Date Time Temp Pulse Resp B/P (MAP) Pulse Ox O2 Delivery O2 Flow Rate FiO2 07/21/19 12:00 98.1 92 18 129/78 (95) 95 07/21/19 09:00 Room Air 07/21/19 08:00 98.6 96 20 151/73 (99) 99 07/21/19 04:00 97.3 91 20 122/61 (81) 96 07/21/19 03:00 Room Air 07/21/19 00:00 98.1 90 18 141/56 (84) 94 07/20/19 21:57 98.2 07/20/19 20:16 Room Air 07/20/19 20:00 100.4 99 20 115/57 (76) 94 07/20/19 16:00 98.1 93 18 129/71 (90) 98 I&O Intake and Output 07/20/19 07/21/19 19:00 07:00 Intake Total 1435 ml 300 ml Output Total 600 ml 300 ml Balance 835 ml 0 ml Intake Oral 820 ml IV Total 615 ml 300 ml Output Urine Total 600 ml 300 ml # Bowel Movements 2 Dressing: other Wound: other Drains: other Cardiovascular: RSR Respiratory: clear Abdomen: soft, distended, non-tender, decreased bowel sounds Extremities: no cyanosis, other Laboratory Tests Test 07/21/19 05:15 White Blood Count 42.9 K/UL (4.8-10.8) *H Red Blood Count 3.21 M/UL (4.20-5.40) L Hemoglobin 8.8 G/DL (12.0-16.0) L Hematocrit 27.2 % (37.0-47.0) L Mean Corpuscular Volume 85 FL (80-99) Mean Corpuscular Hemoglobin 27.3 PG (27.0-31.0) Mean Corpuscular Hemoglobin Concent 32.2 G/DL (32.0-36.0) Red Cell Distribution Width 13.9 % (11.6-14.8) Platelet Count 920 K/UL (150-450) H Mean Platelet Volume 4.6 FL (6.5-10.1) L Neutrophils (%) (Auto) % (45.0-75.0) Lymphocytes (%) (Auto) % (20.0-45.0) Monocytes (%) (Auto) % (1.0-10.0) Eosinophils (%) (Auto) % (0.0-3.0) Basophils (%) (Auto) % (0.0-2.0) Differential Total Cells Counted 100 Neutrophils % (Manual) 87 % (45-75) H Lymphocytes % (Manual) 5 % (20-45) L Monocytes % (Manual) 3 % (1-10) Eosinophils % (Manual) 0 % (0-3) Basophils % (Manual) 0 % (0-2) Band Neutrophils 5 % (0-8) Platelet Estimate Increased H Platelet Morphology Normal Red Blood Cell Morphology Normal Sodium Level 143 MMOL/L (136-145) Potassium Level 3.4 MMOL/L (3.5-5.1) L Chloride Level 108 MMOL/L (98-107) H Carbon Dioxide Level 28 MMOL/L (21-32) Anion Gap 7 mmol/L (5-15) Blood Urea Nitrogen 16 mg/dL (7-18) Creatinine 0.7 MG/DL (0.55-1.30) Estimat Glomerular Filtration Rate mL/min (>60) Glucose Level 111 MG/DL (74-106) H Calcium Level 9.0 MG/DL (8.5-10.1) Plan Problems: (1) Abdominal mass Assessment & Plan: Findings: There is a massive mostly cystic with slight solid component septated mass occupying much of the pelvis and mid to lower abdomen. This measures 33 cm transverse by 14 cm AP by 24 cm craniocaudad. There is an inferior vena cava filter which appears compressed by the mass. It demonstrates a broken off strut that extends into the left common iliac vein. Inferior vena cava appears to be patent. The rectum is distended by feces, measures up to 9.5 cm in diameter. There is no evidence of colonic diverticulosis or diverticulitis. The appendix is not definitely visualized, but no findings to suggest acute appendicitis are evident. No free or loculated intraperitoneal gas or fluid. No small bowel distention. The liver, gallbladder, bile ducts, pancreas, spleen are all unremarkable. The the right adrenal is unremarkable. The left adrenal demonstrates a 2 cm mass which demonstrates nonspecific soft tissue attenuation. Right kidney demonstrates a 7 mm diameter lower pole calyceal calculus. Other smaller calculi are seen in the renal collecting systems bilaterally. There is a left renal cyst. There is mild bilateral hydronephrosis. The bladder is empty, contains a suprapubic catheter. There is bilateral hip and right posterior acetabular surgical hardware. This throws off streak artifact which obscures much of the lower pelvis. The included lung bases demonstrate interstitial septal thickening and groundglass opacity. The heart is enlarged. The bones demonstrate a compression fracture deformity of the L2 vertebral body. There are also compression fracture deformities T7-T8, and large Schmorl's nodes at T11 and 12. 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 Bilateral nonobstructive renal calculi Left renal cyst Postsurgical changes of both hips and the right pelvis Basilar pulmonary interstitial septal thickening and groundglass opacity, may indicate pulmonary edema Mild cardiomegaly Multiple vertebral compression fractures, age indeterminate. Consider MRI for further evaluation if considered clinically relevant (2) Abdominal pain Assessment & Plan: Patient presented with abdominal distention and discomfort. No nausea vomiting fever chills. Significant leukocytosis. Abnormal labs. CT identified as above with large cystic mass ovarian origin. UTI Okay for diet from surgical standpoint IV fluids IV antibiotics Labs ordered Findings: Central abdominal hyperdensity presumably represents massive cystic mass described on recent CT scan. Bowel gas pattern is unremarkable, with moderate gas is seen in the ascending and transverse colon, moderate stool in the right-sided colon, no small bowel distention.. Surgical hardware is seen in the bilateral hips and femurs. Surgical hardware is also seen in the right side of the pelvis. There is an inferior vena cava filter. Impression: Central abdominal hyperdensity, consistent with large cystic mass described on recent CT scan No definite acute process We will follow with serial abdominal examinations No acute surgical mention recommend at this time Thank you for let me participate in patient's care (3) Decubitus skin ulcer Assessment & Plan: Pt presented on admission with multiple pressure injuries. DTPI noted to L buttocks. Base of wound is maroon and indurated with marginal erythema(L)(L)7cm x (W)4.3cm. Non-blanching erythema without induration or fluctuance noted to R buttocks (L) 8cm x (W)6.5cm.. R heel is boggy with non-blanching erythema. L heel is boggy with non-blanching erythema. Small dry callus noted to distal/lateral L foot .No other skin concerns noted. Wounds unlikely etiology of patient's sepsis. Tx.Plan: Apply Moisture Barrier Paste to R and L buttocks. Cover affected areas with Optifoam drsgs. Change every 3 days and prn. Apply Cavilon Skin Barrier to both heels. Cover each heel with Optifoam drsg. Change every 7 days and prn. Reposition at least every 2 hours or as tolerated. Off-load heels with pillow. Nutritional optimization when ready Thank you Alon Denise Jul 21, 2019 13:32
[2019-07-21] MEDS: Meropenem 1 GM in NS 55 ML IVPB SCH ×2 (13:50→22:17)
[2019-07-21] MEDS: Vancomycin 750mg/D5W 275ml IVPB SCH ×2 (14:35)
[2019-07-21 16:00] VITALS: BP 135/61
--- NOTE | 2019-07-21 16:07 | Diagnostic Imaging Report ---
Indication: Cough Technique: One view of the chest Comparison: none Findings: The patient is rotated. The right. No definite acute infiltrates, effusions, or congestion. The heart size is probably normal. The aorta is tortuous and ectatic. Impression: Somewhat limited exam. No definite acute process
[2019-07-21 20:00] VITALS: BP 134/77
[2019-07-21] MEDS: D5 1/2NS 1,000 ML IV SCH (21:50)
[2019-07-22] VITALS: BP 120/61
[2019-07-22] MEDS: Vancomycin 750mg/D5W 275ml IVPB SCH ×2 (02:18)
[2019-07-22 04:00] VITALS: BP 129/61
[2019-07-22] MEDS: Meropenem 1 GM in NS 55 ML IVPB SCH ×2 (06:02→14:00)
--- NOTE | 2019-07-22 06:42 | Hematology/Onc Progress Note ---
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 ovarian or gynecological primary --> apparently has had eval in the past --> imaging has been reviewed --> is on dnr/comfort care for this # Leukocytosis is related to underlying uti with septic shock in addition may be caused by malignancy --> wbc trend 48-->37->11-->40k-->43k --> on abx as per id --> smear has been reviewed --> lactic acid remains high --> ivf have been started --> remains on ertapenem # Anemia of chronic disease --> panel ordered and reviewed --> transfuse if hgb drops further, hgb 7.7-->8-->10-->9.2-->8.8 # Thrombocytosis likely reactice --> 850-->919-->920 --> smear has been reviewed --> may be due to superinfected mass # AMS (altered mental status) --> likely related to underlying uti --> on abx as per id # UTI (urinary tract infection) --> lactic > 3, UA + bacteria --> s/p abx # Sepsis # Dvt ppx lovenox Appreciate consultation and dw RN Subjective Constitutional: Denies: no symptoms, chills, fever, malaise, weakness, other HEENT: Denies: no symptoms, eye pain, blurred vision, tearing, double vision, ear pain, ear discharge, nose pain, nose congestion, throat pain, throat swelling, mouth pain, mouth swelling, other Cardiovascular: Denies: no symptoms, chest pain, edema, irregular heart rate, lightheadedness, palpitations, syncope, other Respiratory: Denies: no symptoms, cough, shortness of breath, SOB with excertion, SOB at rest, sputum, wheezing, other Gastrointestinal/Abdominal: Denies: no symptoms, abdomen distended, abdominal pain, black stools, tarry stools, blood in stool, constipated, diarrhea, difficulty swallowing, nausea, poor appetite, poor fluid intake, rectal bleeding , vomiting, other Genitourinary: Denies: no symptoms, burning, discharge, frequency, flank pain, hematuria, incontinence, pain, urgency, other Neurologic/Psychiatric: Denies: no symptoms, anxiety, depressed, emotional problems, headache, numbness, paresthesia, pre-existing deficit, seizure, tingling, tremors, weakness, other Allergies: Coded Allergies: PENICILLINS (Verified Allergy, Unknown, 07/17/19) tolerates Ceftriaxone Subjective 07/18: no events, no bleeding, no f/c, no night sweats 07/20: no major changes, still with abdominal pain, passing gas 07/21: awake, alert, wbc is higher as is plt count, on abx 07/22: wbc remains high, with suprapub catheter in place, no night sweats Objective Objective Current Medications Medications (Trade) Dose Ordered Sig/Irene Route PRN Reason Start Time Stop Time Status Last Admin Dose Admin Acetaminophen (Tylenol) 650 mg Q8H PRN ORAL Mild Pain/Temp > 100.5 07/17/19 05:15 08/16/19 05:14 07/21/19 21:56 Albuterol/ Ipratropium (Albuterol/ Ipratropium) 3 ml Q4H PRN HHN Shortness of Breath 07/20/19 11:15 07/25/19 11:14 07/22/19 01:27 Aspirin (ASA) 81 mg DAILY ORAL 07/17/19 09:00 08/16/19 08:59 07/21/19 08:12 Citalopram Hydrobromide (celeXA) 20 mg DAILY ORAL 07/17/19 09:00 08/16/19 08:59 07/21/19 08:13 Dextrose/Sodium Chloride 1,000 ml @ 60 mls/hr [id number] IV 07/17/19 00:15 08/16/19 00:14 07/21/19 21:50 Diphenhydramine HCl (Benadryl) 25 mg Q12H PRN ORAL Itching 07/17/19 05:15 08/16/19 05:14 Docusate Sodium (Colace) 100 mg THREE TIMES A DAY ORAL 07/19/19 14:00 08/16/19 13:59 07/21/19 12:42 Enoxaparin Sodium (Lovenox) 40 mg DAILY SUBQ 07/17/19 09:00 08/16/19 08:59 07/21/19 08:14 Meropenem 1 gm/ Sodium Chloride 55 ml @ 110 mls/hr Q8HR IVPB 07/21/19 14:00 07/26/19 13:59 07/22/19 06:02 Mineral Oil (Mineral Oil) 30 ml DAILYPRN PRN ORAL Constipation 07/17/19 12:45 08/16/19 12:44 Ondansetron HCl (Zofran) 4 mg Q6H PRN IVP Nausea & Vomiting 07/17/19 20:30 08/16/19 18:29 Pantoprazole (Protonix) 40 mg DAILY@0630 ORAL 07/17/19 06:30 08/16/19 06:29 07/22/19 06:03 Polyethylene Glycol (Miralax) 17 gm DAILYPRN PRN ORAL Constipation 07/17/19 12:45 08/16/19 12:44 Pravastatin Sodium (Pravachol) 40 mg BEDTIME ORAL 07/17/19 21:00 08/16/19 20:59 07/21/19 21:54 Prochlorperazine (Compazine) 5 mg Q8H PRN IVP Nausea & Vomiting 07/17/19 20:30 08/16/19 20:29 Risperidone (RisperDAL) 0.5 mg DAILY ORAL 07/17/19 09:00 08/16/19 08:59 07/21/19 08:13 Simethicone (Mylicon) 125 mg Q8H PRN ORAL GAS PAIN 07/17/19 00:15 08/16/19 00:14 Sodium Phosphate (Fleet's Sodium Phosl Enema) 133 ml DAILYPRN PRN RECTAL Constipation 07/20/19 16:15 08/19/19 16:14 07/21/19 02:23 Vancomycin HCl (Vanco rx to dose) 1 ea DAILY PRN MISC Per rx protocol 07/21/19 12:00 08/20/19 11:59 Vancomycin HCl 750 mg/Dextrose 275 ml @ 183.333 mls/hr Q12HR@0300,1500 IVPB 07/21/19 15:00 07/26/19 14:59 07/22/19 02:18 Zolpidem Tartrate (Ambien) 5 mg HSPRN PRN ORAL Insomnia 07/17/19 05:15 07/24/19 05:14 Last 24 Hour Vital Signs Date Time Temp Pulse Resp B/P (MAP) Pulse Ox O2 Delivery O2 Flow Rate FiO2 07/22/19 04:00 98.2 81 20 129/61 (83) 96 07/22/19 01:28 93 18 99 Room Air 21 92 18 98 07/22/19 01:27 92 18 98 Room Air 21 07/22/19 00:00 98.7 103 20 120/61 (80) 93 07/21/19 22:26 99.1 07/21/19 22:25 99.1 106 07/21/19 20:22 Room Air 07/21/19 20:00 100.6 113 22 134/77 (96) 92 07/21/19 16:00 98.7 95 18 135/61 (85) 96 07/21/19 12:00 98.1 92 18 129/78 (95) 95 07/21/19 09:00 Room Air 07/21/19 08:00 98.6 96 20 151/73 (99) 99 07/21/19 04:00 97.3 91 20 122/61 (81) 96 07/21/19 03:00 Room Air 07/21/19 00:00 98.1 90 18 141/56 (84) 94 07/20/19 20:16 Room Air 07/20/19 20:00 100.4 99 20 115/57 (76) 94 07/20/19 16:00 98.1 93 18 129/71 (90) 98 07/20/19 12:00 98.4 93 20 135/66 (89) 97 07/20/19 09:00 Room Air 07/20/19 08:00 98.5 94 20 130/62 (84) 96 Intake and Output 07/21/19 07/22/19 18:59 06:59 Intake Total 220 ml Output Total 1500 ml 250 ml Balance -1280 ml -250 ml Intake Oral 220 ml Output Urine Total 1500 ml 250 ml # Voids 1 Labs Test 07/19/19 07:43 07/20/19 06:15 07/21/19 05:15 07/22/19 06:00 White Blood Count 37.5 K/UL (4.8-10.8) 40.7 K/UL (4.8-10.8) 42.9 K/UL (4.8-10.8) Red Blood Count 3.37 M/UL (4.20-5.40) 3.38 M/UL (4.20-5.40) 3.21 M/UL (4.20-5.40) Hemoglobin 9.2 G/DL (12.0-16.0) 9.2 G/DL (12.0-16.0) 8.8 G/DL (12.0-16.0) Hematocrit 28.7 % (37.0-47.0) 28.7 % (37.0-47.0) 27.2 % (37.0-47.0) Mean Corpuscular Volume 85 FL (80-99) 85 FL (80-99) 85 FL (80-99) Mean Corpuscular Hemoglobin 27.3 PG (27.0-31.0) 27.1 PG (27.0-31.0) 27.3 PG (27.0-31.0) Mean Corpuscular Hemoglobin Concent 32.1 G/DL (32.0-36.0) 32.0 G/DL (32.0-36.0) 32.2 G/DL (32.0-36.0) Red Cell Distribution Width 13.9 % (11.6-14.8) 13.8 % (11.6-14.8) 13.9 % (11.6-14.8) Platelet Count 850 K/UL (150-450) 919 K/UL (150-450) 920 K/UL (150-450) Mean Platelet Volume 4.6 FL (6.5-10.1) 4.6 FL (6.5-10.1) 4.6 FL (6.5-10.1) Neutrophils (%) (Auto) % (45.0-75.0) % (45.0-75.0) % (45.0-75.0) Lymphocytes (%) (Auto) % (20.0-45.0) % (20.0-45.0) % (20.0-45.0) Monocytes (%) (Auto) % (1.0-10.0) % (1.0-10.0) % (1.0-10.0) Eosinophils (%) (Auto) % (0.0-3.0) % (0.0-3.0) % (0.0-3.0) Basophils (%) (Auto) % (0.0-2.0) % (0.0-2.0) % (0.0-2.0) Differential Total Cells Counted 100 100 100 Neutrophils % (Manual) 90 % (45-75) 84 % (45-75) 87 % (45-75) Lymphocytes % (Manual) 4 % (20-45) 8 % (20-45) 5 % (20-45) Monocytes % (Manual) 4 % (1-10) 8 % (1-10) 3 % (1-10) Eosinophils % (Manual) 1 % (0-3) 0 % (0-3) 0 % (0-3) Basophils % (Manual) 1 % (0-2) 0 % (0-2) 0 % (0-2) Band Neutrophils 0 % (0-8) 0 % (0-8) 5 % (0-8) Platelet Estimate Increased Increased Increased Platelet Morphology Normal Normal Normal Hypochromasia 2+ 2+ Anisocytosis 1+ 1+ Sodium Level 144 MMOL/L (136-145) 145 MMOL/L (136-145) 143 MMOL/L (136-145) Potassium Level 2.9 MMOL/L (3.5-5.1) 2.9 MMOL/L (3.5-5.1) 3.4 MMOL/L (3.5-5.1) Chloride Level 108 MMOL/L (98-107) 110 MMOL/L (98-107) 108 MMOL/L (98-107) Carbon Dioxide Level 28 MMOL/L (21-32) 25 MMOL/L (21-32) 28 MMOL/L (21-32) Anion Gap 8 mmol/L (5-15) 10 mmol/L (5-15) 7 mmol/L (5-15) Blood Urea Nitrogen 15 mg/dL (7-18) 14 mg/dL (7-18) 16 mg/dL (7-18) Creatinine 0.7 MG/DL (0.55-1.30) 0.6 MG/DL (0.55-1.30) 0.7 MG/DL (0.55-1.30) Estimat Glomerular Filtration Rate mL/min (>60) mL/min (>60) mL/min (>60) Glucose Level 108 MG/DL (74-106) 97 MG/DL (74-106) 111 MG/DL (74-106) Calcium Level 8.9 MG/DL (8.5-10.1) 9.2 MG/DL (8.5-10.1) 9.0 MG/DL (8.5-10.1) Spherocytes 1+ Hemoglobin A1c 5.2 % (4.3-6.0) Uric Acid 1.9 MG/DL (2.6-7.2) Phosphorus Level 2.6 MG/DL (2.5-4.9) Magnesium Level 1.9 MG/DL (1.8-2.4) Gamma Glutamyl Transpeptidase 264 U/L (5-85) C-Reactive Protein, Quantitative 22.8 mg/dL (0.00-0.90) Pro-B-Type Natriuretic Peptide 3913 pg/mL (0-125) Triglycerides Level 41 MG/DL (30-150) Cholesterol Level 55 MG/DL (< 200) LDL Cholesterol 21 mg/dL (<100) HDL Cholesterol 25 MG/DL (40-60) Cholesterol/HDL Ratio 2.2 (3.3-4.4) Folate 18.2 NG/ML (8.6-58.9) Thyroid Stimulating Hormone (TSH) 3.556 uiU/mL (0.358-3.740) Red Blood Cell Morphology Normal Height (Feet): 5 Height (Inches): 6.00 Weight (Pounds): 158 Objective PE General: cachetic, lethargic, sleepy difficult to wake up Respiratory: ctab, no cwr Cardiovascular: regular rate, rhythm, no edema Gastrointestinal: somewhat distended, no significant pain Musculoskeletal: back normal ++ suprapubic catheter Neurologic: other - nonvebral Lymphatic: normal inspection Gonzalo Frankel MD Jul 22, 2019 06:42
[2019-07-22 07:09] LABS: ANION GAP 9 mmol/L (5-15); BLOOD UREA NITROGEN 16 mg/dL (7-18); CALCIUM 9.5 MG/DL (8.5-10.1); CARBON DIOXIDE 25 MMOL/L (21-32); CHLORIDE 107 MMOL/L (98-107); CREATININE 0.7 MG/DL (0.55-1.30); POTASSIUM 3.6 MMOL/L (3.5-5.1); SODIUM 141 MMOL/L (136-145)
[2019-07-22 08:00] VITALS: BP 142/78
[2019-07-22 08:27] LABS: RED BLOOD COUNT 3.34 M/UL (4.20-5.40); WHITE BLOOD COUNT 47.9 K/UL (4.8-10.8)
[2019-07-22 08:28] LABS: HEMATOCRIT 28.3 % (37.0-47.0); MEAN CORPUSCULAR VOLUME 85 FL (80-99); PLATELET COUNT 941 K/UL (150-450); RED CELL DISTRIBUTION WIDTH 14.3 % (11.6-14.8)
[2019-07-22] MEDS: Docusate 100mg/10ml Liq ORAL SCH ×2 (09:13→13:00)
[2019-07-22] MEDS: Citalopram Hydrobromide 10mg Tab ORAL SCH (09:13)
[2019-07-22] MEDS: Aspirin Baby 81mg ORAL SCH (09:13)
[2019-07-22] MEDS: Enoxaparin 40mg Inj SUBQ SCH (10:06)
--- NOTE | 2019-07-22 11:03 | Nephrology Progress Note ---
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 Bilateral nonobstructive renal calculi Left renal cyst Postsurgical changes of both hips and the right pelvis Basilar pulmonary interstitial septal thickening and groundglass opacity, may indicate pulmonary edema Mild cardiomegaly Multiple vertebral compression fractures, age indeterminate. Consider MRI for further evaluation if considered clinically relevant Subjective ROS Limited/Unobtainable: No Constitutional: Reports: malaise, weakness Objective Objective Last 24 Hour Vital Signs Date Time Temp Pulse Resp B/P (MAP) Pulse Ox O2 Delivery O2 Flow Rate FiO2 07/22/19 08:00 98.0 92 20 142/78 (99) 92 07/22/19 04:00 98.2 81 20 129/61 (83) 96 07/22/19 01:28 93 18 99 Room Air 21 92 18 98 07/22/19 01:27 92 18 98 Room Air 21 07/22/19 00:00 98.7 103 20 120/61 (80) 93 07/21/19 22:26 99.1 07/21/19 22:25 99.1 106 07/21/19 20:22 Room Air 07/21/19 20:00 100.6 113 22 134/77 (96) 92 07/21/19 16:00 98.7 95 18 135/61 (85) 96 07/21/19 12:00 98.1 92 18 129/78 (95) 95 Intake and Output 07/21/19 07/22/19 18:59 06:59 Intake Total 220 ml Output Total 1500 ml 250 ml Balance -1280 ml -250 ml Intake Oral 220 ml Output Urine Total 1500 ml 250 ml # Voids 1 Laboratory Tests 07/22/19 06:00: White Blood Count 47.9*H, Red Blood Count 3.34L, Hemoglobin 9.0L, Hematocrit 28.3L, Mean Corpuscular Volume 85, Mean Corpuscular Hemoglobin 27.0, Mean Corpuscular Hemoglobin Concent 31.8L, Red Cell Distribution Width 14.3, Platelet Count 941H, Mean Platelet Volume 4.8L, Neutrophils (%) (Auto) , Lymphocytes (%) (Auto) , Monocytes (%) (Auto) , Eosinophils (%) (Auto) , Basophils (%) (Auto) , Neutrophils % (Manual) [Pending], Lymphocytes % (Manual) [Pending], Platelet Estimate [Pending], Platelet Morphology [Pending], Sodium Level 141, Potassium Level 3.6, Chloride Level 107, Carbon Dioxide Level 25, Anion Gap 9, Blood Urea Nitrogen 16, Creatinine 0.7, Estimat Glomerular Filtration Rate , Glucose Level 119H, Calcium Level 9.5, Carcinoembryonic Antigen [Pending], CA 125 Antigen [Pending] Height (Feet): 5 Height (Inches): 6.00 Weight (Pounds): 158 General Appearance: lethargic, mild distress Cardiovascular: tachycardia Respiratory/Chest: decreased breath sounds Abdomen: distended Shekhar Jimenez MD Jul 22, 2019 11:03
[2019-07-22 12:00] VITALS: BP 131/81
[2019-07-22] MEDS: D5 1/2NS 1,000 ML IV SCH (13:35)
--- NOTE | 2019-07-22 21:22 | Surgery Progress Note ---
Surgery Progress Note Subjective Additional Comments Late entry as patient seen and examined earlier today. No acute events. Labs noted. Ill-appearing. Still uncomfortable with abdominal distention. Discussed with medical teams and social services analyst. Plan for discharge to hospice today. Most appropriate care plan made for patient giving history current medical condition and condition. Objective Last 24 Hour Vital Signs Date Time Temp Pulse Resp B/P (MAP) Pulse Ox O2 Delivery O2 Flow Rate FiO2 07/22/19 12:00 99.5 102 19 131/81 (98) 98 07/22/19 11:42 101 24 96 Room Air 21 07/22/19 09:00 Room Air 07/22/19 08:00 98.0 92 20 142/78 (99) 92 07/22/19 04:00 98.2 81 20 129/61 (83) 96 07/22/19 01:28 93 18 99 Room Air 21 92 18 98 07/22/19 01:27 92 18 98 Room Air 21 07/22/19 00:00 98.7 103 20 120/61 (80) 93 07/21/19 22:26 99.1 07/21/19 22:25 99.1 106 I&O Intake and Output 07/21/19 07/22/19 19:00 07:00 Intake Total 220 ml Output Total 1500 ml 250 ml Balance -1280 ml -250 ml Intake Oral 220 ml Output Urine Total 1500 ml 250 ml # Voids 1 Dressing: saturated Wound: other Drains: other Cardiovascular: RSR Respiratory: decreased breath sounds Abdomen: soft, distended, present bowel sounds Extremities: no cyanosis, other Laboratory Tests Test 07/22/19 06:00 White Blood Count 47.9 K/UL (4.8-10.8) *H Red Blood Count 3.34 M/UL (4.20-5.40) L Hemoglobin 9.0 G/DL (12.0-16.0) L Hematocrit 28.3 % (37.0-47.0) L Mean Corpuscular Volume 85 FL (80-99) Mean Corpuscular Hemoglobin 27.0 PG (27.0-31.0) Mean Corpuscular Hemoglobin Concent 31.8 G/DL (32.0-36.0) L Red Cell Distribution Width 14.3 % (11.6-14.8) Platelet Count 941 K/UL (150-450) H Mean Platelet Volume 4.8 FL (6.5-10.1) L Neutrophils (%) (Auto) % (45.0-75.0) Lymphocytes (%) (Auto) % (20.0-45.0) Monocytes (%) (Auto) % (1.0-10.0) Eosinophils (%) (Auto) % (0.0-3.0) Basophils (%) (Auto) % (0.0-2.0) Differential Total Cells Counted 100 Neutrophils % (Manual) 86 % (45-75) H Lymphocytes % (Manual) 7 % (20-45) L Monocytes % (Manual) 3 % (1-10) Eosinophils % (Manual) 0 % (0-3) Basophils % (Manual) 0 % (0-2) Band Neutrophils 4 % (0-8) Platelet Estimate Increased H Platelet Morphology Normal Red Blood Cell Morphology Normal Sodium Level 141 MMOL/L (136-145) Potassium Level 3.6 MMOL/L (3.5-5.1) Chloride Level 107 MMOL/L (98-107) Carbon Dioxide Level 25 MMOL/L (21-32) Anion Gap 9 mmol/L (5-15) Blood Urea Nitrogen 16 mg/dL (7-18) Creatinine 0.7 MG/DL (0.55-1.30) Estimat Glomerular Filtration Rate mL/min (>60) Glucose Level 119 MG/DL (74-106) H Calcium Level 9.5 MG/DL (8.5-10.1) Carcinoembryonic Antigen Pending CA 125 Antigen Pending Plan Problems: (1) Abdominal mass Assessment & Plan: Findings: There is a massive mostly cystic with slight solid component septated mass occupying much of the pelvis and mid to lower abdomen. This measures 33 cm transverse by 14 cm AP by 24 cm craniocaudad. There is an inferior vena cava filter which appears compressed by the mass. It demonstrates a broken off strut that extends into the left common iliac vein. Inferior vena cava appears to be patent. The rectum is distended by feces, measures up to 9.5 cm in diameter. There is no evidence of colonic diverticulosis or diverticulitis. The appendix is not definitely visualized, but no findings to suggest acute appendicitis are evident. No free or loculated intraperitoneal gas or fluid. No small bowel distention. The liver, gallbladder, bile ducts, pancreas, spleen are all unremarkable. The the right adrenal is unremarkable. The left adrenal demonstrates a 2 cm mass which demonstrates nonspecific soft tissue attenuation. Right kidney demonstrates a 7 mm diameter lower pole calyceal calculus. Other smaller calculi are seen in the renal collecting systems bilaterally. There is a left renal cyst. There is mild bilateral hydronephrosis. The bladder is empty, contains a suprapubic catheter. There is bilateral hip and right posterior acetabular surgical hardware. This throws off streak artifact which obscures much of the lower pelvis. The included lung bases demonstrate interstitial septal thickening and groundglass opacity. The heart is enlarged. The bones demonstrate a compression fracture deformity of the L2 vertebral body. There are also compression fracture deformities T7-T8, and large Schmorl's nodes at T11 and 12. 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 Bilateral nonobstructive renal calculi Left renal cyst Postsurgical changes of both hips and the right pelvis Basilar pulmonary interstitial septal thickening and groundglass opacity, may indicate pulmonary edema Mild cardiomegaly Multiple vertebral compression fractures, age indeterminate. Consider MRI for further evaluation if considered clinically relevant (2) Abdominal pain Assessment & Plan: Patient presented with abdominal distention and discomfort. No nausea vomiting fever chills. Significant leukocytosis. Abnormal labs. CT identified as above with large cystic mass ovarian origin. UTI Okay for diet from surgical standpoint IV fluids IV antibiotics Labs ordered Findings: Central abdominal hyperdensity presumably represents massive cystic mass described on recent CT scan. Bowel gas pattern is unremarkable, with moderate gas is seen in the ascending and transverse colon, moderate stool in the right-sided colon, no small bowel distention.. Surgical hardware is seen in the bilateral hips and femurs. Surgical hardware is also seen in the right side of the pelvis. There is an inferior vena cava filter. Impression: Central abdominal hyperdensity, consistent with large cystic mass described on recent CT scan No definite acute process We will follow with serial abdominal examinations No acute surgical mention recommend at this time Thank you for let me participate in patient's care (3) Decubitus skin ulcer Assessment & Plan: Pt presented on admission with multiple pressure injuries. DTPI noted to L buttocks. Base of wound is maroon and indurated with marginal erythema(L)(L)7cm x (W)4.3cm. Non-blanching erythema without induration or fluctuance noted to R buttocks (L) 8cm x (W)6.5cm.. R heel is boggy with non-blanching erythema. L heel is boggy with non-blanching erythema. Small dry callus noted to distal/lateral L foot .No other skin concerns noted. Wounds unlikely etiology of patient's sepsis. Tx.Plan: Apply Moisture Barrier Paste to R and L buttocks. Cover affected areas with Optifoam drsgs. Change every 3 days and prn. Apply Cavilon Skin Barrier to both heels. Cover each heel with Optifoam drsg. Change every 7 days and prn. Reposition at least every 2 hours or as tolerated. Off-load heels with pillow. Nutritional optimization when ready Thank you Additional Comments Discharge planning today to hospice. Continue local wound care as above upon discharge. Please keep patient comfortable Alon Denise Jul 22, 2019 21:22
--- NOTE | 2019-07-23 08:53 | Discharge Summary ---
Discharge Summary Discharge Summary _ DATE OF ADMISSION: 07/16/2019 DATE OF DISCHARGE: 07/22/2019 DISCHARGED BY: Dr. Harris REASON FOR ADMISSION: 89 years old female with past medical history of COPD, GERD, dementia, presented by paramedics from boarding facility with altered level of consciousness for 1 day. Patient also had distended abdomen. Patient was afebrile, no signs of distress upon arrival Vital signs were stable. 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 Mild hydronephrosis presumably due to the above. Evidence of rectal fecal impaction. 2 cm left adrenal mass nonspecific, most likely adenoma, but could be malignant. Mild cardiomegaly. Basilar pulmonary interstitial septal thickening and ground glass opacities, probably indicative of pulmonary edema. Laboratory work-up revealed significant leukocytosis WBC 47.7 , hemoglobin 9.7 , hematocrit 29.1 ,platelet count 836. Sodium 146, BUN 27, creatinine 0.8. Glucose 151. Lactic acid 3.1. AST 32 , ALT 27 , alkaline phosphatase 324. Ammonia 13. Albumin 2.1. Urinalysis revealed evidence of urinary tract infection , +3 protein. EKG revealed sinus rhythm , no acute ischemic changes. Septic work-up initiated in emergency department. Patient received fluid bolus , pancultured and started on broad-spectrum antibiotic. Per [facility]ST patient was DNR/DNI status with comfort focused care. Patient admitted for altered mental status, UTI abdominal mass, and sepsis. CONSULTANTS: ID specialist Dr. Pritchett bingo manager Dr. Jimenez jewel inspector/oncologist Dr. Frankel surgery [facility] COURSE: Patient admitted and started on the IV fluids and empiric antibiotics. Blood cultures were negative. Urine culture revealed E. coli ESBL. Antibiotic regimen optimized as per ID specialist recommendation. Patient showed low-grade fever intermittently. Leukocytosis initially trended down and resolved on 07/18 and then started to trend up again. Per ID specialist , hyperleukocytosis was likely combination of malignancy , urinary tract infection and possible superinfected mass. Surgeon followed with serial abdominal exams. No acute surgical recommend intervention was recommended at that time. Patient presented with multiply pressure injuries on admission. Wound care provided as per surgeon recommendation . Continue wound care upon discharge. Renal parameters and electrolytes were closely monitored. Potassium replaced. Renal ultrasound was negative for hydronephrosis. Nonobstructive right lower pole calyceal calculus. Oncologist followed. Per oncologist, large cystic adnexal mass was likely consistent with ovarian or other gynecological primary malignancy. Patient apparently has had evaluation in the past. Patient with DNR / comfort care due to this condition. Oncologist recommended comfort care and consider hospice services. Hemoglobin and hematocrit were closely monitored with goal to keep hemoglobin above 7. Anemia work-up was consistent with anemia of chronic disease. Prior to discharge hemoglobin 9 , hematocrit 28.3. Platelet count was closely monitored; thrombocytosis initially resolved , but prior to discharge 941. Peripheral smear was reviewed. Thrombocytosis was likely related to malignancy. DVT prophylaxis provided. Pain management was addressed as needed. Supportive care provided. Protein supplements implemented in patient diet as per registered nurse renal recommendation. Bowel regimen instituted. Supplemental oxygen provided and titrated to keep pulse oximetry above 92%. Home medication resumed. Antiemetic provided as needed. Patient stabilized and was discharged home with hospice services as per family wishes. FINAL DIAGNOSES: Sepsis secondary to UTI UTI with E. coli ESBL Hyperleukocytosis Large cystic adnexal mass , likely consistent with ovarian or other gynecological primary malignancy Altered mental status Fecal impaction Malnutrition Anemia Thrombocytosis Hypokalemia Abdominal pain Decubitus skin ulcer, present on admission DISCHARGE MEDICATIONS: See Medication Reconciliation list. DISCHARGE INSTRUCTIONS: Patient was discharged home with hospice services I have been assigned to dictate discharge summary for this account. I was not involved in the patient's management. Leslie Hall NP Jul 23, 2019 08:53
== END 2019-07-22 14:13 | disposition hospice, home (50) | DRG 871 ==
LOC: EDBD 17:34 → EMR 18:15 → EDBEDREQ 18:36 → 4E 19:20 → EDBEDREQ 20:17 → 4E 07-17 15:52
PROC: 30233N1 Transfusion of Nonautologous Red Blood Cells into Peripheral Vein, Percutaneous Approach (ICD-10-PCS; principal; 2019-07-17)
DX: A41.9 Sepsis, unspecified organism (principal); R65.21 Severe sepsis with septic shock; N39.0 Urinary tract infection, site not specified; C56.9 Malignant neoplasm of unspecified ovary; E46 Unspecified protein-calorie malnutrition; N13.2 Hydronephrosis with renal and ureteral calculous obstruction; R41.82 Altered mental status, unspecified; Z66 Do not resuscitate; B96.20 Unspecified Escherichia coli [E. coli] as the cause of diseases classified elsewhere; D63.8 Anemia in other chronic diseases classified elsewhere; F03.90 Unspecified dementia, unspecified severity, without behavioral disturbance, psychotic disturbance, mood disturbance, and anxiety; D47.3 Essential (hemorrhagic) thrombocythemia; K56.41 Fecal impaction; E87.6 Hypokalemia; Z68.25 Body mass index [BMI] 25.0-25.9, adult; L89.319 Pressure ulcer of right buttock, unspecified stage; L89.326 Pressure-induced deep tissue damage of left buttock; J44.9 Chronic obstructive pulmonary disease, unspecified; N28.1 Cyst of kidney, acquired; Z88.0 Allergy status to penicillin; I73.9 Peripheral vascular disease, unspecified; Z79.82 Long term (current) use of aspirin; K21.9 Gastro-esophageal reflux disease without esophagitis; Z95.828 Presence of other vascular implants and grafts
CPT/HCPCS: 36415; 71045; 74018; 74177; 76770; 80048; 80053; 80061; 81003; 82140; 82378; 82607; 82728; 82746; 82977; 83036; 83540; 83550; 83605; 83690; 83735; 83880; 84100; 84443; 84550; 85007; 85025; 85044; 85060; 86140; 86304; 86850; 86900; 86901; 86920; 87040; 87081; 87086; 87181; 93005; 94640; 94664; 96365; 96375; 99285; J7030; J7620; J8499